=== PATIENT | female | born 1945 | race African-American/Black ===

== ENCOUNTER 2016-06-02 15:17 | Observation (INO) | payer MEDICARE, OTHER ==
[~2016-06-02] VITALS: Ht 167.6 cm; Wt 95.4 kg
[~2016-06-02 15:17] MED LIST: ROBA750T3 PO
[2016-06-02 15:19] VITALS: BP 171/112; PULSE 87; RESP 15; TEMP 98; O2SAT 96
[2016-06-02 16:39] LABS: ALT (GPT) 50 U/L (10-53); ANION GAP 6 MEQ/L (5-15); AST (GOT) 66 U/L (15-37); BLOOD UREA NITROGEN 8 MG/DL (7-18); CHLORIDE 102 MEQ/L (98-107); GLOMERULAR FILTRATION RATE 88 ML/MIN (>89); POTASSIUM 4.2 MEQ/L (3.5-5.1); SODIUM (NA) 138 MEQ/L (136-145)
[2016-06-02 16:41] LABS: ALKALINE PHOSPHATASE 62 U/L (45-117); TOTAL BILIRUBIN ADULT 0.9 MG/DL (0.2-1.0)
[2016-06-02 16:45] LABS: AUTOMATED NEUTROPHIL # 2.5 TH/MM3 (1.8-7.7); BASOPHIL % 0.5 % (0.0-2.0); EOSINOPHIL % 0.2 % (0.0-4.0); HEMATOCRIT 37.5 % (35.0-46.0); HEMO FLAGS DIFF FINAL; LYMPH % 23.5 % (9.0-44.0); LYMPHOCYTE # 0.9 TH/MM3 (1.0-4.8); MEAN CELL VOLUME 86.5 FL (80.0-100.0); MEAN CORPUSCULAR HEMOGLOBIN 29.2 PG (27.0-34.0); MEAN CORPUSCULAR HGB CONC 33.7 % (32.0-36.0); MONO % 12.6 % (0.0-8.0); NEUT % 63.2 % (16.0-70.0); PLATELET COUNT 141 TH/MM3 (150-450); RED BLOOD COUNT 4.34 MIL/MM3 (4.00-5.30); RED CELL DISTRIBUTION WIDTH 14.9 % (11.6-17.2); WHITE BLOOD COUNT 3.9 TH/MM3 (4.0-11.0)
[2016-06-02] MEDS ORDERED: ROBA750T PO (18:57)
--- NOTE | 2016-06-02 18:59 | PD ---
HPI Chief Complaint: Dizziness Time Seen by Provider: 18:08 Travel History International Travel<30 days: No Contact w/Intl Traveler<30days: No Traveled to known affect area: No History of Present Illness HPI 70-year-old female complains of left knee pain. Patient states that she probably had a seizure yesterday and injured the left knee. Patient states that family member found her on the floor with jerking motions. Patient states that she had the seizure episode last year. Patient states that she did not see her physician for that. Patient states that he has some dizziness yesterday. Patient denies any dizziness today. Patient denies any headache. Patient denies any neck pain. Patient denies any chest pain or shortness of breath. Patient denies abdominal pain. Patient denies any weakness or numbness of extremity. Patient has history of hypertension and was on metoprolol and Lasix. Patient states that she ran out of her medications about a year ago and has not taking any medication since then. Patient states that she has sharp pain localized to the medial aspect the left knee. Patient denies any pain radiation. Patient states the pain is worse with weightbearing. On a scale of 1-10 the pain is a 7. Patient has history of subarachnoid hemorrhage in 2009 status post coiling procedure. PFSH Past Medical History Anemia: Yes Arthritis: No Asthma: Yes Blood Disorders: No Heart Rhythm Problems: No Cancer: No Cardiovascular Problems: No High Cholesterol: No Chest Pain: No Congestive Heart Failure: No COPD: No Cerebrovascular Accident: No Diabetes: Yes Diminished Hearing: No Genitourinary: No Headaches: No Hypertension: No Musculoskeletal: No Neurologic: No Reproductive: No Respiratory: Yes Migraines: No Myocardial Infarction: No Seizures: No Sleep Apnea: No Menopausal: Yes Past Surgical History Abdominal Surgery: No Cardiac Surgery: No Ear Surgery: No Endocrine Surgery: No Eye Surgery: No Genitourinary Surgery: No Gynecologic Surgery: No Neurologic Surgery: Yes (SUBARACHNOID HEMORRHAGE, ) Oral Surgery: No Thoracic Surgery: No Other Surgery: Yes Social History Alcohol Use: No Tobacco Use: No Substance Use: No Allergies-Medications (Allergen,Severity, Reaction): Coded Allergies: Morphine (Verified Allergy, Severe, TROUBLE BREATHING, 12/10/14) Reported Meds & Prescriptions Reported Meds & Active Scripts Active Reported Robaxin (Methocarbamol) 750 Mg Tab 750 Mg PO Q4H Review of Systems General / Constitutional: No: Fever Eyes: No: Visual changes HENT: No: Headaches Cardiovascular: No: Chest Pain or Discomfort Respiratory: No: Shortness of Breath Gastrointestinal: No: Abdominal Pain Genitourinary: No: Dysuria Musculoskeletal: Positive: Pain Skin: No Rash Neurologic: No: Weakness Psychiatric: No: Depression Endocrine: No: Polydipsia Hematologic/Lymphatic: No: Easy Bruising Physical Exam Narrative GENERAL: Well-nourished, well-developed patient. SKIN: Warm and dry. HEAD: Normocephalic. EYES: No scleral icterus. No injection or drainage. NECK: Supple, trachea midline. No JVD or lymphadenopathy. CARDIOVASCULAR: Regular rate and rhythm without murmurs, gallops, or rubs. RESPIRATORY: Breath sounds equal bilaterally. No accessory muscle use. GASTROINTESTINAL: Abdomen soft, non-tender, nondistended. MUSCULOSKELETAL: No cyanosis, or edema. Patient has moderate tenderness on palpation medial aspect the left knee joint. Full range of motion of the left knee. Knee joints stable. No effusion noted. BACK: Nontender without obvious deformity. No CVA tenderness. Neurologic exam: Patient awake and alert oriented 3. No obvious focal neurological deficit. Data Data Last Documented VS Vital Signs Date Time Temp Pulse Resp B/P Pulse Ox O2 Delivery O2 Flow Rate FiO2 06/02/16 20:10 97.8 67 18 130/76 98 Room Air Orders Electrocardiogram (06/02/16 15:31) Complete Blood Count With Diff (06/02/16 15:31) Comprehensive Metabolic Panel (06/02/16 15:31) Ct Brain W/O Iv Contrast(Rout) (06/02/16 18:47) Knee, Ltd (1 Or 2vws) (06/02/16 18:47) Urinalysis - C+S If Indicated (06/02/16 18:48) Urine Culture (06/02/16 20:00) Lorazepam Inj (Ativan Inj) (06/02/16 21:30) ^ Seizure Precautions (06/02/16 21:19) Bedside Glucose JOYCE.AC&HS (06/02/16 21:19) ^ Blood Glucose Goal (Criteria (06/02/16 21:19) ^ Hypoglycemia 51 - 69 Mg/Dl (06/02/16 21:19) ^ Hypoglycemia 50 Mg/Dl Or < (06/02/16 21:19) ^ Notify Dr: Other (06/02/16 21:19) Dextrose 50% In Mo (Vial) Inj (D50w (Vi (06/02/16 21:30) Glucagon Inj (Glucagon Inj) (06/02/16 21:30) Insulin Aspart Supplemtl Scale (Novolog (06/03/16 07:00) Place In Observation (06/02/16 ) Vital Signs (Adult) Q4H (06/02/16 21:19) Activity Oob With Assistance (06/02/16 21:19) Diet 1800 Ada Cons Carb (06/03/16 Breakfast) Sodium Chlor 0.9% 1000 Ml Inj (Ns 1000 M (06/02/16 21:19) Sodium Chloride 0.9% Flush (Ns Flush) (06/02/16 21:30) Sodium Chloride 0.9% Flush (Ns Flush) (06/03/16 09:00) Ondansetron Inj (Zofran Inj) (06/02/16 21:30) Bisacodyl Supp (Dulcolax Supp) (06/02/16 21:30) Comprehensive Metabolic Panel (06/03/16 06:00) Complete Blood Count With Diff (06/03/16 06:00) Pt Request For Service (06/02/16 21:19) Scd Bilateral/Knee High JOYCE.BID (06/02/16 21:19) Graham Bilateral/Knee High JOYCE.QSHIFT (06/02/16 21:19) Acetaminophen (Tylenol) (06/02/16 21:30) Acetamin-Hydrocod 325-5 Mg ([place] 5-325 (06/02/16 21:30) Hydromorphone Pf Inj (Dilaudid Pf Inj) (06/02/16 21:30) Labs Laboratory Tests Test 06/02/16 06/02/16 16:05 20:00 White Blood Count 3.9 TH/MM3 Red Blood Count 4.34 MIL/MM3 Hemoglobin 12.7 GM/DL Hematocrit 37.5 % Mean Corpuscular Volume 86.5 FL Mean Corpuscular Hemoglobin 29.2 PG Mean Corpuscular Hemoglobin 33.7 % Concent Red Cell Distribution Width 14.9 % Platelet Count 141 TH/MM3 Mean Platelet Volume 8.8 FL Neutrophils (%) (Auto) 63.2 % Lymphocytes (%) (Auto) 23.5 % Monocytes (%) (Auto) 12.6 % Eosinophils (%) (Auto) 0.2 % Basophils (%) (Auto) 0.5 % Neutrophils # (Auto) 2.5 TH/MM3 Lymphocytes # (Auto) 0.9 TH/MM3 Monocytes # (Auto) 0.5 TH/MM3 Eosinophils # (Auto) 0.0 TH/MM3 Basophils # (Auto) 0.0 TH/MM3 CBC Comment DIFF FINAL Differential Comment Sodium Level 138 MEQ/L Potassium Level 4.2 MEQ/L Chloride Level 102 MEQ/L Carbon Dioxide Level 30.0 MEQ/L Anion Gap 6 MEQ/L Blood Urea Nitrogen 8 MG/DL Creatinine 0.79 MG/DL Estimat Glomerular Filtration 88 ML/MIN Rate Random Glucose 88 MG/DL Calcium Level 8.8 MG/DL Total Bilirubin 0.9 MG/DL Aspartate Amino Transf 66 U/L (AST/SGOT) Alanine Aminotransferase 50 U/L (ALT/SGPT) Alkaline Phosphatase 62 U/L Total Protein 8.6 GM/DL Albumin 3.5 GM/DL Urine Color YELLOW Urine Turbidity HAZY Urine pH 5.5 Urine Specific [place] 1.012 Urine Protein NEG mg/dL Urine Glucose (UA) NEG mg/dL Urine Ketones NEG mg/dL Urine Occult Blood TRACE Urine Nitrite NEG Urine Bilirubin NEG Urine Urobilinogen LESS THAN 2.0 MG/DL Urine Leukocyte Esterase LARGE Urine RBC 2 /hpf Urine WBC /hpf Urine Bacteria MOD /hpf Urine Hyaline Casts 1 /lpf Urine Mucus FEW /lpf Microscopic Urinalysis Comment CULTURE INDICATED MDM Medical Decision Making Medical Screen Exam Complete: Yes Emergency Medical Condition: Yes Interpretation(s) Last Impressions Head CT 06/02/161846 Signed Impressions: Service Date/Time: Thursday, June 02, 2016 19:09 - CONCLUSION: 1. No acute findings. 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 Stable frontal encephalomalacia. Elier Pretty MD 2044 PM. CBC within normal limit. CMP within normal limit. Differential Diagnosis Differential diagnosis including new-onset seizure, electrolyte imbalance, TIA, CVA, dehydration, arrhythmia, knee contusion, fracture, dislocation. Narrative Course 70-year-old female with left knee injury and seizure episode yesterday. Diagnosis Primary Impression: Seizure Additional Impression: Fracture of femur, distal, left, closed Qualified Code: S72.402A - Closed fracture of distal end of left femur, unspecified fracture morphology, initial encounter Admitting Information Admitting Physician Requests: Observation Stanley Epps MD Jun 02, 2016 18:59
--- NOTE | 2016-06-02 19:56 | RADRPT ---
EXAM DATE/TIME: 06/02/2016 19:09 [facility] COMPARISON: CT BRAIN W/O CONTRAST, December 11, 2014, 0:52. INDICATIONS : Dizziness since yesterday/. RADIATION DOSE: 32.48 CTDIvol (mGy) MEDICAL HISTORY : Diabetes mellitus type 2. subarachnoid hemorrhage SURGICAL HISTORY : None. ENCOUNTER: Initial ACUITY: 2 days PAIN SCALE: 2/10 LOCATION: cranial TECHNIQUE: Multiple contiguous axial images were obtained of the head. Using automated exposure control and adj ustment of the mA and/or kV according to patient size, radiation dose was kept as low as reasonably a chievable to obtain optimal diagnostic quality images. FINDINGS: Compare November 2014. 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 No mass , hemorrhage or shift. No hydrocephalus. There is some encephalomalacia in the frontal lobes bilatera lly, stable. No recent infarct identified. CONCLUSION: 1. No acute findings. 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 Stable frontal encephalomalaci a. Elier Pretty MD on June 02, 2016 at 19:52 Board Certified Radiologist. This report was verified electronically.
[2016-06-02 20:07] VITALS: BP 132/71; PULSE 96; RESP 18; TEMP 97.8; O2SAT 99
[2016-06-02 20:10] VITALS: BP 130/76; PULSE 67; RESP 18; TEMP 97.8; O2SAT 98
[2016-06-02 21:05] LABS: BACTERIA, URINE MOD /hpf; BLOOD, URINE TRACE (NEG); COMMENT (UR) CULTURE INDICATED; CULTURE IF INDICATED CULTURE INDICATED; GLUCOSE,URINE NEG (NEG); HYALINE CAST, URINE 1 /lpf (RARE); KETONE, URINE NEG (NEG); MUCUS URINE FEW /lpf (OCC); NITRITE,URINE NEG (NEG); PH, URINE 5.5 (5.0-8.5); URINE COLOR YELLOW (YELLW/STRAW)
--- NOTE | 2016-06-02 21:24 | HHI.HP ---
[facility] No Primary Care Physician Admission Diagnosis Diagnoses: (1) Seizure Diagnosis: Principal (2) Non-compliance Diagnosis: Principal (3) Fracture of femur, distal, left, closed Diagnosis: Principal (4) UTI (urinary tract infection) Diagnosis: Principal (5) HTN (hypertension) Diagnosis: Principal (6) DM (diabetes mellitus) Diagnosis: Principal Travel History International Travel<30 Days: No Contact w/Intl Traveler <30 Da: No Traveled to Known Affected Are: No History of Present Illness This is a 70-year-old female with a PMH of HTN, SAH 2008, Seizure Disorder and Non-Compliance who came to the ER with complaints of left knee pain following seizure yesterday. Per patient, she's been off seizure medications of her own accord x1 yr. Denies any previous seizure activity prior to yesterday. Main complaint is left knee pain. Denies any other symptoms. On arrival, BP 171/112 , HR 87, O2 sat 96% on RA, Afebrile. WBC 3.9, at baseline. Platelets 141, previously 143 on 08/28/09. Chemistry essentially unremarkable, at baseline. UA with UTI. CT Head with no acute findings, previous aneurysm clip on the left. Knee X-ray with avulsion fracture through medial aspect of the medial femoral condyle. Ortho consulted by ER physician, however injury likely non- operable. Review of Systems Other ROS: 14 point review of systems otherwise negative. Past Family Social History Past Medical History PMH: HTN, SAH 2009, Seizure Disorder and Non-Compliance Past Surgical History PAST SURGICAL HISTORY: SAH with evacuation Allergies: Coded Allergies: Morphine (Verified Allergy, Severe, TROUBLE BREATHING, 12/10/14) Family History PAST FAMILY HISTORY: Reviewed. No h/o DM or CAD Social History PAST SOCIAL HISTORY: Negative for all, tobacco or drugs. Physical Exam Vital Signs Vital Signs Date Time Temp Pulse Resp B/P Pulse Ox O2 Delivery O2 Flow Rate FiO2 06/02/16 20:10 97.8 67 18 130/76 98 Room Air 06/02/16 20:10 17 99 Room Air 06/02/16 20:07 97.8 96 18 132/71 99 Room Air 06/02/16 15:19 98.0 87 15 171/112 96 Physical Exam PE: GENERAL: Middle-aged female in no acute distress. HEENT: PERRLA, EOMI. No scleral icterus or conjunctival pallor. No lid lag or facial droop. CARDIOVASCULAR: Regular rate and rhythm. No obvious murmurs to auscultation. No chest tenderness to palpation. RESPIRATORY: No obvious rhonchi or wheezing. Clear to auscultation. Breath sounds equal bilaterally. GASTROINTESTINAL: Abdomen soft, non-tender, nondistended. BS normal. MUSCULOSKELETAL: Extremities without clubbing, cyanosis, or edema. No obvious deformities. Left knee tenderness palpation NEUROLOGICAL: Awake, alert and oriented x4. No focal neurologic deficits. Moving both upper and lower extremities spontaneously. Laboratory Laboratory Tests Test 06/02/16 06/02/16 16:05 20:00 White Blood Count 3.9 Red Blood Count 4.34 Hemoglobin 12.7 Hematocrit 37.5 Mean Corpuscular Volume 86.5 Mean Corpuscular Hemoglobin 29.2 Mean Corpuscular Hemoglobin 33.7 Concent Red Cell Distribution Width 14.9 Platelet Count 141 Mean Platelet Volume 8.8 Neutrophils (%) (Auto) 63.2 Lymphocytes (%) (Auto) 23.5 Monocytes (%) (Auto) 12.6 Eosinophils (%) (Auto) 0.2 Basophils (%) (Auto) 0.5 Neutrophils # (Auto) 2.5 Lymphocytes # (Auto) 0.9 Monocytes # (Auto) 0.5 Eosinophils # (Auto) 0.0 Basophils # (Auto) 0.0 CBC Comment DIFF FINAL Differential Comment Sodium Level 138 Potassium Level 4.2 Chloride Level 102 Carbon Dioxide Level 30.0 Anion Gap 6 Blood Urea Nitrogen 8 Creatinine 0.79 Estimat Glomerular Filtration 88 Rate Random Glucose 88 Calcium Level 8.8 Total Bilirubin 0.9 Aspartate Amino Transf 66 (AST/SGOT) Alanine Aminotransferase 50 (ALT/SGPT) Alkaline Phosphatase 62 Total Protein 8.6 Albumin 3.5 Urine Color YELLOW Urine Turbidity HAZY Urine pH 5.5 Urine Specific [place] 1.012 Urine Protein NEG Urine Glucose (UA) NEG Urine Ketones NEG Urine Occult Blood TRACE Urine Nitrite NEG Urine Bilirubin NEG Urine Urobilinogen LESS THAN 2.0 Urine Leukocyte Esterase LARGE Urine RBC 2 Urine WBC Urine Bacteria MOD Urine Hyaline Casts 1 Urine Mucus FEW Microscopic Urinalysis Comment CULTURE INDICATED Date/Time Procedure Status Source Growth 06/02/16 20:00 Urine Culture Received Urine Clean Catch Pending Result Diagram: 06/02/16 1605 06/02/16 1605 Assessment and Plan Problem List: (1) Seizure ICD Code: R56.9 Status: Acute (2) Non-compliance ICD Code: Z91.19 Status: Acute (3) Fracture of femur, distal, left, closed ICD Code: S72.402A Status: Acute (4) UTI (urinary tract infection) ICD Code: N39.0 Status: Acute (5) HTN (hypertension) ICD Code: I10 Status: Acute (6) DM (diabetes mellitus) ICD Code: E11.9 Status: Acute Assessment and Plan A/P: 1. Seizure: h/o Seizure Disorder, off meds for approx 1yr of her own accord. Seizure activity yesterday, did not seek medical attention. CT Head w/ no acute findings, previous aneurysm clip on left, images reviewed by me. Seizure Precautions, Ativan prn. Neurology consulted by ER physician for further recommendations. 2. Non-Compliance: w/ seizure medication and antihypertensives, pt counselled. 3. UTI: U/a w/ UTI. Start IV Rocephin, IVF, repeat labs in am. 4. Left Knee Fx: s/p seizure w/ fall yesterday, X-ray w/ left knee avulsion fracture, Ortho consulted by ER physician, likely non-operable. 5. HTN: BP 170's on arrival, currently 150/88, HR 80. Will monitor. 6. DM: Sliding scale w/ Accu-Cheks. 7. DVT Prophylaxis: SCD/Teds. 8. Social work for d/c planning as needed. 9. Case discussed w/ ER physician at length. Problem Qualifiers (1) Fracture of femur, distal, left, closed: Qualified Code: S72.402A - Closed fracture of distal end of left femur, unspecified fracture morphology, initial encounter Yani Clay MD Jun 02, 2016 21:23
[2016-06-02] MEDS ORDERED: ONDANSETRON HCL 4 MG/2 ML VIAL IVP PRN (21:30)
[2016-06-02] MEDS ORDERED: ACETAMINOPHEN 325 MG TAB PO PRN (21:30)
[2016-06-02] MEDS: SODIUM CHLOR 0.9% 1000 ML INJ 1,000 ML IV SCH (21:30)
[2016-06-02] MEDS ORDERED: HYDROmorphone HCL PF 1 MG/ML VIAL IV PRN (21:30)
[2016-06-02] MEDS ORDERED: BISACODYL 10 MG SUPP PR PRN (21:30)
[2016-06-02] MEDS ORDERED: DEXTROSE 50% IN WATER 50 ML VIAL(D50) IV PUSH PRN (21:30)
[2016-06-02] MEDS ORDERED: GLUCAGON 1 MG/ML VIAL OTHER PRN (21:30)
[2016-06-02] MEDS ORDERED: SODIUM CHLORIDE 0.9% FLUSH 5 ML FLUSH FLUSH PRN (21:30)
[2016-06-02] MEDS ORDERED: LORazepam 2 MG/ML VIAL IV PUSH PRN (21:30)
[2016-06-02] MEDS: cefTRIAXone INJ 1,000 MG in SODIUM CHLORIDE 0.9% INJ 100 ML IV SCH (21:38)
[2016-06-02] MEDS: ACETAMINOPHEN/HYDROcodone 325 MG/5 MG TAB PO PRN (21:39)
--- NOTE | 2016-06-02 21:43 | RADRPT ---
EXAM DATE/TIME: 06/02/2016 19:07 [facility] COMPARISON: No previous studies available for comparison. INDICATIONS : Left knee pain due to fall at 3 am today. MEDICAL HISTORY : None. SURGICAL HISTORY : None. ENCOUNTER: Initial ACUITY: 1 day PAIN SCORE: 5/10 LOCATION: Left Knee. FINDINGS: There is an avulsion fracture through the medial aspect of the medial femoral condyle. Moderate osteo arthritis at the knee joint. Trace joint fluid. CONCLUSION: 1. Avulsion fracture through medial aspect of medial femoral condyle. Moderate osteoarthritis. Elier Pretty MD on June 02, 2016 at 21:41 Board Certified Radiologist. This report was verified electronically.
[2016-06-02 21:53] VITALS: BP 150/88; PULSE 80; RESP 17; TEMP 97.8; O2SAT 98
[2016-06-03] VITALS (14 sets, daily range): BP systolic 126–158; BP diastolic 79–94; PULSE 56–91; RESP 14–18; TEMP 97.6–98.5; O2SAT 97–100
[2016-06-03] MEDS ORDERED: INSULIN ASPART SUPPLEMENTAL SCALE SQ SCH (07:00)
[2016-06-03 08:44] LABS: AUTOMATED NEUTROPHIL # 1.7 TH/MM3 (1.8-7.7); BASOPHIL % 0.4 % (0.0-2.0); EOSINOPHIL % 0.1 % (0.0-4.0); HEMO FLAGS DIFF FINAL; LYMPHOCYTE # 0.8 TH/MM3 (1.0-4.8); MEAN CELL VOLUME 87.4 FL (80.0-100.0); MEAN CORPUSCULAR HEMOGLOBIN 29.4 PG (27.0-34.0); MEAN CORPUSCULAR HGB CONC 33.7 % (32.0-36.0); MONO % 13.7 % (0.0-8.0); NEUT % 58.8 % (16.0-70.0); PLATELET COUNT 127 TH/MM3 (150-450); RED BLOOD COUNT 4.01 MIL/MM3 (4.00-5.30); RED CELL DISTRIBUTION WIDTH 14.6 % (11.6-17.2); WHITE BLOOD COUNT 2.8 TH/MM3 (4.0-11.0)
[2016-06-03 09:10] LABS: ALKALINE PHOSPHATASE 59 U/L (45-117); ALT (GPT) 37 U/L (10-53); ANION GAP 6 MEQ/L (5-15); AST (GOT) 45 U/L (15-37); BICARBONATE 29.2 MEQ/L (21.0-32.0); BLOOD UREA NITROGEN 10 MG/DL (7-18); CHLORIDE 103 MEQ/L (98-107); GLOMERULAR FILTRATION RATE 92 ML/MIN (>89); POTASSIUM 3.8 MEQ/L (3.5-5.1); SODIUM (NA) 138 MEQ/L (136-145); TOTAL BILIRUBIN ADULT 0.6 MG/DL (0.2-1.0)
[2016-06-03] MEDS: SODIUM CHLOR 0.9% 1000 ML INJ 1,000 ML IV SCH (09:46)
[2016-06-03] MEDS: SODIUM CHLORIDE 0.9% FLUSH 5 ML FLUSH FLUSH SCH ×2 (09:47→22:35)
--- NOTE | 2016-06-03 10:06 | PD.ORT.PN ---
Subjective Subjective Remarks Lisa is a 70-year-old female with a syncopal episode with fall from a seated position and chair. She complains of left knee pain. Orthopedics has been consulted due to avulsion fracture of left distal medial condyle of the femur. She has no other orthopedic complaints other than arthritis in bilateral knees with the right being worse than the left. Objective Vitals Vital Signs Date Time Temp Pulse Resp B/P Pulse Ox O2 Delivery O2 Flow Rate FiO2 06/03/16 07:00 97.7 61 18 146/92 100 06/03/16 06:00 65 06/03/16 05:00 97.6 56 18 158/94 98 06/03/16 05:00 56 06/03/16 02:31 97 Room Air 06/03/16 02:30 72 157/90 97 Room Air 06/02/16 22:40 17 06/02/16 21:53 97.8 80 17 150/88 98 Room Air 06/02/16 20:10 97.8 67 18 130/76 98 Room Air 06/02/16 20:10 17 99 Room Air 06/02/16 20:07 97.8 96 18 132/71 99 Room Air 06/02/16 15:19 98.0 87 15 171/112 96 I/O 06/02/16 06/02/16 06/02/16 06/03/16 06/03/16 06/03/16 07:00 15:00 23:00 07:00 15:00 23:00 Intake Total 200 ml 1040 ml Output Total 500 ml Balance 200 ml 540 ml Intake Oral 200 ml 240 ml IV Total 800 ml Output Urine Total 500 ml # Voids 1 # Bowel Movements 0 0 Result Diagram: 06/03/16 0811 06/03/16 0811 Imaging Last 24 hours Impressions Knee X-Ray 06/02/161846 Signed Impressions: Service Date/Time: Thursday, June 02, 2016 19:07 - CONCLUSION: 1. Avulsion fracture through medial aspect of medial femoral condyle. Moderate osteoarthritis. Elier Pretty MD Head CT 06/02/161846 Signed Impressions: Service Date/Time: Thursday, June 02, 2016 19:09 - CONCLUSION: 1. No acute findings. 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 Stable frontal encephalomalacia. Elier Pretty MD Objective Remarks Bilateral upper extremities: Full range of motion and neurovascularly intact Right lower extremity: No pain with hip range of motion. Moderate crepitus through range of motion of the knee. She has mild discomfort through range of motion of the knee. Distally she has intact sensation good capillary refills Left lower extremity: No pain with hip range of motion. She has tenderness to palpation over medial distal femur. She has no tenderness in the lateral side of the knee. She has minimal tenderness to palpation over the medial collateral ligament distal to the fracture. She is stable to varus stresses and also valgus stresses. She does have tenderness with valgus maneuver. He has negative anterior-posterior drawer sign. Knee range of motion is from 0 to 60 .Distally she has intact sensation with good capillary refills. She has strong dorsiflexion plantar flexion of foot Assessment & Plan Assessment and Plan Left avulsion fracture of distal medial condyle of femur It is explained to Lisa that this fracture does not require surgery at this time. It is minimally displaced. Due to the stability of the fracture she will be weightbearing as tolerated in either a knee immobilizer or hinged knee brace. I do want physical therapy to work on gentle range of motion of the knee. No strengthening at this time. She will use a walker for ambulation. Once cleared from physical therapy standpoint, she may be discharged to home with home health physical therapy. I would like to see her back in office in approximately 2 weeks for repeat x-rays. Patient's x-rays and plan are reviewed and agreed with Dr. Garcia. ROSA PRECIADO PA-C Jun 03, 2016 10:06
[2016-06-03] MEDS ORDERED: cloNIDine HCL 0.1 MG TAB PO PRN (10:15)
[2016-06-03] MEDS ORDERED: ENALAPRILAT 1.25 MG/ML VIAL IV PRN (10:15)
[2016-06-03] MEDS ORDERED: hydrALAZINE HCL 20 MG/ML VIAL IV PRN (10:15)
--- NOTE | 2016-06-03 10:20 | HHI.PR ---
Subjective Remarks F/u sz. No recurrence . Not on AED. Dw RN and ortho PA Objective Vitals Vital Signs Date Time Temp Pulse Resp B/P Pulse Ox O2 Delivery O2 Flow Rate FiO2 06/03/16 07:00 97.7 61 18 146/92 100 06/03/16 06:00 65 06/03/16 05:00 97.6 56 18 158/94 98 06/03/16 05:00 56 06/03/16 02:31 97 Room Air 06/03/16 02:30 72 157/90 97 Room Air 06/02/16 22:40 17 06/02/16 21:53 97.8 80 17 150/88 98 Room Air 06/02/16 20:10 97.8 67 18 130/76 98 Room Air 06/02/16 20:10 17 99 Room Air 06/02/16 20:07 97.8 96 18 132/71 99 Room Air 06/02/16 15:19 98.0 87 15 171/112 96 I/O 06/02/16 06/02/16 06/02/16 06/03/16 06/03/16 06/03/16 07:00 15:00 23:00 07:00 15:00 23:00 Intake Total 200 ml 1040 ml Output Total 500 ml Balance 200 ml 540 ml Intake Oral 200 ml 240 ml IV Total 800 ml Output Urine Total 500 ml # Voids 1 # Bowel Movements 0 0 Result Diagram: 06/03/16 0811 06/03/16 0811 Imaging Last Impressions Knee X-Ray 06/02/161846 Signed Impressions: Service Date/Time: Thursday, June 02, 2016 19:07 - CONCLUSION: 1. Avulsion fracture through medial aspect of medial femoral condyle. Moderate osteoarthritis. Elier Pretty MD Head CT 06/02/161846 Signed Impressions: Service Date/Time: Thursday, June 02, 2016 19:09 - CONCLUSION: 1. No acute findings. 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 Stable frontal encephalomalacia. Elier Pretty MD Objective Remarks GENERAL: Middle-aged female in no acute distress. HEENT: PERRLA, EOMI. No scleral icterus or conjunctival pallor. No lid lag or facial droop. CARDIOVASCULAR: Regular rate and rhythm. No obvious murmurs to auscultation. No chest tenderness to palpation. RESPIRATORY: No obvious rhonchi or wheezing. Clear to auscultation. Breath sounds equal bilaterally. GASTROINTESTINAL: Abdomen soft, non-tender, nondistended. BS normal. MUSCULOSKELETAL: Extremities without clubbing, cyanosis, or edema. No obvious deformities. Left knee tenderness palpation NEUROLOGICAL: Awake, alert and oriented x4. No focal neurologic deficits. Moving both upper and lower extremities spontaneously. Procedures none A/P Problem List: (1) Seizure ICD Code: R56.9 Status: Acute (2) Non-compliance ICD Code: Z91.19 Status: Acute (3) Fracture of femur, distal, left, closed ICD Code: S72.402A Status: Acute (4) UTI (urinary tract infection) ICD Code: N39.0 Status: Acute (5) HTN (hypertension) ICD Code: I10 Status: Chronic (6) DM (diabetes mellitus) ICD Code: E11.9 Status: Chronic Assessment and Plan 1. Seizure: h/o Seizure Disorder, off meds for approx 1yr of her own accord. Seizure activity [employer], did not seek medical attention. CT Head w/ no acute findings, previous aneurysm clip on left, images reviewed by me. Seizure Precautions, Ativan prn. Neurology consulted by ER physician for further recommendations. F/u EEG 2. Non-Compliance: w/ seizure medication and antihypertensives, pt counselled. 3. UTI: U/a w/ UTI. Ct IV Rocephin and dc IVF after present bag, repeat labs in am. 4. Left Knee Fx: s/p seizure w/ fall yesterday, X-ray w/ left knee avulsion fracture, Ortho recommends non-operative mgt with PT and brace 5. HTN: BP 170's on arrival, currently 150/88, HR 80. Will monitor. Dc IVF and start prn 6. DM: Sliding scale w/ Accu-Cheks. 7. DVT Prophylaxis: SCD/Teds. Discharge Planning dc in 1-2 days Problem Qualifiers (1) Fracture of femur, distal, left, closed: Qualified Code: S72.402A - Closed fracture of distal end of left femur, unspecified fracture morphology, initial encounter Ld Gilbert MD Jun 03, 2016 10:20
[2016-06-03] MEDS ORDERED: HYDR-3516 PO (10:21)
--- NOTE | 2016-06-03 10:21 | HHI.DCPOC ---
Discharge Care Plan Diagnosis: (1) UTI (urinary tract infection) (2) Seizure (3) Fracture of femur, distal, left, closed Your Health Problems Are: Difficulty with ADL Exercise Tolerance Chronic Pain Goals to Promote Your Health * To prevent worsening of your condition and complications * To maintain your health at the optimal level Directions to Meet Your Goals Take your medications as prescribed Follow your dietary instruction Follow activity as directed Keep your appointments as scheduled Take your immunizations and boosters as scheduled If your symptoms worsen call your PCP, if no PCP go to Urgent Care Center or Emergency Room Smoking is Dangerous to Your Health. Avoid second hand smoke Call the 24-hour hour crisis hotline for domestic abuse at Ld Gilbert MD Jun 03, 2016 10:21
--- NOTE | 2016-06-03 10:22 | HHI.FF ---
Face to Face Verification Diagnosis: (1) Fracture of femur, distal, left, closed Physical Therapy Order: Evaluate and Treat, Improve ambulation, Strength and gait training I have seen patient Lisa Juarez on 06/03/16. My clinical findings support the need for the requested home health care services because: Deconditioned w/ increased weakness I certify that my clinical findings support that this patient is homebound because: Unsteady gait/balance Ld Gilbert MD Jun 03, 2016 10:22
[2016-06-03] MEDS: INSULIN ASPART SUPPLEMENTAL SCALE SQ SCH ×3 (11:00→21:00)
--- NOTE | 2016-06-03 11:18 | PD.CONS ---
History of Present Illness Service Neurology Consult Requested By er Reason for Consult sz Primary Care Physician No Primary Care Physician History of Present Illness 70-year-old female with a PMH of HTN, SAH 2008, aneurysm clip, Seizures, and Non-Compliance who came to the ER with complaints of left knee pain following seizure yesterday. Per patient, she's been off seizure medications of her own accord x1 yr. very poor hx. unable to tell me which medication she was taking, the nature/character of her sz. states she hasn't seen her pcp in quite some time. feels well this am. CT Head with no acute findings, previous aneurysm clip on the left. glucose 93 Review of Systems Other as above and admit hp Past Family Social History Past Medical History PMH: HTN, SAH 2008, Seizure Disorder and Non-Compliance Past Surgical History PAST SURGICAL HISTORY: SAH with evacuation Allergies: Coded Allergies: Morphine (Verified Allergy, Severe, TROUBLE BREATHING, 12/10/14) Family History PAST FAMILY HISTORY: Reviewed. No h/o DM or CAD Social History PAST SOCIAL HISTORY: Negative for all, tobacco or drugs. Review of Systems All other ROS: ROS reviewed as documented in chart Past Family Social History Allergies: Coded Allergies: Morphine (Verified Allergy, Severe, TROUBLE BREATHING, 12/10/14) Active Ordered Medications Current Medications Medications (Trade) Dose Ordered Sig/Marcos Route Start Time Stop Time Status Last Admin (Ativan Inj) 1 mg Q5M PRN IV PUSH 06/02/16 21:30 (D50w (Vial) Inj) 25 ml UNSCH PRN IV PUSH 06/02/16 21:30 Glucagon 1 mg 1 mg UNSCH PRN OTHER 06/02/16 21:30 (NS 1000 ml Inj) 1,000 ml @ 40 mls/hr Q24H IV 06/02/16 21:19 06/03/16 09:46 (NS Flush) 2 ml UNSCH PRN FLUSH 06/02/16 21:30 (NS Flush) 2 ml BID FLUSH 06/03/16 09:00 (Zofran Inj) 4 mg Q6H PRN IVP 06/02/16 21:30 (Dulcolax Supp) 10 mg DAILY PRN ME 06/02/16 21:30 (Tylenol) 650 mg Q6H PRN PO 06/02/16 21:30 ([place] 5-325 Mg) 1 tab Q4H PRN PO 06/02/16 21:30 06/02/16 21:39 Hydromorphone HCl 0.5 mg 0.5 mg Q3H PRN IV 06/02/16 21:30 (Rocephin Inj/NS Inj) 100 ml @ 200 mls/hr Q24H IV 06/02/16 22:00 06/02/16 21:38 (Vasotec Inj) 1.25 mg Q6H PRN IV 06/03/16 10:15 (Apresoline Inj) 10 mg Q6H PRN IV 06/03/16 10:15 (Catapres) 0.1 mg Q6H PRN PO 06/03/16 10:15 Exam I&O / VS 06/02/16 06/02/16 06/03/16 15:00 23:00 07:00 Intake Total 200 ml 1040 ml Output Total 500 ml Balance 200 ml 540 ml Intake Oral 200 ml 240 ml IV Total 800 ml Output Urine Total 500 ml # Voids 1 # Bowel Movements 0 0 Vital Signs Date Time Temp Pulse Resp B/P Pulse Ox O2 Delivery O2 Flow Rate FiO2 06/03/16 08:00 66 06/03/16 07:00 97.7 61 18 146/92 100 06/03/16 06:00 65 06/03/16 05:00 97.6 56 18 158/94 98 06/03/16 05:00 56 06/03/16 02:31 97 Room Air 06/03/16 02:30 72 157/90 97 Room Air 06/02/16 22:40 17 06/02/16 21:53 97.8 80 17 150/88 98 Room Air 06/02/16 20:10 97.8 67 18 130/76 98 Room Air 06/02/16 20:10 17 99 Room Air 06/02/16 20:07 97.8 96 18 132/71 99 Room Air 06/02/16 15:19 98.0 87 15 171/112 96 General: Alert and Oriented, No acute distress Respiratory: Non-labored respirations Neurologic: Alert, Oriented, CN II-XII intact Psychiatric: Cooperative, Appropriate mood & affect, Normal judgement, Non- suicidal Exam Comments left le in cast, able to move toes, able to lift all 4 ext to gravity Review/Management Diagnosis/Plan: (1) Seizure Plan: poor hx she is certainly at higher risk for sz's 2/2 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 s/b d/w pt no driving/swimming/climbing heights outpatient f/u in 1-2 weeks (2) Cerebral aneurysm without rupture Plan: left ica/mca (3) HTN (hypertension) (4) Fracture of femur, distal, left, closed Problem Qualifiers (1) HTN (hypertension): Qualified Code: I10 - Essential hypertension (2) Fracture of femur, distal, left, closed: Qualified Code: S72.402A - Closed fracture of distal end of left femur, unspecified fracture morphology, initial encounter Sarthak Salcedo MD Jun 03, 2016 11:18
[2016-06-03] MEDS: levETIRAcetam 500 MG TAB PO SCH ×2 (13:15→22:33)
[2016-06-03] MEDS: cefTRIAXone INJ 1,000 MG in SODIUM CHLORIDE 0.9% INJ 100 ML IV SCH (22:32)
[2016-06-03] MEDS: ACETAMINOPHEN/HYDROcodone 325 MG/5 MG TAB PO PRN (22:34)
--- NOTE | 2016-06-03 23:34 | MG ---
cc: RALF DEE MD Lab No: [id number] Date: 06/03/16 Age: 70 Sex: F Race: DATE OF 1945 HISTORY A 70-year-old with history of dizziness, possible seizure. Mixed frequency alpha theta background with some apiculate looking waveforms, high-frequency myogenic artifact in the frontal channels. Good EEG variability reactivity. Generalized slowing with transition into drowsy state followed by bursts of 2 to 3 Hz delta activity with theta. Appeared to go back to awake followed by sleep state. Appearance of spindles and K complexes, occasional sharp transients left frontal region, example epoch 73. Some driving with photic stimulation noted. Single EKG showing sinus rhythm. No active seizures. INTERPRETATION Mild left frontal cortical irritability, mixed frequency EEG and sleep state part which may be related to psychotropic medications. Clinical correlation. Ralf Dee MD MG/EO /9:23 PM /11:19 PM MTDD
[2016-06-04] VITALS: PULSE 61
[2016-06-04 01:00] VITALS: PULSE 55
[2016-06-04 02:00] VITALS: PULSE 55
[2016-06-04] MEDS ORDERED: LEVE500 PO (05:38)
[2016-06-04] MEDS ORDERED: ROLLER WALKER1 MI1 (05:38)
--- NOTE | 2016-06-04 07:44 | PD.ORT.PN ---
Subjective Subjective Remarks s/p left femur avulsion fx doing well. pain controlled. has been out of bed with assistance Objective Vitals Vital Signs Date Time Temp Pulse Resp B/P Pulse Ox O2 Delivery O2 Flow Rate FiO2 06/04/16 02:00 55 06/04/16 01:00 55 06/04/16 00:00 61 06/03/16 23:19 98.5 83 18 133/83 98 06/03/16 23:00 91 06/03/16 22:00 62 06/03/16 21:00 86 06/03/16 20:38 98.5 65 18 126/89 99 06/03/16 20:00 71 06/03/16 19:00 66 06/03/16 17:15 14 06/03/16 15:00 98.5 57 14 128/79 98 06/03/16 11:00 98.1 59 18 135/90 98 06/03/16 08:00 66 I/O 06/03/16 06/03/16 06/03/16 06/04/16 06/04/16 06/04/16 07:00 15:00 23:00 07:00 15:00 23:00 Intake Total 1040 ml 720 ml Output Total 500 ml Balance 540 ml 720 ml Intake Oral 240 ml 720 ml IV Total 800 ml Output Urine Total 500 ml # Voids 2 # Bowel Movements 0 1 Result Diagram: 06/03/16 0811 06/03/16 0811 Imaging Last 24 hours Impressions Knee X-Ray 06/02/161846 Signed Impressions: Service Date/Time: Thursday, June 02, 2016 19:07 - CONCLUSION: 1. Avulsion fracture through medial aspect of medial femoral condyle. Moderate osteoarthritis. Elier Pretty MD Head CT 06/02/161846 Signed Impressions: Service Date/Time: Thursday, June 02, 2016 19:09 - CONCLUSION: 1. No acute findings. 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 Stable frontal encephalomalacia. Elier Pretty MD Objective Remarks LLE: +ROM knee brace. moderate swelling. NVI distally Assessment & Plan Assessment and Plan 1) Left avulsion fracture of distal medial condyle of femur WBAT with brace on -work on ROM of knee -ortho clear for discharge home -f/u with Sydnie or AIDEE in 2 weeks Freddy Hartman Jun 04, 2016 07:43
--- NOTE | 2016-06-04 07:45 | HHI.FF ---
Face to Face Verification Diagnosis: (1) Fracture of femur, distal, left, closed Physical Therapy Gait training Knee: Knee fracture, Protocol: Left, Full weight bearing (with brace on) Left LE Weight Bearing: WB as tolerated (with brace on) Left LE Range of Motion: Passive ROM (no strengthening) I have seen patient Lisa Juarez on 06/04/16. My clinical findings support the need for the requested home health care services because: Ltd mobility - disease progression I certify that my clinical findings support that this patient is homebound because: Post-op weakness Freddy Hartman Jun 04, 2016 07:45
[2016-06-04 08:00] VITALS: BP 151/94; PULSE 64; RESP 18; TEMP 97.8; O2SAT 99
--- NOTE | 2016-06-04 09:25 | HHI.FF ---
Face to Face Verification Diagnosis: (1) HTN (hypertension) (2) UTI (urinary tract infection) (3) DM (diabetes mellitus) (4) Fracture of femur, distal, left, closed Physical Therapy Order: Evaluate and Treat, Improve ambulation, Strength and gait training Home Health Nursing Order: Medical education Signs/symptoms of disease process Diabetic education Medication education-adverse effect Nursing assessment with vital signs I have seen patient Lisa Juarez on 06/04/16. My clinical findings support the need for the requested home health care services because: Ltd mobility - disease progression I certify that my clinical findings support that this patient is homebound because: Unsteady gait/balance Unsafe to leave home unassisted Ld Gilbert MD Jun 04, 2016 09:25
--- NOTE | 2016-06-04 09:48 | HHI.PR ---
Subjective Remarks Seen for Seizure and UTI. She is doing okay asymptomatic without UTI symptoms. No recurrence of seizure. Tolerating Keppra. Discussed with RN and case management Objective Vitals Vital Signs Date Time Temp Pulse Resp B/P Pulse Ox O2 Delivery O2 Flow Rate FiO2 06/04/16 02:00 55 06/04/16 01:00 55 06/04/16 00:00 61 06/03/16 23:19 98.5 83 18 133/83 98 06/03/16 23:00 91 06/03/16 22:00 62 06/03/16 21:00 86 06/03/16 20:38 98.5 65 18 126/89 99 06/03/16 20:00 71 06/03/16 19:00 66 06/03/16 17:15 14 06/03/16 15:00 98.5 57 14 128/79 98 06/03/16 11:00 98.1 59 18 135/90 98 I/O 06/03/16 06/03/16 06/03/16 06/04/16 06/04/16 06/04/16 07:00 15:00 23:00 07:00 15:00 23:00 Intake Total 1040 ml 720 ml Output Total 500 ml Balance 540 ml 720 ml Intake Oral 240 ml 720 ml IV Total 800 ml Output Urine Total 500 ml # Voids 2 # Bowel Movements 0 1 Result Diagram: 06/03/16 0811 06/03/16 0811 Imaging Last Impressions Knee X-Ray 06/02/161846 Signed Impressions: Service Date/Time: Thursday, June 02, 2016 19:07 - CONCLUSION: 1. Avulsion fracture through medial aspect of medial femoral condyle. Moderate osteoarthritis. Elier Pretty MD Head CT 06/02/161846 Signed Impressions: Service Date/Time: Thursday, June 02, 2016 19:09 - CONCLUSION: 1. No acute findings. 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 Stable frontal encephalomalacia. Elier Pretty MD Objective Remarks GENERAL: Middle-aged female in no acute distress. HEENT: PERRLA, EOMI. No scleral icterus or conjunctival pallor. No lid lag or facial droop. CARDIOVASCULAR: Regular rate and rhythm. No obvious murmurs to auscultation. No chest tenderness to palpation. RESPIRATORY: No obvious rhonchi or wheezing. Clear to auscultation. Breath sounds equal bilaterally. GASTROINTESTINAL: Abdomen soft, non-tender, nondistended. BS normal. MUSCULOSKELETAL: Extremities without clubbing, cyanosis, or edema. No obvious deformities. Left knee tenderness palpation NEUROLOGICAL: Awake, alert and oriented x4. No focal neurologic deficits. Moving both upper and lower extremities spontaneously. Procedures none A/P Problem List: (1) Seizure ICD Code: R56.9 Status: Acute (2) Non-compliance ICD Code: Z91.19 Status: Acute (3) Fracture of femur, distal, left, closed ICD Code: S72.402A Status: Acute (4) UTI (urinary tract infection) ICD Code: N39.0 Status: Acute (5) HTN (hypertension) ICD Code: I10 Status: Chronic (6) DM (diabetes mellitus) ICD Code: E11.9 Status: Chronic Assessment and Plan 1. Seizure: h/o Seizure Disorder, off meds for approx 1yr of her own accord. Seizure activity DRUM TESTER, did not seek medical attention. CT Head w/ no acute findings, previous aneurysm clip on left, images reviewed by me. Seizure Precautions, Ativan prn. Neurology consulted by ER physician for further recommendations. F/u EEG negative for seizure. Started on Keppra which she is tolerating. Patient aware not to drive for 6 months, carry young kids, climb heights and swim alone 2. Non-Compliance: w/ seizure medication and antihypertensives, pt counselled. 3. UTI: U/a w/ UTI. Ct IV Rocephin and dc IVF after present bag. Switch to Ceftin. Follow urine culture 4. Left Knee Fx: s/p seizure w/ fall, X-ray w/ left knee avulsion fracture, Ortho recommends non-operative mgt with PT and brace 5. HTN: BP 170's on arrival, currently 150/88, HR 80. Will monitor. Dc IVF and start prn 6. DM: Sliding scale w/ Accu-Cheks. 7. DVT Prophylaxis: SCD/Teds. Discharge Planning Stable for discharge Problem Qualifiers (1) Fracture of femur, distal, left, closed: Qualified Code: S72.402A - Closed fracture of distal end of left femur, unspecified fracture morphology, initial encounter (2) HTN (hypertension): Qualified Code: I10 - Essential hypertension Ld Gilbert MD 22, 2017 09:48
[2016-06-04] MEDS ORDERED: CEFT250T8 PO (09:50)
[2016-06-04] MEDS: levETIRAcetam 500 MG TAB PO SCH (09:51)
[2016-06-04 10:00] VITALS: PULSE 62
[2016-06-04 11:00] VITALS: PULSE 69
--- NOTE | 2016-06-05 09:54 | MB ---
cc: JAMA SPEAR DATE OF CONSULTATION: 06/03/2016. REASON FOR CONSULTATION: Avulsion fracture of the left distal femur. CONSULTING PHYSICIAN: Dr. Stanley Epps. ADMITTING DIAGNOSIS: 1. Seizure. 2. Urinary tract infection. 3. Hypertension. 4. Diabetes. 5. Fracture of the left distal femur. HISTORY OF PRESENT ILLNESS Ms. Juarez is a 70-year-old female with past medical history of hypertension, diabetes, seizure disorder who yesterday was sitting on a chair next to a friend while playing cards. She began to lose consciousness and woke up on the floor with pain to her left knee. She was brought to the emergency room after seizure to be evaluated. She states that she was able to stand on the left lower extremity but did have discomfort. She was examined bedside on the cardiac floor with x-rays that confirm an avulsion fracture to the medial aspect of the distal femoral condyle. REVIEW OF SYSTEMS: She denies any fevers or chills, blurred vision, double vision, chest pains or palpitations, shortness of breath and cough, nausea, vomiting, diarrhea, constipation. She does complain of dysuria. No chronic rashes. Denies any heat or cold intolerances. No history of easy bruising or blood clots but does complain of varicose veins and no depression or anxiety. PAST MEDICAL HISTORY: 1. Hypertension. 2. Seizure disorder. 3. Diabetes. PAST SURGICAL HISTORY: 1. with evacuation. ALLERGIES: MORPHINE. FAMILY HISTORY: Noncontributory. SOCIAL HISTORY: Negative for all tobacco or drugs. PHYSICAL EXAMINATION: VITAL SIGNS: Temperature is 97.7 with a pulse of 61 with respiratory rate of 18, blood pressure is 146/92 with pulse oximetry of 100 on room air. GENERAL: Ms. Juarez is a 70-year-old female who is well-nourished and well-developed examined in bed in no acute distress. HEAD, EYES, EARS, NOSE, THROAT: Pupils are equal and reactive to light and accommodation. Extraocular movements are intact. NECK: Trachea is midline with no lymphadenopathy. CARDIOVASCULAR: Regular rate and rhythm. No obvious murmurs. RESPIRATORY: No obvious wheezing with no accessory muscle use. GASTROINTESTINAL: Abdomen soft and nondistended. MUSCULOSKELETAL: Examination of the bilateral upper extremities reveals no decreased range of motion in the shoulders, elbows or wrists. She has intact sensation over the radial, ulnar and median nerve distributions with good capillary refills. She is able to extend her fingers and make fists bilaterally. 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 Examination of the right lower extremity reveals no pain with hip range of motion. She has moderate crepitus through range of motion of the knee but the range of motion of the knee is from 0 degrees to 120 degrees. She has varicose veins over her tibia. The skin is intact. Distally she has intact sensation. Good capillary refill. Strong dorsiflexion and plantar flexion of the foot. Examination of the left lower extremity reveals no pain with hip range of motion. She has no tenderness over the lateral portion of the knee. She has tenderness over the medial distal femur. She has tenderness with valgus maneuver of the knee but is stable. She has no pain with varus maneuver. She has negative anterior and posterior draw signs of her knee. Distally she has intact sensation with good capillary refill. Range of motion of the knee is from 0 to 60 degrees. LABORATORY TESTS: She had a white blood cell count of 2.8, hemoglobin of 11.8 and hematocrit of 35.0. Platelet count is 127,000. Chemistry is all within normal limits except for AST, which is elevated at 45 and albumin is low at 2.9. X-RAY IMAGING: X-ray examination of the left knee reveals an avulsion fracture to the medial aspect of the medial femoral condyle. There is moderate osteoarthritis noted with joint space narrowing. ASSESSMENT: 1. Nondisplaced fracture of medial distal femoral condyle. 2. Seizure. 3. Urinary tract infection. 4. Hypertension. 5. Diabetes. PLAN AT THIS TIME: 1. She will be fitted for a hinged knee brace. 2. She may be weightbearing as tolerated on the left lower extremity using a walker in either her knee immobilizer or a hinged knee brace. 3. Physical therapy will work with her on a walker. 4. At this point, it is nonoperative treatment. 5. Would like to repeat x-rays of her left knee in two weeks in the office to evaluate alignment of the distal femoral condyle. 6. Once cleared with physical therapy, she may be discharged to home to follow up in the outpatient setting. The patient's x-rays and plan were reviewed with Dr. Spear and agreed with. Thank you for the consultation. Rajendra Overton PA-C dictating for Dr. Jama Spear. The history, physical exam, radiographs, assessment and plan were discussed and reviewed. I agree with the current plan of treatment.A mid-level provider in my office (nurse practitioner or physician admin assistant) may see this patient on follow-up visits and continue to implement the objectives of this plan including: Starting or adjusting medications, injections, cast application, orthotics, brace application, physical therapy, radiological studies (including x-ray, MRI, CT, ultrasound, bone scan), vascular studies, neurologic studies, specialist consultation, and proceeding with surgical management, as appropriate. MD DANE Burt/DEMAR /10:11 AM /9:53 AM MTDD
--- NOTE | 2016-06-05 23:01 | EKG ---
Date Performed: 06/02/2016 Time Performed: 16:10:27 PTAGE: 70 years EKG: Sinus rhythm LEFT ANTERIOR FASCICULAR BLOCK ABNORMAL ECG INTERPRETATION BASED ON A DEFAULT AGE OF 40 YEARS Compar ed to the PREVIOUS TRACING , no significant change DOCTOR: Joshua Gamez Interpretating Date/Time 06/05/2016 23:01:02
== END 2016-06-04 13:07 | disposition home or self-care (01) ==
LOC: NEPA 15:17 → NEDA 21:33 → NEDH 06-03 01:16 → HCIN 06-03 04:53
PROVIDERS: ADMIT Internal Medicine; ATTEND Internal Medicine
DX: S72.402A Unspecified fracture of lower end of left femur, initial encounter for closed fracture (principal); G40.909 Epilepsy, unspecified, not intractable, without status epilepticus; I10 Essential (primary) hypertension; N39.0 Urinary tract infection, site not specified; B96.1 Klebsiella pneumoniae [K. pneumoniae] as the cause of diseases classified elsewhere; E11.9 Type 2 diabetes mellitus without complications; J45.909 Unspecified asthma, uncomplicated; M17.0 Bilateral primary osteoarthritis of knee; G93.89 Other specified disorders of brain; Z79.84 Long term (current) use of oral hypoglycemic drugs; Z91.19 Patient's noncompliance with other medical treatment and regimen; W07.XXXA Fall from chair, initial encounter
CPT/HCPCS: 70450; 73560; 80053; 81001; 82550; 82948; 85025; 87077; 87086; 87186; 93005; 95819; 97110; 97116; 97163; 99285; G0378; G8987; G8988; J0696; J7030; L1810; L1830

== ENCOUNTER 2017-08-12 20:37 | Emergency (ER) | payer MEDICARE, OTHER ==
[~2017-08-12] VITALS: Ht 152.4 cm; Wt 88.0 kg
[~2017-08-12 20:37] MED LIST changes: +CEFT250T8 PO; +HYDR-3516 PO; +LEVE500 PO; +ROBA750T PO; -ROBA750T3 PO; +ROLLER WALKER1 MI1
[2017-08-12 21:13] VITALS: BP 152/72; PULSE 71; RESP 20; TEMP 98.4; O2SAT 96
--- NOTE | 2017-08-12 22:23 | PD ---
HPI Chief Complaint: Injury Time Seen by Provider: 22:14 Travel History International Travel<30 days: No Contact w/Intl Traveler<30days: No Traveled to known affect area: No History of Present Illness HPI Patient is a 71-year-old female presenting to the emergency department crimping her rings on her left third finger. Injury occurred approximately 4 hours ago. Patient states her pain is a 7 out of 10 and states is aching and throbbing. Symptom onset was sudden, there are no alleviating factors. She has no other complaints or injuries reported at this time. [facility] Past Medical History Anemia: Yes Asthma: Yes Cardiovascular Problems: Yes Diabetes: Yes Endocrine: Yes Hypertension: Yes Implanted Vascular Access Dvce: Yes Musculoskeletal: Yes (femur fracture from fall ) Neurologic: Yes Respiratory: Yes Seizures: Yes Tetanus Vaccination: < 5 Years Influenza Vaccination: No ?: Not LMP: menapause Menopausal: Yes Past Surgical History Body Medical Devices: clips in brain Neurologic Surgery: Yes (SUBARACHNOID HEMORRHAGE, ) Other Surgery: Yes Social History Alcohol Use: No Tobacco Use: Yes Substance Use: No Allergies-Medications (Allergen,Severity, Reaction): Coded Allergies: morphine (Unverified Allergy, Severe, TROUBLE BREATHING, 08/12/17) Reported Meds & Prescriptions Reported Meds & Active Scripts Active Keppra (Levetiracetam) 500 Mg Tab 500 Mg PO Q12HR Roller Walker (Misc. Devices) 1 Mis Mis 1 Ea .ROUTE NOW Hydrocodone-Acetaminophen 5-325 mg Tab 1 Tab PO Q6HR PRN Reported Robaxin (Methocarbamol) 750 Mg Tab 750 Mg PO Q4H Review of Systems Except as stated in HPI: all other systems reviewed are Neg Musculoskeletal: Positive: Edema, Pain Physical Exam Narrative GENERAL: Well-developed, well-nourished, well-appearing -[place] female. Presenting in no acute distress. SKIN: Warm and dry. HEAD: Normocephalic. EYES: No scleral icterus. No injection or drainage. NECK: Supple, trachea midline. No JVD or lymphadenopathy. CARDIOVASCULAR: Regular rate and rhythm without murmurs, gallops, or rubs. RESPIRATORY: Breath sounds equal bilaterally. No accessory muscle use. GASTROINTESTINAL: Abdomen soft, non-tender, nondistended. MUSCULOSKELETAL: No cyanosis, mild edema to the left third finger, there are 2 rings crimped onto the finger. Brisk less than 3 second capillary refill. BACK: Nontender without obvious deformity. No CVA tenderness. Data Data Last Documented VS Vital Signs Date Time Temp Pulse Resp B/P (MAP) Pulse Ox O2 Delivery O2 Flow Rate FiO2 08/12/17 21:13 98.4 71 20 152/72 (98) 96 Orders Orders Hand, Limited (2vws) (08/12/17 ) MDM Medical Decision Making Medical Screen Exam Complete: Yes Emergency Medical Condition: Yes Interpretation(s) Vital Signs Date Time Temp Pulse Resp B/P (MAP) Pulse Ox O2 Delivery O2 Flow Rate FiO2 08/12/17 21:13 98.4 71 20 152/72 (98) 96 Differential Diagnosis Fracture versus contusion versus Narrative Course Patient presented with ring stuck on her left third finger after getting her hand caught in the door. Rings were removed with claudia the ER geospatial technician. X -ray ordered and pending. X-rays negative for acute fracture. Patient is encouraged to take ibuprofen or acetaminophen as needed and as directed for pain. She is encouraged to return to emergency department for any new worsening symptoms. Patient stable for discharge. Diagnosis Primary Impression: Contusion, finger Qualified Codes: S60.032A - Contusion of left middle finger without damage to nail, initial encounter Referrals: Primary Care Physician Patient Instructions: Contusion in Adults (ED), General Instructions Additional Instructions: Follow-up with your primary doctor Take Tylenol or ibuprofen as needed and as directed for pain Apply cool compress to affected area Return to emergency department for any new or worsening symptoms Med/Other Pt SpecificInfo: No Change to Meds Disposition: 01 DISCHARGE HOME Condition: Stable Annelise Gomes Aug 12, 2017 22:23
--- NOTE | 2017-08-12 22:33 | RADRPT ---
EXAM DATE/TIME: 08/12/2017 22:27 [place] COMPARISON: No previous studies available for comparison. INDICATIONS : Left hand proximal 3rd finger pain, ring stuck on finger MEDICAL HISTORY : Diabetes mellitus type 2. subarachnoid hemorrhage SURGICAL HISTORY : None. ENCOUNTER: Initial ACUITY: 1 day PAIN SCORE: 1/10 LOCATION: Left Hand FINDINGS: Two view examination of the left hand demonstrates no soft tissue swelling, dislocation, or fracture. The joint spaces are maintained. Bony mineralization is normal. CONCLUSION: No acute disease. Jeffery Lopez MD on August 12, 2017 at 22:31 Board Certified Radiologist. This report was verified electronically.
== END 2017-08-12 23:01 | disposition home or self-care (01) ==
LOC: NEPD 20:37
DX: S60.032A Contusion of left middle finger without damage to nail, initial encounter (principal); W23.0XXA Caught, crushed, jammed, or pinched between moving objects, initial encounter; W49.04XA Ring or other jewelry causing external constriction, initial encounter; J45.909 Unspecified asthma, uncomplicated; E11.9 Type 2 diabetes mellitus without complications; I10 Essential (primary) hypertension; Z72.0 Tobacco use
CPT/HCPCS: 73120; 99283

== ENCOUNTER 2017-09-24 21:10 | Observation (INO) | payer MEDICARE ==
[~2017-09-24] VITALS: Ht 165.1 cm; Wt 65.0 kg
[~2017-09-24 21:10] MED LIST changes: -CEFT250T8 PO
[2017-09-24 21:18] VITALS: BP 138/82; PULSE 89; RESP 18; TEMP 98.8; O2SAT 97
[2017-09-24 21:57] VITALS: O2SAT 98
[2017-09-24] MEDS ORDERED: SODIUM CHLORIDE 0.9% FLUSH 10 ML FLUSH IV FLUSH PRN (22:00)
[2017-09-24] MEDS ORDERED: SODIUM CHLOR 0.9% 1000 ML INJ 1,000 ML IV ONE (22:00)
--- NOTE | 2017-09-24 22:12 | PD ---
HPI Chief Complaint: Altered Mental Status Time Seen by Provider: 21:39 Travel History International Travel<30 days: No Contact w/Intl Traveler<30days: No Traveled to known affect area: No History of Present Illness HPI 71-year-old female presents to the emergency department via EMS for evaluation of altered mental status. According to EMS, she has been altered for 1 month. However, I spoke to the Casandra ([phone]) and she states that for the past 2 weeks she has been going in and out of the bathroom and stating that she is seeing people and that people are recording her. She will not bathe and has not eaten in 2 days. They state that she has a significant history of a subarachnoid hemorrhage 3-4 years ago. She is refusing to go to her doctor. The patient is a poor historian. She is alert and oriented to person and place only. She denies any headaches. No chest pain shortness breath. No abdominal pain. No nausea, vomiting, diarrhea. Patient has no complaints on my exam. She does admit to having hallucinations and states "that is why they sent me here". No exacerbating or alleviating factors. Moderate severity. PFSH Past Medical History Anemia: Yes Arthritis: No Asthma: Yes Blood Disorders: No Heart Rhythm Problems: No Cancer: No Cardiovascular Problems: Yes High Cholesterol: No Chest Pain: No Congestive Heart Failure: No COPD: No Cerebrovascular Accident: No Diabetes: Yes Patient Takes Glucophage: No Diminished Hearing: No Endocrine: Yes Gastrointestinal Disorders: No Genitourinary: No Headaches: No Hypertension: Yes Implanted Vascular Access Dvce: Yes Musculoskeletal: Yes (femur fracture from fall ) Neurologic: Yes Psychiatric: No Reproductive: No Respiratory: Yes Migraines: No Myocardial Infarction: No Seizures: Yes Sleep Apnea: No Menopausal: Yes Past Surgical History Abdominal Surgery: No Body Medical Devices: clips in brain Cardiac Surgery: No Ear Surgery: No Endocrine Surgery: No Eye Surgery: No Genitourinary Surgery: No Gynecologic Surgery: No Neurologic Surgery: Yes (SUBARACHNOID HEMORRHAGE, ) Oral Surgery: No Thoracic Surgery: No Other Surgery: Yes Social History Alcohol Use: No Tobacco Use: Yes Substance Use: No Allergies-Medications (Allergen,Severity, Reaction): Coded Allergies: morphine (Unverified Allergy, Severe, TROUBLE BREATHING, 09/24/17) Reported Meds & Prescriptions Reported Meds & Active Scripts Active Keppra (Levetiracetam) 500 Mg Tab 500 Mg PO Q12HR Roller Walker (Misc. Devices) 1 Mis Mis 1 Ea .ROUTE NOW Hydrocodone-Acetaminophen 5-325 mg Tab 1 Tab PO Q6HR PRN Reported Robaxin (Methocarbamol) 750 Mg Tab 750 Mg PO Q4H Review of Systems Except as stated in HPI: all other systems reviewed are Neg Physical Exam Exam Limitations: Altered Mental Status Narrative GENERAL: Well-nourished, well-developed female patient, afebrile. Patient is alert and oriented to person and place only. SKIN: Focused skin assessment warm/dry. HEAD: Normocephalic. Atraumatic. ENT: Mucosa pink and moist. No erythema or exudates. No uvular edema. No uvular , palatal, or tonsillar deviation. Airway patent. Nasal turbinates appear normal without nasal blood, purulent drainage or septal hematoma. Bilateral tympanic membranes clear without erythema or perforation. EYES: No scleral icterus. No injection or drainage. NECK: Supple, trachea midline. No JVD or lymphadenopathy. CARDIOVASCULAR: Regular rate and rhythm without murmurs, gallops, or rubs. Bilateral radial and pedal pulses 2+ RESPIRATORY: Breath sounds equal bilaterally. No accessory muscle use. Lung sounds are clear to auscultation. GASTROINTESTINAL: Abdomen soft, non-tender, nondistended. MUSCULOSKELETAL: No cyanosis, or edema. Bilateral upper and lower extremity strength 5/5. All extremities are neurovascularly intact. BACK: Nontender without obvious deformity. No CVA tenderness. Data Data Last Documented VS Vital Signs Date Time Temp Pulse Resp B/P (MAP) Pulse Ox O2 Delivery O2 Flow Rate FiO2 09/24/17 21:57 98 Room Air 09/24/17 21:18 98.8 89 18 138/82 (100) Orders Orders Electrocardiogram (09/24/17 21:53) Ammonia (09/24/17 21:53) Complete Blood Count With Diff (09/24/17 21:53) Comprehensive Metabolic Panel (09/24/17 21:53) Creatine Kinase (Cpk) (09/24/17 21:53) Prothrombin Time / Inr (Pt) (09/24/17 21:53) Act Partial Throm Time (Ptt) (09/24/17 21:53) Troponin I (09/24/17 21:53) Urinalysis - C+S If Indicated (09/24/17 21:53) Chest, Single Ap (09/24/17 21:53) Ct Brain W/O Iv Contrast(Rout) (09/24/17 21:53) Blood Glucose (09/24/17 21:53) Ecg Monitoring (09/24/17 21:53) Iv Access Insert/Monitor (09/24/17 21:53) Oximetry (09/24/17 21:53) Sodium Chloride 0.9% Flush (Ns Flush) (09/24/17 22:00) Sodium Chlor 0.9% 1000 Ml Inj (Ns 1000 M (09/24/17 22:00) Magnesium (Mg) (09/24/17 21:53) Labs Laboratory Tests Test 09/24/17 22:06 White Blood Count 3.1 TH/MM3 Red Blood Count 4.72 MIL/MM3 Hemoglobin 13.3 GM/DL Hematocrit 40.6 % Mean Corpuscular Volume 86.1 FL Mean Corpuscular Hemoglobin 28.2 PG Mean Corpuscular Hemoglobin Concent 32.7 % Red Cell Distribution Width 14.4 % Platelet Count 107 TH/MM3 Mean Platelet Volume 9.0 FL Neutrophils (%) (Auto) 71.3 % Lymphocytes (%) (Auto) 18.0 % Monocytes (%) (Auto) 9.9 % Eosinophils (%) (Auto) 0.4 % Basophils (%) (Auto) 0.4 % Neutrophils # (Auto) 2.2 TH/MM3 Lymphocytes # (Auto) 0.6 TH/MM3 Monocytes # (Auto) 0.3 TH/MM3 Eosinophils # (Auto) 0.0 TH/MM3 Basophils # (Auto) 0.0 TH/MM3 CBC Comment DIFF FINAL Differential Comment Prothrombin Time 12.6 SEC Prothromb Time International Ratio 1.2 RATIO Activated Partial Thromboplast Time 22.3 SEC [facility] Medical Decision Making Medical Screen Exam Complete: Yes Emergency Medical Condition: Yes Medical Record Reviewed: Yes Interpretation(s) chest x-ray - CONCLUSION: No acute disease. ct brain - CONCLUSION: No acute intracranial findings Differential Diagnosis Intracranial abnormality versus electrolyte abnormality versus UTI versus pneumonia versus sepsis Narrative Course 71-year-old female presents to the emergency department for altered mental status. EKG, CBC, CMP, ammonia, CK, troponin, magnesium, PTT, PT/INR, UA, chest x-ray, CT the brain are ordered and pending. Patient is given normal saline 1 L IV bolus. EKG shows SR, HR 73, no acute ST changes. CBC shows leukopenia of 3.1. CMP is pending. Ammonia is pending. CK, Troponin, Magnesium are pending. Coags show no acute abnormality. UA is pending. Chest x-ray shows no acute disease. CT of the brain shows no acute intracranial findings. My attending physician, Dr. Pineda, will follow up on labs and disposition patient. Caron Noriega September 24, 2017 22:12
--- NOTE | 2017-09-24 22:20 | RADRPT ---
EXAM DATE/TIME: 09/24/2017 22:01 [facility] COMPARISON: No previous studies available for comparison. INDICATIONS : Altered mental status. Shortness of breath. MEDICAL HISTORY : Diabetes mellitus type 2. subarachnoid hemorrhage SURGICAL HISTORY : None. ENCOUNTER: Initial ACUITY: 1 day PAIN SCORE: 0/10 LOCATION: Bilateral chest FINDINGS: A single view of the chest demonstrates the lungs to be symmetrically aerated without evidence of mas s, infiltrate or effusion. The cardiomediastinal contours are unremarkable. Osseous structures are intact. CONCLUSION: No acute disease. Jono Joiner MD on September 24, 2017 at 22:17 Board Certified Radiologist. This report was verified electronically.
[2017-09-24 22:29] LABS: AUTOMATED NEUTROPHIL # 2.2 TH/MM3 (1.8-7.7); BASOPHIL % 0.4 % (0.0-2.0); EOSINOPHIL % 0.4 % (0.0-4.0); HEMATOCRIT 40.6 % (35.0-46.0); HEMOGLOBIN 13.3 GM/DL (11.6-15.3); LYMPHOCYTE # 0.6 TH/MM3 (1.0-4.8); MEAN CELL VOLUME 86.1 FL (80.0-100.0); MEAN CORPUSCULAR HEMOGLOBIN 28.2 PG (27.0-34.0); MEAN CORPUSCULAR HGB CONC 32.7 % (32.0-36.0); MONO % 9.9 % (0.0-8.0); MONOCYTE # 0.3 TH/MM3 (0-0.9); NEUT % 71.3 % (16.0-70.0); PLATELET COUNT 107 TH/MM3 (150-450); RED BLOOD COUNT 4.72 MIL/MM3 (4.00-5.30); RED CELL DISTRIBUTION WIDTH 14.4 % (11.6-17.2); WHITE BLOOD COUNT 3.1 TH/MM3 (4.0-11.0)
--- NOTE | 2017-09-24 22:35 | RADRPT ---
EXAM DATE/TIME: 09/24/2017 22:18 [facility] COMPARISON: CT BRAIN W/O CONTRAST, June 02, 2016, 19:09. INDICATIONS : Altered mental status. RADIATION DOSE: 56.35 CTDIvol (mGy) MEDICAL HISTORY : Cardiovascular disease. Seizures. Aneurysm, intracranial. SURGICAL HISTORY : None. ENCOUNTER: Initial ACUITY: 1 day PAIN SCALE: 0/10 LOCATION: cranial TECHNIQUE: Multiple contiguous axial images were obtained of the head. Using automated exposure control and adj ustment of the mA and/or kV according to patient size, radiation dose was kept as low as reasonably a chievable to obtain optimal diagnostic quality images. DICOM format image data is available electro nically for review and comparison. FINDINGS: Previous coil embolization of small aneurysm at the anterior left skull base. 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 Patchy diminished attenuation in periventricular white matter which also appears stable. No evidence of hemorrhage or mass. Nothing to suggest acute infarct ion. Extracranial structures are stable and benign. CONCLUSION: No acute intracranial findings Jono Joiner MD on September 24, 2017 at 22:29 Board Certified Radiologist. This report was verified electronically.
[2017-09-24 22:39] LABS: INTERNATIONAL NORMALIZED RATIO 1.2 RATIO; PROTHROMBIN TIME - PATIENT 12.6 SEC (9.8-11.6)
--- NOTE | 2017-09-24 23:09 | PD ---
Physical Exam Date Seen by Provider: September 24, 2017 Time Seen by Provider: 23:07 Narrative accepted in transfer of care GENERAL: Well-developed female in no acute respiratory distress; gcs 14, confused SKIN: Warm and dry. HEAD: Normocephalic. EYES: No scleral icterus. No injection or drainage. NECK: Supple, trachea midline. No JVD or lymphadenopathy. CARDIOVASCULAR: Regular rate and rhythm without murmurs, gallops, or rubs. RESPIRATORY: Breath sounds equal bilaterally. No accessory muscle use. GASTROINTESTINAL: Abdomen soft, non-tender, nondistended. MUSCULOSKELETAL: No cyanosis, or edema. BACK: Nontender without obvious deformity. No CVA tenderness. Data Data Last Documented VS Vital Signs Date Time Temp Pulse Resp B/P (MAP) Pulse Ox O2 Delivery O2 Flow Rate FiO2 09/24/17 21:57 98 Room Air 09/24/17 21:18 98.8 89 18 138/82 (100) Orders Orders Electrocardiogram (09/24/17 21:53) Ammonia (09/24/17 21:53) Complete Blood Count With Diff (09/24/17 21:53) Comprehensive Metabolic Panel (09/24/17 21:53) Creatine Kinase (Cpk) (09/24/17 21:53) Prothrombin Time / Inr (Pt) (09/24/17 21:53) Act Partial Throm Time (Ptt) (09/24/17 21:53) Troponin I (09/24/17 21:53) Urinalysis - C+S If Indicated (09/24/17 21:53) Chest, Single Ap (09/24/17 21:53) Ct Brain W/O Iv Contrast(Rout) (09/24/17 21:53) Blood Glucose (09/24/17 21:53) Ecg Monitoring (09/24/17 21:53) Iv Access Insert/Monitor (09/24/17 21:53) Oximetry (09/24/17 21:53) Sodium Chloride 0.9% Flush (Ns Flush) (09/24/17 22:00) Sodium Chlor 0.9% 1000 Ml Inj (Ns 1000 M (09/24/17 22:00) Magnesium (Mg) (09/24/17 21:53) Urine Culture (09/25/17 00:05) Ceftriaxone Inj (Rocephin Inj) (09/25/17 00:45) Admit Order (Ed Use Only) (09/25/17 ) Food Sanitarian / Telemetry [id number] (09/25/17 00:59) Diet Heart Healthy (09/25/17 Breakfast) Activity Bed Rest (09/25/17 00:59) Notify Dr: Other (09/25/17 00:59) Labs Laboratory Tests Test 09/24/17 22:06 09/25/17 00:05 White Blood Count 3.1 TH/MM3 Red Blood Count 4.72 MIL/MM3 Hemoglobin 13.3 GM/DL Hematocrit 40.6 % Mean Corpuscular Volume 86.1 FL Mean Corpuscular Hemoglobin 28.2 PG Mean Corpuscular Hemoglobin Concent 32.7 % Red Cell Distribution Width 14.4 % Platelet Count 107 TH/MM3 Mean Platelet Volume 9.0 FL Neutrophils (%) (Auto) 71.3 % Lymphocytes (%) (Auto) 18.0 % Monocytes (%) (Auto) 9.9 % Eosinophils (%) (Auto) 0.4 % Basophils (%) (Auto) 0.4 % Neutrophils # (Auto) 2.2 TH/MM3 Lymphocytes # (Auto) 0.6 TH/MM3 Monocytes # (Auto) 0.3 TH/MM3 Eosinophils # (Auto) 0.0 TH/MM3 Basophils # (Auto) 0.0 TH/MM3 CBC Comment DIFF FINAL Differential Comment Prothrombin Time 12.6 SEC Prothromb Time International Ratio 1.2 RATIO Activated Partial Thromboplast Time 22.3 SEC Blood Urea Nitrogen 12 MG/DL Creatinine 0.93 MG/DL Random Glucose 88 MG/DL Total Protein 8.2 GM/DL Albumin 3.3 GM/DL Calcium Level 9.0 MG/DL Magnesium Level 1.8 MG/DL Alkaline Phosphatase 56 U/L Aspartate Amino Transf (AST/SGOT) 51 U/L Alanine Aminotransferase (ALT/SGPT) 25 U/L Total Bilirubin 1.0 MG/DL Sodium Level 142 MEQ/L Potassium Level 4.4 MEQ/L Chloride Level 101 MEQ/L Carbon Dioxide Level 29.7 MEQ/L Anion Gap 11 MEQ/L Estimat Glomerular Filtration Rate 72 ML/MIN Ammonia 18 MCMOL/L Total Creatine Kinase 74 U/L Troponin I LESS THAN 0.02 NG/ML Urine Color YELLOW Urine Turbidity CLEAR Urine pH 6.5 Urine Specific Odell 1.013 Urine Protein NEG mg/dL Urine Glucose (UA) NEG mg/dL Urine Ketones TRACE mg/dL Urine Occult Blood SMALL Urine Nitrite NEG Urine Bilirubin NEG Urine Urobilinogen 2.0 MG/DL Urine Leukocyte Esterase MOD Urine RBC 1 /hpf Urine WBC 11 /hpf Urine Squamous Epithelial Cells 2 /hpf Urine Bacteria MANY /hpf Urine Hyaline Casts 2 /lpf Urine Granular Casts 2 /lpf Urine Mucus FEW /lpf Microscopic Urinalysis Comment CATH-CULTURE IND MDM Medical Record Reviewed: Yes Supervised Visit with SHAKIR: Yes Interpretation(s) EKG normal sinus rhythm rate 73 left anterior fascicular block no acute ST elevation no acute injury pattern noted Last Impressions Head CT 09/24/172152 Signed Impressions: Service Date/Time: Sunday, September 24, 2017 22:18 - CONCLUSION: No acute intracranial findings Jono Joiner MD Chest X-Ray 09/24/172152 Signed Impressions: Service Date/Time: Sunday, September 24, 2017 22:01 - CONCLUSION: No acute disease. Jono Joiner MD CBC & BMP Diagram 09/24/17 22:06 Total Protein 8.2, Albumin 3.3 L, Calcium Level 9.0, Magnesium Level 1.8, Alkaline Phosphatase 56, Aspartate Amino Transf (AST/SGOT) 51 H, Alanine Aminotransferase (ALT/SGPT) 25, Total Bilirubin 1.0 Vital Signs Date Time Temp Pulse Resp B/P (MAP) Pulse Ox O2 Delivery O2 Flow Rate FiO2 09/24/17 21:57 98 Room Air 09/24/17 21:18 98.8 89 18 138/82 (100) 97 Differential Diagnosis ams, schizophrenia, ICH, cva, hygroma, sepsis, seizure Narrative Course Accepted in transfer from care accepted in transfer of care from Caron Noriega PA-C for follow-up of pending labs and patient disposition with plan for observation/inpatient admission CT brain noncontrast reveals no acute abnormality chest x-ray reveals no lobar infiltrate EKG shows no acute ST elevation injury pattern Urinalysis markedly abnormal with many bacteria and white blood cells culture indicated Patient given first dose of IV antibiotic Rocephin 1 g Patient's case discussed with on-call medicine for observation admission Physician Communication Physician Communication discussed with Dr Lincoln Diagnosis Primary Impression: Altered mental status, unspecified Additional Impression: UTI (urinary tract infection) Admitting Information Admitting Physician Requests: Observation Stephanie Pineda MD September 24, 2017 23:09
[2017-09-24 23:26] LABS: ALBUMIN 3.3 GM/DL (3.4-5.0); ALKALINE PHOSPHATASE 56 U/L (45-117); ALT (GPT) 25 U/L (10-53); AST (GOT) 51 U/L (15-37); BICARBONATE 29.7 MEQ/L (21.0-32.0); BLOOD UREA NITROGEN 12 MG/DL (7-18); CHLORIDE 101 MEQ/L (98-107); CREATININE 0.93 MG/DL (0.50-1.00); GLOMERULAR FILTRATION RATE 72 ML/MIN (>89); GLUCOSE,RANDOM 88 MG/DL (74-106); MAGNESIUM 1.8 MG/DL (1.5-2.5); SODIUM (NA) 142 MEQ/L (136-145); TOTAL PROTEIN 8.2 GM/DL (6.4-8.2); TROPONIN I LESS THAN 0.02 NG/ML (0.02-0.05)
[2017-09-25 00:20] LABS: BACTERIA, URINE MANY /hpf; BILIRUBIN, URINE NEG (NEG); BLOOD, URINE SMALL (NEG); GLUCOSE,URINE NEG (NEG); HYALINE CAST, URINE 2 /lpf (RARE); KETONE, URINE TRACE mg/dL (NEG); MUCUS URINE FEW /lpf (OCC); NITRITE,URINE NEG (NEG); PH, URINE 6.5 (5.0-8.5); SQUAMOUS EPITHELIAL CELL URINE 2 /hpf (0-5); URINE COLOR YELLOW (YELLW/STRAW); URINE LEUKOCYTE ESTERASE MOD (NEG)
[2017-09-25] MEDS ORDERED: cefTRIAXone INJ 1,000 MG in SODIUM CHLORIDE 0.9% INJ 100 ML IV ONE (00:45)
[2017-09-25 01:03] VITALS: BP 146/79; PULSE 69; RESP 18; O2SAT 99
[2017-09-25] MEDS ORDERED: BISACODYL 10 MG SUPP RECTAL PRN (01:45)
[2017-09-25] MEDS ORDERED: ONDANSETRON ODT 4 MG TAB PO PRN (01:45)
[2017-09-25] MEDS ORDERED: SODIUM CHLORIDE 0.9% FLUSH 10 ML FLUSH IV FLUSH PRN (01:45)
[2017-09-25] MEDS ORDERED: ACETAMINOPHEN 325 MG TAB PO PRN (01:45)
[2017-09-25] MEDS ORDERED: MAGNESIUM HYDROXIDE SUSP 30 ML CUP PO PRN (01:45)
[2017-09-25] MEDS ORDERED: NALOXONE HCL 0.4 MG/ML AMP IV PUSH PRN (01:45)
[2017-09-25] MEDS ORDERED: LACTULOSE SYRUP 20 GM/30 ML CUP PO PRN (01:45)
[2017-09-25] MEDS ORDERED: SENNOSIDES 8.6 MG TAB PO PRN (01:45)
[2017-09-25 01:53] VITALS: BP 159/85; PULSE 69; RESP 16; TEMP 98.4; O2SAT 98
[2017-09-25] MEDS ORDERED: HEPARIN SODIUM - SQ 10,000 UNITS/ML VIAL SQ SCH (06:00)
[2017-09-25 07:24] VITALS: BP 158/81; PULSE 64; RESP 19; TEMP 98.2; O2SAT 98
[2017-09-25] MEDS ORDERED: GLUCAGON 1 MG/ML VIAL OTHER PRN (08:00)
[2017-09-25] MEDS ORDERED: DEXTROSE 50% IN WATER 50 ML VIAL(D50) IV PUSH PRN (08:00)
[2017-09-25] MEDS: INSULIN ASPART SUPPLEMENTAL SCALE SQ SCH ×2 (08:00→12:00)
--- NOTE | 2017-09-25 08:04 | HHI.HP ---
[facility] Primary [facility] Physician Unknown Admission Diagnosis AMS; UTI Diagnoses: (1) Acute metabolic encephalopathy (2) UTI (urinary tract infection) (3) DM (diabetes mellitus) (4) HTN (hypertension) (5) Seizure Chief Complaint: Altered mental status change Travel History International Travel<30 Days: No Contact w/Intl Traveler <30 Da: No Traveled to Known Affected Are: No History of Present Illness 71-year-old female with history of seizure disorder, hypertension was brought by EMS for evaluation of altered mental status change. Although patient during my exam was alert and only oriented to self however she was unable to provide any history. Therefore history is obtained from chart review below: "71-year-old female presents to the emergency department via EMS for evaluation of altered mental status. According to EMS, she has been altered for 1 month. However, I spoke to the Acsandra ([phone]) and she states that for the past 2 weeks she has been going in and out of the bathroom and stating that she is seeing people and that people are recording her. She will not bathe and has not eaten in 2 days. They state that she has a significant history of a subarachnoid hemorrhage 3-4 years ago. She is refusing to go to her doctor. The patient is a poor historian. She is alert and oriented to person and place only. She denies any headaches. No chest pain shortness breath. No abdominal pain. No nausea, vomiting, diarrhea. Patient has no complaints on my exam. She does admit to having hallucinations and states "that is why they sent me here". No exacerbating or alleviating factors. Moderate severity." On admissions vitals temperature 98.8, pulse 89, respiratory rate 18 blood pressure 138/82 patient satting 97% on room air. Chest x-ray was obtained without any cardiopulmonary disease and head CT unremarkable. Abnormal lab included WBC 2.1 and a platelet of 107 which appears to be chronic for patient. She has had abnormal UA. Patient has a known history of coagulopathy. Review of Systems Except as stated in HPI: all other systems reviewed are Neg Past Family Social History Past Medical History HTN, SAH 2009, diabetes type 2, seizure Disorder Past Surgical History SAH with evacuation Reported Medications Keppra (Levetiracetam) 500 Mg Tab 500 Mg PO Q12HR Roller Walker (Misc. Devices) 1 Mis Mis 1 Ea .ROUTE NOW Hydrocodone-Acetaminophen 5-325 mg Tab 1 Tab PO Q6HR PRN Robaxin (Methocarbamol) 750 Mg Tab 750 Mg PO Q4H Allergies: Coded Allergies: morphine (Unverified Allergy, Severe, TROUBLE BREATHING, 09/24/17) Family History No h/o DM or CAD Social History Negative for all, tobacco or drugs. Physical Exam Vital Signs Vital Signs Date Time Temp Pulse Resp B/P (MAP) Pulse Ox O2 Delivery O2 Flow Rate FiO2 09/25/17 07:24 98.2 64 19 158/81 (106) 98 09/25/17 01:53 98.4 69 16 159/85 (109) 98 09/25/17 01:40 09/25/17 01:03 69 18 146/79 (101) 99 09/24/17 21:57 98 Room Air 09/24/17 21:18 98.8 89 18 138/82 (100) 97 Physical Exam GENERAL: This is a well-nourished, well-developed patient, in no apparent distress. SKIN: No rashes, ecchymoses or lesions. Cool and dry. HEAD: Atraumatic. Normocephalic. No temporal or scalp tenderness. EYES: Pupils equal round and reactive. Extraocular motions intact. No scleral icterus. No injection or drainage. ENT: Nose without bleeding, purulent drainage or septal hematoma. Throat without erythema, tonsillar hypertrophy or exudate. Uvula midline. Airway patent. NECK: Trachea midline. No JVD or lymphadenopathy. Supple, nontender, no meningeal signs. CARDIOVASCULAR: Regular rate and rhythm without murmurs, gallops, or rubs. RESPIRATORY: Clear to auscultation. Breath sounds equal bilaterally. No wheezes , rales, or rhonchi. GASTROINTESTINAL: Abdomen soft, non-tender, nondistended. No hepato-splenomegaly , or palpable masses. No guarding. MUSCULOSKELETAL: Extremities without clubbing, cyanosis, or edema. No joint tenderness, effusion, or edema noted. No calf tenderness. Negative Homans sign bilaterally. NEUROLOGICAL: Awake and alert. Cranial nerves II through XII intact. Motor and sensory grossly within normal limits. Five out of 5 muscle strength in all muscle groups. Normal speech. Laboratory Laboratory Tests Test 09/24/17 22:06 09/25/17 00:05 White Blood Count 3.1 Red Blood Count 4.72 Hemoglobin 13.3 Hematocrit 40.6 Mean Corpuscular Volume 86.1 Mean Corpuscular Hemoglobin 28.2 Mean Corpuscular Hemoglobin Concent 32.7 Red Cell Distribution Width 14.4 Platelet Count 107 Mean Platelet Volume 9.0 Neutrophils (%) (Auto) 71.3 Lymphocytes (%) (Auto) 18.0 Monocytes (%) (Auto) 9.9 Eosinophils (%) (Auto) 0.4 Basophils (%) (Auto) 0.4 Neutrophils # (Auto) 2.2 Lymphocytes # (Auto) 0.6 Monocytes # (Auto) 0.3 Eosinophils # (Auto) 0.0 Basophils # (Auto) 0.0 CBC Comment DIFF FINAL Differential Comment Prothrombin Time 12.6 Prothromb Time International Ratio 1.2 Activated Partial Thromboplast Time 22.3 Blood Urea Nitrogen 12 Creatinine 0.93 Random Glucose 88 Total Protein 8.2 Albumin 3.3 Calcium Level 9.0 Magnesium Level 1.8 Alkaline Phosphatase 56 Aspartate Amino Transf (AST/SGOT) 51 Alanine Aminotransferase (ALT/SGPT) 25 Total Bilirubin 1.0 Sodium Level 142 Potassium Level 4.4 Chloride Level 101 Carbon Dioxide Level 29.7 Anion Gap 11 Estimat Glomerular Filtration Rate 72 Ammonia 18 Total Creatine Kinase 74 Troponin I LESS THAN 0.02 Urine Color YELLOW Urine Turbidity CLEAR Urine pH 6.5 Urine Specific [place] 1.013 Urine Protein NEG Urine Glucose (UA) NEG Urine Ketones TRACE Urine Occult Blood SMALL Urine Nitrite NEG Urine Bilirubin NEG Urine Urobilinogen 2.0 Urine Leukocyte Esterase MOD Urine RBC 1 Urine WBC 11 Urine Squamous Epithelial Cells 2 Urine Bacteria MANY Urine Hyaline Casts 2 Urine Granular Casts 2 Urine Mucus FEW Microscopic Urinalysis Comment CATH-CULTURE IND Date/Time Source Procedure Growth Status 09/25/17 00:05 Urine Catheterized Urine Urine Culture Pending Received Result Diagram: [id number]/24/[id number]/[id number] Imaging Last Impressions Head CT 09/24/172152 Signed Impressions: Service Date/Time: Sunday, September 24, 2017 22:18 - CONCLUSION: No acute intracranial findings Jono Joiner MD Chest X-Ray 09/24/17 4080 Signed Impressions: Service Date/Time: Sunday, September 24, 2017 22:01 - CONCLUSION: No acute disease. Jono Joiner MD Septic Shock Reassessment Septic shock perfusion: reassessment completed Caprini VTE Risk Assessment Caprini VTE Risk Assessment: Mod/High Risk (score >= 2) Caprini Risk Assessment Model Point Value = 1 Point Value = 2 Point Value = 3 Point Value = 5 Age 41-60 Minor surgery BMI > 25 kg/m2 Swollen legs Varicose veins or History of unexplained or recurrent spontaneous Oral contraceptives or hormone replacement Sepsis (< 1 month) Serious lung disease, including pneumonia (< 1 month) Abnormal pulmonary function Acute myocardial infarction Congestive heart failure (< 1 month) History of inflammatory bowel disease Medical patient at bed rest Age 61-74 Arthroscopic surgery Major open surgery (> 45 min) Laparoscopic surgery (> 45 min) Malignancy Confined to bed (> 72 hours) Immobilizing plaster cast Central venous access Age >= 75 History of VTE Family history of VTE Factor V Leiden Prothrombin [id number] Lupus anticoagulant Anticardiolipin antibodies Elevated serum homocysteine Heparin-induced thrombocytopenia Other congenital or acquired thrombophilia Stroke (< 1 month) Elective arthroplasty Hip, pelvis, or leg fracture Acute spinal cord injury (< 1 month) Prophylaxis Regimen Total Risk Factor Score Risk Level Prophylaxis Regimen 0-1 Low Early ambulation 2 Moderate Order ONE of the following: *Sequential Compression Device (SCD) *Heparin 5000 units SQ BID 3-4 Higher Order ONE of the following medications: *Heparin 5000 units SQ TID *Enoxaparin/Lovenox 40 mg SQ daily (WT < 150 kg, CrCl > 30 mL/min) *Enoxaparin/Lovenox 30 mg SQ daily (WT < 150 kg, CrCl > 10-29 mL/min) *Enoxaparin/Lovenox 30 mg SQ BID (WT < 150 kg, CrCl > 30 mL/min) AND/OR *Sequential Compression Device (SCD) 5 or more Highest Order ONE of the following medications: *Heparin 5000 units SQ TID (Preferred with Epidurals) *Enoxaparin/Lovenox 40 mg SQ daily (WT < 150 kg, CrCl > 30 mL/min) *Enoxaparin/Lovenox 30 mg SQ daily (WT < 150 kg, CrCl > 10-29 mL/min) *Enoxaparin/Lovenox 30 mg SQ BID (WT < 150 kg, CrCl > 30 mL/min) AND *Sequential Compression Device (SCD) Assessment and Plan Problem List: (1) Acute metabolic encephalopathy ICD Code: G93.41 - Metabolic encephalopathy (2) UTI (urinary tract infection) ICD Code: N39.0 - Urinary tract infection, site not specified Status: Acute (3) HTN (hypertension) ICD Code: I10 - Essential (primary) hypertension Status: Chronic (4) Seizure ICD Code: R56.9 - Unspecified convulsions Status: Acute (5) DM (diabetes mellitus) ICD Code: E11.9 - Type 2 diabetes mellitus without complications Status: Chronic Assessment and Plan 71-year-old female with Metabolic encephalopathy Head CT noted and reviewed by me without any acute finding Chest x-ray noted and reviewed by me without any cardiac or pulmonary disease Patient with known history of seizure disorder, therefore will check EEG and monitor Dilantin level Ammonia level within normal limit She presented with abnormal UA for which patient is currently on IV antibiotic pending culture UTI Currently on Rocephin pending culture report Mood disorder, hallucination Case discussed with Dr. Patino psychiatry, and he Rodriguez acted the patient. We will arrange for discharge to Med/Psych History of seizure disorder Currently on Keppra 500 mg every 12 hours Check Keppra level We will order EEG Neurology consultation as needed Hypertension Labile BP Patient currently not on any oral antihypertensive medication, will start low -dose Norvasc 5mg daily Diabetes type 2 diet controlled Start insulin sliding scale Leukopenia and thrombocytopenia Appear chronic Outpatient follow-up with hematology Generalized weakness PT consult to treat any wound DVT prophylaxis: Bilateral SCDs Code Status Full code Reji Vincent MD September 25, 2017 08:04
--- NOTE | 2017-09-25 08:37 | HHI.DCPOC ---
Discharge Care Plan Diagnosis: (1) UTI (urinary tract infection) (2) Altered mental status, unspecified Goals to Promote Your Health * To prevent worsening of your condition and complications * To maintain your health at the optimal level Directions to Meet Your Goals Take your medications as prescribed Follow your dietary instruction Follow activity as directed Keep your appointments as scheduled Take your immunizations and boosters as scheduled If your symptoms worsen call your PCP, if no PCP go to Urgent Care Center or Emergency Room Smoking is Dangerous to Your Health. Avoid second hand smoke Call the 24-hour hour crisis hotline for domestic abuse at [employer] PA-C September 25, 2017 08:37
[2017-09-25] MEDS ORDERED: levETIRAcetam 500 MG TAB PO SCH (09:00)
[2017-09-25] MEDS ORDERED: SODIUM CHLORIDE 0.9% FLUSH 10 ML FLUSH IV FLUSH SCH (09:00)
[2017-09-25] MEDS ORDERED: DOCUSATE SODIUM 50 MG/SENNA 8.6 MG TAB PO SCH (09:00)
[2017-09-25] MEDS ORDERED: RESP: ALBUTEROL 2.5 MG/IPRATROPIUM 0.5 MG NEB (PRN) NEB (10:00)
[2017-09-25 11:40] VITALS: BP 134/72; PULSE 69; RESP 18; TEMP 98.2; O2SAT 98
--- NOTE | 2017-09-25 12:52 | HHI.HP ---
Provisional Diagnosis Admission Date September 25, 2017 at 01:01 [place] I. Unspecified psychosis, r/o delirium due to underlying medical conditions, r/o dementia with behavioral disturbances [place] II. Deferred [place] III. Hypertension, seizures, diabetes, UTI [place] IV. Patient is a poor historian [place] V. 40 Certification of Person's Competence To Provide Express and Informed Consent I have personally examined Lisa Juarez , a person being served at [facility] on, September 25, 2017 12:35. Express and informed consent means consent voluntarily given in writing, by a competent person, after sufficient explanation and disclosure of the subject matter involved to enable the person to make a knowing and willful decision without any element of force, fraud, deceit, duress, or other form of constraint or coercion. This person is 18 years of age or older, is not now known to be incompetent to consent to treatment with a guardian advocate, and does not have a health care surrogate or proxy currently making medical treatment decisions. I have found this person to be one of the following: [] Competent to provide express and informed consent, as defined above, for voluntary admission to this facility and is competent to provide express and informed consent for treatment. He/she has the consistent capacity to make well reasoned, willful, and knowing decisions concerning his or her medical or mental health treatment. The person fully and consistently understands the purpose of the admission for examination/placement and is fully capable of personally exercising all rights assured [place] [x] Incompetent to provide express and informed consent to voluntary admission, and this is incompetent to provide express and informed consent to treatment. The person must be transferred to involuntary status and a petition for a guardian advocate filed with the Circuit Court. [] Refusing to provide express and informed consent to voluntary admission but is competent to provide express and informed consent for treatment. The person must be discharged or transferred to involuntary status. Form shall be completed within 24 hours of a person's arrival at the receiving facility and filed in the clinical record of each person: 1. Admitted on a voluntary basis 2. Permitted to provide express and informed consent to his/her own treatment 3. Allowed to transfer from involuntary to voluntary status 4. Prior to permitting a person to consent to his or her own treatment after having been previously found incompetent to consent to treatment. History of Present Illness Capacity: Lacks Capacity HPI The patient is 71-year-old -[place] woman, domiciled with her causing in [facility], she is , no kids, supported by disability, she has no previous psychiatric history, no previous suicide attempts, no previous psychiatric hospitalization, the patient is noted psychotropics, she has a medical history of hypertension, seizures, diabetes, who presents to the emergency department via EMS for evaluation of altered mental status. According to EMS, she has been altered for 1 month. Collateral information from her causing Casandra ([phone]), who is her fiscal clerk, states that for the past 2 weeks she has been going in and out of the bathroom and stating that she is seeing people and that people are recording her. She also has been paranoid, stating that she is going to be poisoned and people are looking at her from the window. She will not bathe and has not eaten in 2 days. She is not sleeping at night. She has been agitated and at times aggressive. She states that she has a significant history of a subarachnoid hemorrhage 3-4 years ago. On admissions vitals temperature 98.8, pulse 89, respiratory rate 18 blood pressure 138/82 patient satting 97% on room air. Chest x-ray was obtained without any cardiopulmonary disease and head CT unremarkable. Abnormal lab included WBC 2.1 and a platelet of 107 which appears to be chronic for patient. She has had abnormal UA. Patient has a known history of coagulopathy. Now, on psychiatric evaluation the presents as a very poor historian. She knows that she is at [facility], but she thinks that we are in April 2000. Patient states that she came to the hospital because she was having pain in her back. Patient reports to be in a good mood, she denies depressive symptoms, she denies suicidal and homicidal ideation. Patient does report that there are people coming inside her room and inside her house and running and also misplacing her things. Patient does not seem to have an insight of her perceptual disturbances. She seems to be quite distressed and anxious about visual hallucinations. On the evaluation the patient also presents disorganized speech and word salad. She denies the use of illegal drugs and alcohol. Review of Systems Constitutional: DENIES: Diaphoretic episodes, Fatigue, Fever, Weight gain, Weight loss, Chills, Dizziness, Change in appetite, Night Sweats Endocrine: DENIES: Abnorml menstrual pattern, Heat/cold intolerance, Polydipsia , Polyuria, Polyphagia Eyes: DENIES: Blurred vision, Diplopia, Eye inflammation, Eye pain, Vision loss , Photosensitivity, Double Vision Ears, nose, mouth, throat: DENIES: Tinnitus, Hearing loss, Vertigo, Nasal discharge, Oral lesions, Throat pain, Hoarseness, Ear Pain, Running Nose, Epistaxis, Sinus Pain, Toothache, Odynophagia Respiratory: DENIES: Apneas, Cough, Snoring, Wheezing, Hemoptysis, Sputum production, Shortness of breath Cardiovascular: DENIES: Chest pain, Palpitations, Syncope, Dyspnea on Exertion , PND, Lower Extremity Edema, Orthopnea, Claudication Gastrointestinal: DENIES: Abdominal pain, Black stools, Bloody stools, Constipation, Diarrhea, Nausea, Vomiting, Difficulty Swallowing, Anorexia Genitourinary: DENIES: Abnormal vaginal bleeding, Dysmenorrhea, Dyspareunia, Sexual dysfunction, Urinary frequency, Urinary incontinence, Urgency, Hematuria , Dysuria, Nocturia, Vaginal discharge Musculoskeletal: DENIES: Joint pain, Muscle aches, Stiffness, Joint Swelling, Back pain, Neck pain Integumentary: DENIES: Abnormal pigmentation, Pruritus, Rash, Nail changes, Breast masses, Breast skin changes, Nipple discharge Hematologic/lymphatic: DENIES: Bruising, Lymphadenopathy Immunologic/allergic: DENIES: Eczema, Urticaria Neurologic: DENIES: Abnormal gait, Headache, Localized weakness, Paresthesias, Seizures, Speech Problems, Tremor, Poor Balance Psychiatric: COMPLAINS OF: Hallucinations, Agitation, DENIES: Anxiety, Confusion, Mood changes, Depression, Suicidal Ideation, Homicidal Ideation, Delusions Past Psych History Violence risk - self (6 mos) Elevated Substance Abuse History Drugs/Alcohol past 12 months Patient denies the use of alcohol and illegal drugs. Past Family Social History Coded Allergies: morphine (Unverified Allergy, Severe, TROUBLE BREATHING, 09/24/17) Active Scripts Levetiracetam (Keppra) 500 Mg Tab, 500 MG PO Q12HR for Control Seizures, #60 TAB Prov:Ld Gilbert MD 06/04/16 Misc. Devices (Roller Walker) 1 Mis Mis, 1 EA .ROUTE NOW, #1 EA Prov:Ld Gilbert MD 06/04/16 Discontinued Reported Medications Methocarbamol (Robaxin) 750 Mg Tab, 750 MG PO Q4H for Muscle Spasm, TAB 0 Refills 06/02/16 Discontinued Scripts Hydrocodone-Acetaminophen (Hydrocodone-Acetaminophen) 5-325 mg Tab, 1 TAB PO Q6HR Y for pain, #28 TAB Prov:Ld Gilbert Lisa HIGGINS 06/03/16 Current Medications Medications (Trade) Dose Ordered Sig/Marcos Route Start Time Stop Time Status Last Admin (NS Flush) 2 ml UNSCH PRN IV FLUSH 09/24/17 22:00 Ceftriaxone Sodium 1000 mg/ Sodium Chloride 100 ml @ 200 mls/hr Q24H IV 09/26/17 01:00 (NS Flush) 2 ml UNSCH PRN IV FLUSH 09/25/17 01:45 (NS Flush) 2 ml BID IV FLUSH 09/25/17 09:00 09/25/17 08:54 (Tylenol) 650 mg Q4H PRN PO 09/25/17 01:45 (Zofran Odt) 4 mg Q6H PRN PO 09/25/17 01:45 (Heparin Inj) 5,000 units Q12H SQ 09/25/17 06:00 09/25/17 05:14 (Narcan Inj) 0.4 mg UNSCH PRN IV PUSH 09/25/17 01:45 (Milk Of Magnesia Liq) 30 ml Q12H PRN PO 09/25/17 01:45 (Keppra) 500 mg Q12HR PO 09/25/17 09:00 09/25/17 08:53 (D50w (Vial) Inj) 50 ml UNSCH PRN IV PUSH 09/25/17 08:00 (Glucagon Inj) 1 mg UNSCH PRN OTHER 09/25/17 08:00 (NovoLOG SUPPLEMENTAL SCALE) 1 ACHS SLIDING SCALE SQ 09/25/17 08:00 (Duoneb Neb) 1 ampule Q2HR NEB PRN NEB 09/25/17 10:00 Family Psych History No family psychiatric Social History Patient was born and raised in [place], he lives with her causing in [facility], she has no kids, she is , supported by SSI, her highest level of education is ninth grade Patient's Strengths (min. 2) Family support Physical Exam Patient has no agitation, no tremors, no EPS, no seizures at this time Vital Signs Vital Signs Date Time Temp Pulse Resp B/P (MAP) Pulse Ox O2 Delivery O2 Flow Rate FiO2 09/25/17 11:40 98.2 69 18 134/72 (92) 98 09/24/17 21:57 Room Air I/O 09/25/17 09/25/17 09/26/17 08:00 16:00 00:00 Intake Total 100 ml Balance 100 ml Lab Results Test 09/24/17 22:06 09/25/17 00:05 09/25/17 10:39 White Blood Count 3.1 TH/MM3 Red Blood Count 4.72 MIL/MM3 Hemoglobin 13.3 GM/DL Hematocrit 40.6 % Mean Corpuscular Volume 86.1 FL Mean Corpuscular Hemoglobin 28.2 PG Mean Corpuscular Hemoglobin Concent 32.7 % Red Cell Distribution Width 14.4 % Platelet Count 107 TH/MM3 Mean Platelet Volume 9.0 FL Neutrophils (%) (Auto) 71.3 % Lymphocytes (%) (Auto) 18.0 % Monocytes (%) (Auto) 9.9 % Eosinophils (%) (Auto) 0.4 % Basophils (%) (Auto) 0.4 % Neutrophils # (Auto) 2.2 TH/MM3 Lymphocytes # (Auto) 0.6 TH/MM3 Monocytes # (Auto) 0.3 TH/MM3 Eosinophils # (Auto) 0.0 TH/MM3 Basophils # (Auto) 0.0 TH/MM3 CBC Comment DIFF FINAL Differential Comment Prothrombin Time 12.6 SEC Prothromb Time International Ratio 1.2 RATIO Activated Partial Thromboplast Time 22.3 SEC Blood Urea Nitrogen 12 MG/DL Creatinine 0.93 MG/DL Random Glucose 88 MG/DL Total Protein 8.2 GM/DL Albumin 3.3 GM/DL Calcium Level 9.0 MG/DL Magnesium Level 1.8 MG/DL Alkaline Phosphatase 56 U/L Aspartate Amino Transf (AST/SGOT) 51 U/L Alanine Aminotransferase (ALT/SGPT) 25 U/L Total Bilirubin 1.0 MG/DL Sodium Level 142 MEQ/L Potassium Level 4.4 MEQ/L Chloride Level 101 MEQ/L Carbon Dioxide Level 29.7 MEQ/L Anion Gap 11 MEQ/L Estimat Glomerular Filtration Rate 72 ML/MIN Ammonia 18 MCMOL/L Total Creatine Kinase 74 U/L Troponin I LESS THAN 0.02 NG/ML Urine Color YELLOW Urine Turbidity CLEAR Urine pH 6.5 Urine Specific [place] 1.013 Urine Protein NEG mg/dL Urine Glucose (UA) NEG mg/dL Urine Ketones TRACE mg/dL Urine Occult Blood SMALL Urine Nitrite NEG Urine Bilirubin NEG Urine Urobilinogen 2.0 MG/DL Urine Leukocyte Esterase MOD Urine RBC 1 /hpf Urine WBC 11 /hpf Urine Squamous Epithelial Cells 2 /hpf Urine Bacteria MANY /hpf Urine Hyaline Casts 2 /lpf Urine Granular Casts 2 /lpf Urine Mucus FEW /lpf Microscopic Urinalysis Comment CATH-CULTURE IND Date/Time Source Procedure Growth Status 09/25/17 00:05 Urine Catheterized Urine Urine Culture Pending Received Mental Status Examination Appearance: Appropriate Consciousness: Alert Orientation: Person Motor Activity: Normal gait Speech: Unremarkable Language: Adequate Fund of Knowledge: Adequate Attention and Concentration: Adequate Memory: Impaired Mood: Appropriate Affect: Irritable Thought Process & Associations: Loose associations Thought Content: Bizarre thinking Hallucination Type: Visual Delusion Type: None, Paranoid Suicidal Ideation: No Suicidal Plan: No Suicidal Intention: No Homicidal Ideation: No Homicidal Plan: No Homicidal Intention: No Insight: Poor Judgment: Poor Assessment & Plan Problem List: (1) Unspecified psychosis ICD Codes: F29 - Unspecified psychosis not due to a substance or known physiological condition Assessment & Plan: On psychiatric evaluation today the patient presents poorly cooperative, she is a very poor historian, she is confused, partially disoriented. Patient is irritable, reporting that she has been seeing people coming inside her room, misplacing her things, trying to poison her. Her cousin , which she lives with, explains that the patient has been having this septal disturbances for about 2 weeks and the patient has been very disturbed, anxious , this regulated and not sleeping at night. The patient does not have any previous psychiatric history, no psychiatric hospitalizations, no previous suicidal attempts. The patient does not have a formal diagnosis of dementia. Current symptoms seems to be secondary to a medical condition, most probably UTI or epileptogenic activity. EEG was done and was unremarkable. UTI was treated in the ER ceftriaxone at thousand milligrams IV. Given her level of psychosis and disorganization, the patient will be admitted in psychiatry for stabilization and safety. Will consult hospitalist to continue exploring another potential conditions that could account for perceptual disturbances. We will consult psychiatry for second opinion. We will start Seroquel 12.5 mg twice daily for psychosis, this medication was widely discussed with Casandra Martinez, HCP, and she agrees. Assessment & Plan Estimated LOS: Italo Laura MD September 25, 2017 12:52
--- NOTE | 2017-09-25 12:53 | HHI.PR ---
Addendum to Inpatient Note Addendum Reason: Additional Documentation Additional Information Discharge patient to inpatient Med/Psychiatry Condition on discharge: Improved Regular Diet as tolerated Ad Siena activity Rx written:see EMR Follow-up with primary care physician in 2-3 days Reji Vincent MD September 25, 2017 12:53
--- NOTE | 2017-09-25 18:20 | EKG ---
Date Performed: 09/24/2017 Time Performed: 22:03:57 PTAGE: 71 years EKG: Sinus rhythm WITH MARKED SINUS ARRHYTHMIA LEFT ANTERIOR FASCICULAR BLOCK POSSIBLE ANTERIOR MYOCARDIAL INFARCTION ABNORMAL ECG PREVIOUS TRACING : 06/02/2016 16.10 Since the previous tracing, no significant change noted DOCTOR: Francesca Braldey Interpretating Date/Time 09/25/2017 18:18:30
--- NOTE | 2017-09-25 20:50 | MG ---
cc: Sarthak Salcedo MD DESCRIPTION OF RECORD: 6-8 Hz posterior rhythm, 20-40 microvolts with a lot of myogenic artifact in the frontal channels almost continuous, slight increased beta frequencies. Attenuation generalized slowing transition into drowsy stage I and stage II sleep. Tiny sharp transients left frontal central region noted at epoch 68. K complex and spindle appearance followed by awake state. Return to sleep, in and out. Good EEG variability and reactivity noted. Good driving with photic stimulation. Single lead EKG showing sinus rhythm. INTERPRETATION: Minimal encephalopathy, sleep state. Subtle frontal nonspecific changes. Otherwise good electroencephalogram variability and reactivity. Clinical correlation. MD PERFECTO Rivas/ , 08:39 PM , 08:50 PM [facility]
[2017-09-26] MEDS ORDERED: cefTRIAXone INJ 1,000 MG in SODIUM CHLORIDE 0.9% INJ 100 ML IV SCH (01:00)
[2017-10-03] MEDS ORDERED: QUET5TAB PO (10:56)
[2017-10-03] MEDS ORDERED: LEVE500 PO (10:56)
== END 2017-09-25 13:29 ==
LOC: NEPC 21:10 → NEDA 09-25 01:01 → NEPFCDU 09-25 01:50
PROVIDERS: ADMIT Hospitalist; ATTEND Hospitalist
DX: G93.41 Metabolic encephalopathy (principal); N39.0 Urinary tract infection, site not specified; I10 Essential (primary) hypertension; E11.9 Type 2 diabetes mellitus without complications; J45.909 Unspecified asthma, uncomplicated; I44.4 Left anterior fascicular block; R94.31 Abnormal electrocardiogram [ECG] [EKG]; F39 Unspecified mood [affective] disorder; G40.909 Epilepsy, unspecified, not intractable, without status epilepticus; D72.819 Decreased white blood cell count, unspecified; D69.6 Thrombocytopenia, unspecified; R53.1 Weakness; Z79.899 Other long term (current) drug therapy
CPT/HCPCS: 70450; 71045; 80053; 80177; 81001; 82140; 82550; 82948; 83735; 84484; 85025; 85610; 85730; 87077; 87086; 87186; 93005; 95819; 96361; 96365; 96372; 97162; 99285; G0378; G8987; G8988; J0696; J1644; J7030

== ENCOUNTER 2017-09-25 13:33 | Inpatient (IN) | END 2017-10-03 12:10 | disposition home or self-care (01) | DRG 885 | DX: F29 Unspecified psychosis not due to a substance or known physiological condition (principal); N39.0 Urinary tract infection, site not specified; B37.3 Candidiasis of vulva and vagina; E11.9 Type 2 diabetes mellitus without complications; I10 Essential (primary) hypertension; G40.909 Epilepsy, unspecified, not intractable, without status epilepticus; M54.9 Dorsalgia, unspecified; Z82.3 Family history of stroke ==

== ENCOUNTER 2017-10-03 13:34 | Emergency (ER) | payer MEDICARE ==
[~2017-10-03] VITALS: Ht 152.4 cm; Wt 84.0 kg
[~2017-10-03 13:34] MED LIST changes: -HYDR-3516 PO; +QUET5TAB PO; -ROBA750T PO
[2017-10-03 13:44] VITALS: BP 127/78; PULSE 69; RESP 12; TEMP 97.8
[2017-10-03] MEDS ORDERED: SODIUM CHLOR 0.9% 1000 ML INJ 1,000 ML IV ONE (13:50)
[2017-10-03 13:53] VITALS: BP_SYST 140; BP_SYST 143; BP_SYST 152; BP_DIAS 77; BP_DIAS 86; BP_DIAS 95; RESP 19; RESP 20; RESP 21
--- NOTE | 2017-10-03 14:07 | PD ---
HPI Chief Complaint: Dizziness Time Seen by Provider: 13:46 Travel History International Travel<30 days: No Contact w/Intl Traveler<30days: No Traveled to known affect area: No History of Present Illness HPI This is a 71-year-old female who presents via EMS for evaluation of an episode of dizziness. The patient was just discharged this afternoon from the psychiatry unit where she was being evaluated by psychiatry and the hospitalist for unspecified psychosis. Immediately upon returning home she was reportedly ambulating in her home when she had an episode of dizziness. Currently resolved. She reports that she lives with her cousin Casandra who is her summer sessions director. She reports that occasionally she has abdominal pain but none currently. She reports that she occasionally has dysuria. According the chart review it appears that the patient was found to have a UTI on September 25 and it does not appear that the patient is currently being treated for it. She denies any headache, neck pain, chest pain, shortness of breath, nausea, vomiting, blurred vision. She has no other complaints at this time. PFSH Past Medical History Anemia: Yes Arthritis: Yes Asthma: Yes Blood Disorders: No Heart Rhythm Problems: No Cancer: No Cardiovascular Problems: Yes High Cholesterol: No Chest Pain: No Congestive Heart Failure: No COPD: No Cerebrovascular Accident: No Diabetes: Yes Diminished Hearing: No Endocrine: No Gastrointestinal Disorders: No Genitourinary: No Headaches: No Hypertension: Yes Implanted Vascular Access Dvce: Yes Musculoskeletal: Yes Neurologic: Yes Psychiatric: No Reproductive: No Respiratory: Yes Migraines: No Myocardial Infarction: No Seizures: Yes Sleep Apnea: No Menopausal: Yes Past Surgical History Abdominal Surgery: No Body Medical Devices: clips in brain Cardiac Surgery: No Ear Surgery: No Endocrine Surgery: No Eye Surgery: No Genitourinary Surgery: No Gynecologic Surgery: No Neurologic Surgery: Yes (SUBARACHNOID HEMORRHAGE, ) Oral Surgery: No Thoracic Surgery: No Other Surgery: Yes Social History Alcohol Use: No Tobacco Use: Yes Substance Use: No Allergies-Medications (Allergen,Severity, Reaction): Coded Allergies: morphine (Unverified Allergy, Severe, TROUBLE BREATHING, 10/03/17) Reported Meds & Prescriptions Reported Meds & Active Scripts Active Keflex (Cephalexin) 500 Mg Cap 500 Mg PO Q12H 7 Days Quetiapine (Quetiapine Fumarate) 50 Mg Tab 50 Mg PO BID Keppra (Levetiracetam) 500 Mg Tab 500 Mg PO Q12HR 30 Days Roller Walker (Misc. Devices) 1 Mis Mis 1 Ea .ROUTE NOW Review of Systems Except as stated in HPI: all other systems reviewed are Neg Physical Exam Narrative GENERAL: Well-developed well-nourished female no acute distress laying on bed. SKIN: Warm and dry. HEAD: Atraumatic. Normocephalic. EYES: Pupils equal and round. No scleral icterus. No injection or drainage. ENT: No nasal bleeding or discharge. Mucous membranes pink and moist. NECK: Trachea midline. No JVD. CARDIOVASCULAR: Regular rate and rhythm. No murmur appreciated. RESPIRATORY: No accessory muscle use. Clear to auscultation. Breath sounds equal bilaterally. GASTROINTESTINAL: Abdomen soft, non-tender, nondistended. Hepatic and splenic margins not palpable. MUSCULOSKELETAL: No obvious deformities. No clubbing. No cyanosis. No edema. NEUROLOGICAL: Awake and alert. No obvious cranial nerve deficits. Motor grossly within normal limits. Normal speech. Data Data Last Documented VS Vital Signs Date Time Temp Pulse Resp B/P (MAP) Pulse Ox O2 Delivery O2 Flow Rate FiO2 10/03/17 13:53 75 20 152/86 (108) 80 19 143/95 (111) 90 21 140/77 (98) 10/03/17 13:44 97.8 Orders Orders Electrocardiogram (10/03/17 13:50) Complete Blood Count With Diff (10/03/17 13:50) Comprehensive Metabolic Panel (10/03/17 13:50) Magnesium (Mg) (10/03/17 13:50) Urinalysis - C+S If Indicated (10/03/17 13:50) Blood Glucose (10/03/17 13:50) Ecg Monitoring (10/03/17 13:50) Iv Access Insert/Monitor (10/03/17 13:50) Sodium Chlor 0.9% 1000 Ml Inj (Ns 1000 M (10/03/17 13:50) Orthostatic Vital Signs (10/03/17 13:50) Cath For Specimen (10/03/17 13:50) Ed Discharge Order (10/03/17 15:56) Ceftriaxone Inj (Rocephin Inj) (10/03/17 16:00) Labs Laboratory Tests Test 10/03/17 14:06 10/03/17 14:29 White Blood Count 2.5 TH/MM3 Red Blood Count 4.65 MIL/MM3 Hemoglobin 12.9 GM/DL Hematocrit 39.9 % Mean Corpuscular Volume 85.7 FL Mean Corpuscular Hemoglobin 27.7 PG Mean Corpuscular Hemoglobin Concent 32.4 % Red Cell Distribution Width 14.5 % Platelet Count 113 TH/MM3 Mean Platelet Volume 8.7 FL Neutrophils (%) (Auto) 58.9 % Lymphocytes (%) (Auto) 27.9 % Monocytes (%) (Auto) 10.4 % Eosinophils (%) (Auto) 1.6 % Basophils (%) (Auto) 1.2 % Neutrophils # (Auto) 1.5 TH/MM3 Lymphocytes # (Auto) 0.7 TH/MM3 Monocytes # (Auto) 0.3 TH/MM3 Eosinophils # (Auto) 0.0 TH/MM3 Basophils # (Auto) 0.0 TH/MM3 CBC Comment DIFF FINAL Differential Comment Blood Urea Nitrogen 12 MG/DL Creatinine 0.87 MG/DL Random Glucose 91 MG/DL Total Protein 7.8 GM/DL Albumin 3.0 GM/DL Calcium Level 9.0 MG/DL Magnesium Level 2.1 MG/DL Alkaline Phosphatase 61 U/L Aspartate Amino Transf (AST/SGOT) 49 U/L Alanine Aminotransferase (ALT/SGPT) 26 U/L Total Bilirubin 0.6 MG/DL Sodium Level 142 MEQ/L Potassium Level 4.3 MEQ/L Chloride Level 103 MEQ/L Carbon Dioxide Level 31.8 MEQ/L Anion Gap 7 MEQ/L Estimat Glomerular Filtration Rate 78 ML/MIN Urine Color YELLOW Urine Turbidity HAZY Urine pH 5.0 Urine Specific Gary 1.016 Urine Protein TRACE mg/dL Urine Glucose (UA) NEG mg/dL Urine Ketones NEG mg/dL Urine Occult Blood NEG Urine Nitrite NEG Urine Bilirubin NEG Urine Urobilinogen 2.0 MG/DL Urine Leukocyte Esterase SMALL Urine RBC 1 /hpf Urine WBC 1 /hpf Urine Squamous Epithelial Cells 1 /hpf Urine Hyaline Casts 9 /lpf Urine Mucus FEW /lpf Microscopic Urinalysis Comment CULT NOT INDICATED MDM Medical Decision Making Medical Screen Exam Complete: Yes Emergency Medical Condition: Yes Medical Record Reviewed: Yes Differential Diagnosis Orthostatic hypotension, dehydration, electrolyte abnormality, UTI, vasovagal reaction, vertigo Narrative Course I reviewed the patient's medical records. She was admitted here for several days for evaluation of unspecified psychosis and discharged today. During that time she underwent chest x-ray, CT the brain which revealed no acute abnormalities, lab work, urinalysis which culture results have grown out Klebsiella pneumonia. Plan today is for basic lab work, repeat urinalysis, she will be given IV fluids, orthostatic vital signs will be obtained. Orthostatic vital signs are unremarkable. The patient was asymptomatic when standing and she has been asymptomatic during her hospital stay. CBC reveals WBC of 2.5 and platelet count of 113 consistent with her baseline. CMP is unremarkable. Urinalysis reveals small leukocytes, this is a cath specimen and urine culture from September 25 growing Klebsiella pneumonia. Therefore the patient will be treated for pneumonia. She will be discharged with Keflex, provided a dose of ceftriaxone here. Diagnosis Primary Impression: UTI (urinary tract infection) Additional Impression: Dizziness Additional Instructions: Medication as prescribed. Follow-up with primary care physician. Return for any emergent medical conditions. Med/Other Pt SpecificInfo: Prescription(s) given Scripts Cephalexin (Keflex) 500 Mg Cap 500 MG PO Q12H for Infection for 7 Days, #14 CAP 0 Refills Prov: Stanley Epps MD 10/03/17 Disposition: 01 DISCHARGE HOME Condition: Stable Osmani Copeland October 03, 2017 14:07
[2017-10-03 15:04] LABS: AUTOMATED NEUTROPHIL # 1.5 TH/MM3 (1.8-7.7); BASOPHIL % 1.2 % (0.0-2.0); EOSINOPHIL % 1.6 % (0.0-4.0); HEMATOCRIT 39.9 % (35.0-46.0); HEMOGLOBIN 12.9 GM/DL (11.6-15.3); LYMPH % 27.9 % (9.0-44.0); LYMPHOCYTE # 0.7 TH/MM3 (1.0-4.8); MEAN CELL VOLUME 85.7 FL (80.0-100.0); MEAN CORPUSCULAR HEMOGLOBIN 27.7 PG (27.0-34.0); MEAN CORPUSCULAR HGB CONC 32.4 % (32.0-36.0); MEAN PLATELET VOLUME 8.7 FL (7.0-11.0); MONO % 10.4 % (0.0-8.0); MONOCYTE # 0.3 TH/MM3 (0-0.9); NEUT % 58.9 % (16.0-70.0); PLATELET COUNT 113 TH/MM3 (150-450); RED BLOOD COUNT 4.65 MIL/MM3 (4.00-5.30); RED CELL DISTRIBUTION WIDTH 14.5 % (11.6-17.2); WHITE BLOOD COUNT 2.5 TH/MM3 (4.0-11.0)
[2017-10-03 15:24] LABS: BILIRUBIN, URINE NEG (NEG); BLOOD, URINE NEG (NEG); GLUCOSE,URINE NEG (NEG); HYALINE CAST, URINE 9 /lpf (RARE); KETONE, URINE NEG (NEG); MUCUS URINE FEW /lpf (OCC); NITRITE,URINE NEG (NEG); SQUAMOUS EPITHELIAL CELL URINE 1 /hpf (0-5); URINE COLOR YELLOW (YELLW/STRAW); URINE LEUKOCYTE ESTERASE SMALL (NEG)
[2017-10-03 15:36] LABS: AST (GOT) 49 U/L (15-37); BICARBONATE 31.8 MEQ/L (21.0-32.0); BLOOD UREA NITROGEN 12 MG/DL (7-18); CHLORIDE 103 MEQ/L (98-107); CREATININE 0.87 MG/DL (0.50-1.00); GLOMERULAR FILTRATION RATE 78 ML/MIN (>89); GLUCOSE,RANDOM 91 MG/DL (74-106); MAGNESIUM 2.1 MG/DL (1.5-2.5); SODIUM (NA) 142 MEQ/L (136-145)
[2017-10-03 15:38] LABS: ALKALINE PHOSPHATASE 61 U/L (45-117); ALT (GPT) 26 U/L (10-53); TOTAL BILIRUBIN ADULT 0.6 MG/DL (0.2-1.0); TOTAL PROTEIN 7.8 GM/DL (6.4-8.2)
[2017-10-03] MEDS ORDERED: CEPH-460 PO (15:58)
[2017-10-03] MEDS ORDERED: cefTRIAXone INJ 1,000 MG in SODIUM CHLORIDE 0.9% INJ 100 ML IV ONE (16:00)
== END 2017-10-03 16:49 | disposition home or self-care (01) ==
LOC: NEPC 13:34
DX: N39.0 Urinary tract infection, site not specified (principal); R42 Dizziness and giddiness; B96.1 Klebsiella pneumoniae [K. pneumoniae] as the cause of diseases classified elsewhere; Z72.0 Tobacco use; Z79.899 Other long term (current) drug therapy
CPT/HCPCS: 80053; 81001; 83735; 85025; 99284; P9612

== ENCOUNTER 2017-10-10 20:02 | Inpatient (IN) | payer MEDICARE, OTHER ==
[~2017-10-10] VITALS: Ht 167.6 cm; Wt 78.9 kg
[~2017-10-10 20:02] MED LIST changes: +CEPH-460 PO
[2017-10-10 20:16] VITALS: BP 157/95; PULSE 89; RESP 18; TEMP 98.2; O2SAT 97
--- NOTE | 2017-10-10 20:35 | PD ---
HPI Chief Complaint: General Weakness Time Seen by Provider: 20:21 Travel History International Travel<30 days: No Contact w/Intl Traveler<30days: No Traveled to known affect area: No History of Present Illness HPI 71-year-old female brought in by ambulance from home under a Rodriguez act. According to the Rodriguez act patient has not had anything to eat or drink in the last 3 days. The patient is also refused to bathe and has been lying in a soiled bed for 3 days. The patient's family believes that if she does not take care of herself and if she refuses to be taking care of, that harm will come to her. Chart review shows that the patient was admitted to psychiatry on September 25 of this year and was diagnosed with nonspecific psychosis and was started on Seroquel. On my assessment the patient is awake and alert with flat affect and poor eye contact. She denies any physical complaints. She states that she feels depressed, however does not want to and denies suicidal ideation. PFSH Past Medical History Anemia: Yes Arthritis: Yes Asthma: Yes Blood Disorders: No Heart Rhythm Problems: No Cancer: No Cardiovascular Problems: Yes High Cholesterol: No Chest Pain: No Congestive Heart Failure: No COPD: No Cerebrovascular Accident: No Diabetes: Yes Patient Takes Glucophage: No Diminished Hearing: No Endocrine: No Gastrointestinal Disorders: No Genitourinary: No Headaches: No Hypertension: Yes Implanted Vascular Access Dvce: Yes Musculoskeletal: Yes Neurologic: Yes Psychiatric: No Reproductive: No Respiratory: Yes Migraines: No Myocardial Infarction: No Seizures: Yes Sleep Apnea: No Menopausal: Yes Past Surgical History Abdominal Surgery: No Body Medical Devices: clips in brain Cardiac Surgery: No Ear Surgery: No Endocrine Surgery: No Eye Surgery: No Genitourinary Surgery: No Gynecologic Surgery: No Neurologic Surgery: Yes (SUBARACHNOID HEMORRHAGE, ) Oral Surgery: No Thoracic Surgery: No Other Surgery: Yes Social History Alcohol Use: No Tobacco Use: Yes Substance Use: No Allergies-Medications (Allergen,Severity, Reaction): Coded Allergies: morphine (Unverified Allergy, Severe, TROUBLE BREATHING, 10/03/17) Reported Meds & Prescriptions Reported Meds & Active Scripts Active Keflex (Cephalexin) 500 Mg Cap 500 Mg PO Q12H 7 Days Quetiapine (Quetiapine Fumarate) 50 Mg Tab 50 Mg PO BID Keppra (Levetiracetam) 500 Mg Tab 500 Mg PO Q12HR 30 Days Roller Walker (Misc. Devices) 1 Mis Mis 1 Ea .ROUTE NOW Review of Systems Except as stated in HPI: all other systems reviewed are Neg Physical Exam Narrative GENERAL: Well-developed, well-nourished, awake, flat affect, poor eye contact, depressed mood, no acute distress, smells of urine. SKIN: Focused skin assessment warm/dry. HEAD: Atraumatic. Normocephalic. EYES: Pupils equal and round. No scleral icterus. No injection or drainage. ENT: No nasal bleeding or discharge. Mucous membranes pink and dry. NECK: Trachea midline. No JVD. CARDIOVASCULAR: Regular rate and rhythm. RESPIRATORY: No accessory muscle use. Clear to auscultation. Breath sounds equal bilaterally. GASTROINTESTINAL: Abdomen soft, non-tender, nondistended. MUSCULOSKELETAL: No obvious deformities. No clubbing. No cyanosis. No edema. NEUROLOGICAL: Awake and alert. No obvious cranial nerve deficits. Motor grossly within normal limits. Normal speech. PSYCHIATRIC: Flat affect, poor eye contact, depressed mood Data Data Last Documented VS Vital Signs Date Time Temp Pulse Resp B/P (MAP) Pulse Ox O2 Delivery O2 Flow Rate FiO2 10/10/17 20:16 98.2 89 18 157/95 (115) 97 Room Air Orders Orders Complete Blood Count With Diff (10/10/17 20:28) Comprehensive Metabolic Panel (10/10/17 20:28) Thyroid Stimulating Hormone (10/10/17 20:28) Urinalysis - C+S If Indicated (10/10/17 20:28) Psych Screen (10/10/17 20:28) Drug Screen, Random Urine (10/10/17 20:28) Alcohol (Ethanol) (10/10/17 20:28) Salicylates (Aspirin) (10/10/17 20:28) Tylenol (Acetaminophen) (10/10/17 20:28) Cath For Specimen (10/10/17 21:26) Labs Laboratory Tests Test 10/10/17 20:33 10/10/17 21:01 White Blood Count 4.3 TH/MM3 Red Blood Count 5.22 MIL/MM3 Hemoglobin 14.6 GM/DL Hematocrit 44.4 % Mean Corpuscular Volume 84.9 FL Mean Corpuscular Hemoglobin 27.9 PG Mean Corpuscular Hemoglobin Concent 32.9 % Red Cell Distribution Width 14.7 % Platelet Count 132 TH/MM3 Mean Platelet Volume 8.5 FL Neutrophils (%) (Auto) 71.6 % Lymphocytes (%) (Auto) 18.6 % Monocytes (%) (Auto) 9.0 % Eosinophils (%) (Auto) 0.5 % Basophils (%) (Auto) 0.3 % Neutrophils # (Auto) 3.1 TH/MM3 Lymphocytes # (Auto) 0.8 TH/MM3 Monocytes # (Auto) 0.4 TH/MM3 Eosinophils # (Auto) 0.0 TH/MM3 Basophils # (Auto) 0.0 TH/MM3 CBC Comment DIFF FINAL Differential Comment Blood Urea Nitrogen 18 MG/DL Creatinine 0.79 MG/DL Random Glucose 65 MG/DL Total Protein 9.1 GM/DL Albumin 3.2 GM/DL Calcium Level 9.3 MG/DL Alkaline Phosphatase 61 U/L Aspartate Amino Transf (AST/SGOT) 30 U/L Alanine Aminotransferase (ALT/SGPT) 16 U/L Total Bilirubin 0.9 MG/DL Sodium Level 143 MEQ/L Potassium Level 3.9 MEQ/L Chloride Level 102 MEQ/L Carbon Dioxide Level 24.4 MEQ/L Anion Gap 17 MEQ/L Estimat Glomerular Filtration Rate 87 ML/MIN Thyroid Stimulating Hormone 3rd Gen 1.470 uIU/ML Salicylates Level LESS THAN 1.7 MG/DL Acetaminophen Level LESS THAN 2.0 MCG/ML Ethyl Alcohol Level LESS THAN 3 MG/DL Urine Color YELLOW Urine Turbidity CLEAR Urine pH 5.5 Urine Specific Bland 1.019 Urine Protein NEG mg/dL Urine Glucose (UA) NEG mg/dL Urine Ketones 40 mg/dL Urine Occult Blood NEG Urine Nitrite NEG Urine Bilirubin NEG Urine Urobilinogen 2.0 MG/DL Urine Leukocyte Esterase NEG Urine RBC 1 /hpf Urine WBC 2 /hpf Urine Squamous Epithelial Cells 1 /hpf Urine Hyaline Casts 5 /lpf Urine Mucus MOD /lpf Microscopic Urinalysis Comment CATH-CULT NOT IND Urine Opiates Screen NEG Urine Barbiturates Screen NEG Urine Amphetamines Screen NEG Urine Benzodiazepines Screen NEG Urine Cocaine Screen NEG Urine Cannabinoids Screen NEG MDM Medical Decision Making Medical Screen Exam Complete: Yes Emergency Medical Condition: Yes Differential Diagnosis Depression, dehydration, metabolic abnormality, UTI Narrative Course Vital signs reviewed. CBC: WBC 4.3, hemoglobin 14.6, hematocrit 44.4, platelets 132. CMP is remarkable for random glucose 65. The patient will be given something to eat. UA is not suggestive of UTI. Tylenol, alcohol, and salicylate levels are negative. Urine drug screen is negative. The patient is medically cleared for psychiatric evaluation and disposition by them. Diagnosis Primary Impression: Medical clearance for psychiatric admission Jaxon Allen MD October 10, 2017 20:35
[2017-10-10 21:36] LABS: AUTOMATED NEUTROPHIL # 3.1 TH/MM3 (1.8-7.7); BASOPHIL % 0.3 % (0.0-2.0); EOSINOPHIL % 0.5 % (0.0-4.0); HEMATOCRIT 44.4 % (35.0-46.0); HEMOGLOBIN 14.6 GM/DL (11.6-15.3); LYMPH % 18.6 % (9.0-44.0); LYMPHOCYTE # 0.8 TH/MM3 (1.0-4.8); MEAN CELL VOLUME 84.9 FL (80.0-100.0); MEAN CORPUSCULAR HEMOGLOBIN 27.9 PG (27.0-34.0); MEAN CORPUSCULAR HGB CONC 32.9 % (32.0-36.0); MEAN PLATELET VOLUME 8.5 FL (7.0-11.0); MONOCYTE # 0.4 TH/MM3 (0-0.9); NEUT % 71.6 % (16.0-70.0); PLATELET COUNT 132 TH/MM3 (150-450); RED BLOOD COUNT 5.22 MIL/MM3 (4.00-5.30); RED CELL DISTRIBUTION WIDTH 14.7 % (11.6-17.2); WHITE BLOOD COUNT 4.3 TH/MM3 (4.0-11.0)
[2017-10-10 21:53] LABS: ACETAMINOPHEN LESS THAN 2.0 MCG/ML (10.0-30.0); ALBUMIN 3.2 GM/DL (3.4-5.0); ALT (GPT) 16 U/L (10-53); AST (GOT) 30 U/L (15-37); BICARBONATE 24.4 MEQ/L (21.0-32.0); BLOOD UREA NITROGEN 18 MG/DL (7-18); CALCIUM 9.3 MG/DL (8.5-10.1); CHLORIDE 102 MEQ/L (98-107); CREATININE 0.79 MG/DL (0.50-1.00); GLOMERULAR FILTRATION RATE 87 ML/MIN (>89); GLUCOSE,RANDOM 65 MG/DL (74-106); SODIUM (NA) 143 MEQ/L (136-145)
[2017-10-10 22:01] LABS: BILIRUBIN, URINE NEG (NEG); BLOOD, URINE NEG (NEG); GLUCOSE,URINE NEG (NEG); HYALINE CAST, URINE 5 /lpf (RARE); KETONE, URINE 40 mg/dL (NEG); MUCUS URINE MOD /lpf (OCC); NITRITE,URINE NEG (NEG); PH, URINE 5.5 (5.0-8.5); SQUAMOUS EPITHELIAL CELL URINE 1 /hpf (0-5); URINE COLOR YELLOW (YELLW/STRAW); URINE LEUKOCYTE ESTERASE NEG (NEG)
[2017-10-10 22:02] LABS: ALKALINE PHOSPHATASE 61 U/L (45-117); TOTAL BILIRUBIN ADULT 0.9 MG/DL (0.2-1.0); TOTAL PROTEIN 9.1 GM/DL (6.4-8.2)
[2017-10-10 23:10] VITALS: BP 127/88; PULSE 86; RESP 18; TEMP 98.3; O2SAT 94
[2017-10-10] MEDS ORDERED: ALUMINUM/MAGNESIUM/SIMETH 30 ML CUP PO PRN (23:30)
[2017-10-10] MEDS ORDERED: LORazepam 0.5 MG TAB age > 65 yrs PO PRN (23:30)
[2017-10-10] MEDS ORDERED: ACETAMINOPHEN 325 MG TAB PO PRN (23:30)
[2017-10-10] MEDS ORDERED: LORazepam 2 MG/ML VIAL - age > 65 yrs IM PRN (23:30)
[2017-10-10] MEDS ORDERED: MAGNESIUM HYDROXIDE SUSP 30 ML CUP PO PRN (23:30)
[2017-10-11 05:32] VITALS: BP 164/82; PULSE 72; RESP 20; TEMP 97.7; O2SAT 95
[2017-10-11] MEDS: NICOTINE 21 MG/24 HR PATCH T-DERMAL SCH (09:00)
[2017-10-11] MEDS: QUEtiapine FUMARATE 25 MG TAB PO SCH ×2 (09:00→21:00)
[2017-10-11] MEDS: levETIRAcetam 500 MG TAB PO SCH ×2 (09:02→20:33)
--- NOTE | 2017-10-11 09:38 | HHI.HP ---
Provisional Diagnosis Admission Date October 10, 2017 at 22:32 [place]. Dementia with behavioral disturbances, summary disease late onset Certification of Person's Competence To Provide Express and Informed Consent I have personally examined Lisa Juarez , a person being served at [facility] on, October 11, 2017 09:25. Express and informed consent means consent voluntarily given in writing, by a competent person, after sufficient explanation and disclosure of the subject matter involved to enable the person to make a knowing and willful decision without any element of force, fraud, deceit, duress, or other form of constraint or coercion. This person is 18 years of age or older, is not now known to be incompetent to consent to treatment with a guardian advocate, and does not have a health care surrogate or proxy currently making medical treatment decisions. I have found this person to be one of the following: [] Competent to provide express and informed consent, as defined above, for voluntary admission to this facility and is competent to provide express and informed consent for treatment. He/she has the consistent capacity to make well reasoned, willful, and knowing decisions concerning his or her medical or mental health treatment. The person fully and consistently understands the purpose of the admission for examination/placement and is fully capable of personally exercising all rights assured under [place]xxx] Incompetent to provide express and informed consent to voluntary admission , and this is incompetent to provide express and informed consent to treatment. The person must be transferred to involuntary status and a petition for a guardian advocate filed with the Circuit Court. [] Refusing to provide express and informed consent to voluntary admission but is competent to provide express and informed consent for treatment. The person must be discharged or transferred to involuntary status. Form shall be completed within 24 hours of a person's arrival at the receiving facility and filed in the clinical record of each person: 1. Admitted on a voluntary basis 2. Permitted to provide express and informed consent to his/her own treatment 3. Allowed to transfer from involuntary to voluntary status 4. Prior to permitting a person to consent to his or her own treatment after having been previously found incompetent to consent to treatment. History of Present Illness Capacity: Lacks Capacity HPI Patient is a 71-year-old female who comes here under a Rodriguez act by the [place] [employer] dated 10/10/17 at 023 8 PM that document reviewed it states essentially Ann has not eaten or had any water in 3 days range refuses to eat or to bathe she has been in a soiled bed for 3 days. Family believes that if she does not take care of herself or refuses to be taking care of that she will might care for herself patient seen and screened in the ED urine toxicology negative blood alcohol level negative. Patient medically cleared and transferred to the unit. At the present time patient sitting quietly in Kalyani chair in the dayroom RN present throughout session patient is an alert -Thai female appears her stated age she is confused as to location though she knows she is in [place] from [place] she feels is 2011, she does not know the month or the situation. She is vague about her living situation is vague about the events got her to this hospital. Of interest patient was hospitalized here 09/25/17 through 10/04/79 under visit [id number]. She was told by Dr. Singh at that time. She was discharged to her cousin's home. Leading to the above behaviors. The readmission. Patient does deny suicidality homicidality voices or visions. At this time patient does meet criteria for further psychiatric hospitalization under the Rodriguez act I will do first opinion request second opinion. I feel she does not have capacity I will ask for health care surrogate and guardian advocate. Hospitalist consult will us, will have PT and OT consult will S. Considering the poor outcome of the past discharge need to consider a more safe and secure placement for this lady. Review of Systems ROS Limitations: Clinical Condition, Altered Mental Status Past Psych History Psychological trauma history Unknown at this time Violence risk - others (6 mos) Low Violence risk - self (6 mos) Low, except perhaps by self neglect Substance Abuse History Drugs/Alcohol past 12 months Patient denies Past Family Social History Coded Allergies: morphine (Unverified Allergy, Severe, TROUBLE BREATHING, 10/03/17) Active Scripts Cephalexin (Keflex) 500 Mg Cap, 500 MG PO Q12H for Infection for 7 Days, #14 CAP 0 Refills Prov:Stanley Epps MD 10/03/17 Quetiapine (Quetiapine) 50 Mg Tab, 50 MG PO BID for health, #60 TAB 0 Refills Prov:Reji Singh MD 10/03/17 Levetiracetam (Keppra) 500 Mg Tab, 500 MG PO Q12HR for Control Seizures for 30 Days, #60 TAB Prov:Reji Singh MD 10/03/17 Misc. Devices (Roller Walker) 1 Mis Mis, 1 EA .ROUTE NOW, #1 EA Prov:Ld Gilbert MD 06/04/16 Current Medications Medications (Trade) Dose Ordered Sig/Marcos Route Start Time Stop Time Status Last Admin (Keppra) 500 mg BID PO 10/11/17 09:00 10/11/17 09:02 (SEROquel) 50 mg BID PO 10/11/17 09:00 (Tylenol) 650 mg Q4H PRN PO 10/10/17 23:30 (Milk Of Magnesia Liq) 30 ml DAILY PRN PO 10/10/17 23:30 (Mag-Al Plus Susp Liq) 30 ml Q6H PRN PO 10/10/17 23:30 (Habitrol 21 Mg Patch.24 Hr) 1 patch DAILY T-DERMAL 10/11/17 09:00 Miscellaneous Information 1 HS T-DERMAL 10/11/17 21:00 (Lexapro) 10 mg DAILY PO 10/12/17 09:00 UNV (Keppra) 500 mg Q12HR PO 10/11/17 21:00 UNV Non-Formulary Medication 50 mg BID PO 10/11/17 21:00 UNV Family Psych History Unknown at this time Social History Patient living with cousin Patient's Strengths (min. 2) Patient verbal able access healthcare Physical Exam Patient medically cleared ED at the present time patient sitting quietly Kalyani chair she is in no acute distress, no respiratory distress, no complaints of chest pain or abdominal pain Vital Signs Vital Signs Date Time Temp Pulse Resp B/P (MAP) Pulse Ox O2 Delivery O2 Flow Rate FiO2 10/11/17 05:32 97.7 72 20 164/82 (109) 95 10/10/17 20:16 Room Air Lab Results Test 10/10/17 20:33 10/10/17 21:01 White Blood Count 4.3 TH/MM3 Red Blood Count 5.22 MIL/MM3 Hemoglobin 14.6 GM/DL Hematocrit 44.4 % Mean Corpuscular Volume 84.9 FL Mean Corpuscular Hemoglobin 27.9 PG Mean Corpuscular Hemoglobin Concent 32.9 % Red Cell Distribution Width 14.7 % Platelet Count 132 TH/MM3 Mean Platelet Volume 8.5 FL Neutrophils (%) (Auto) 71.6 % Lymphocytes (%) (Auto) 18.6 % Monocytes (%) (Auto) 9.0 % Eosinophils (%) (Auto) 0.5 % Basophils (%) (Auto) 0.3 % Neutrophils # (Auto) 3.1 TH/MM3 Lymphocytes # (Auto) 0.8 TH/MM3 Monocytes # (Auto) 0.4 TH/MM3 Eosinophils # (Auto) 0.0 TH/MM3 Basophils # (Auto) 0.0 TH/MM3 CBC Comment DIFF FINAL Differential Comment Blood Urea Nitrogen 18 MG/DL Creatinine 0.79 MG/DL Random Glucose 65 MG/DL Total Protein 9.1 GM/DL Albumin 3.2 GM/DL Calcium Level 9.3 MG/DL Alkaline Phosphatase 61 U/L Aspartate Amino Transf (AST/SGOT) 30 U/L Alanine Aminotransferase (ALT/SGPT) 16 U/L Total Bilirubin 0.9 MG/DL Sodium Level 143 MEQ/L Potassium Level 3.9 MEQ/L Chloride Level 102 MEQ/L Carbon Dioxide Level 24.4 MEQ/L Anion Gap 17 MEQ/L Estimat Glomerular Filtration Rate 87 ML/MIN Thyroid Stimulating Hormone 3rd Gen 1.470 uIU/ML Salicylates Level LESS THAN 1.7 MG/DL Acetaminophen Level LESS THAN 2.0 MCG/ML Ethyl Alcohol Level LESS THAN 3 MG/DL Urine Color YELLOW Urine Turbidity CLEAR Urine pH 5.5 Urine Specific Hunter 1.019 Urine Protein NEG mg/dL Urine Glucose (UA) NEG mg/dL Urine Ketones 40 mg/dL Urine Occult Blood NEG Urine Nitrite NEG Urine Bilirubin NEG Urine Urobilinogen 2.0 MG/DL Urine Leukocyte Esterase NEG Urine RBC 1 /hpf Urine WBC 2 /hpf Urine Squamous Epithelial Cells 1 /hpf Urine Hyaline Casts 5 /lpf Urine Mucus MOD /lpf Microscopic Urinalysis Comment CATH-CULT NOT IND Urine Opiates Screen NEG Urine Barbiturates Screen NEG Urine Amphetamines Screen NEG Urine Benzodiazepines Screen NEG Urine Cocaine Screen NEG Urine Cannabinoids Screen NEG Mental Status Examination Appearance: Disheveled Consciousness: Alert Orientation: Person, Place (Vaguely) Motor Activity: Normal gait (Patient in Kalyani chair) Speech: Hesitant (Mumbling), Stuttering Language: Adequate Fund of Knowledge: Inadequate Attention and Concentration: Easily Distracted Memory: Impaired Mood: Sad Affect: Other (Decreased range and intensity) Thought Process & Associations: Linear Thought Content: Other (Disorganized) Hallucination Type: None Delusion Type: None (Vigilant) Suicidal Ideation: No Suicidal Plan: No Suicidal Intention: No Homicidal Ideation: No Homicidal Plan: No Homicidal Intention: No Insight: Poor Judgment: Poor Assessment & Plan Problem List: (1) DEMENTIA IN OTH DISEASES CLASSD ELSWHR W BEHAVIORAL DISTURB ICD Codes: F02.81 - DEMENTIA IN OTH DISEASES CLASSD ELSWHR W BEHAVIORAL DISTURB (2) ALZHEIMER'S DISEASE WITH LATE ONSET ICD Codes: G30.1 - ALZHEIMER'S DISEASE WITH LATE ONSET Assessment & Plan Estimated LOS: 5-7 days patient meets criteria for further involuntary psychiatric hospitalization under the Rodriguez act L the first opinion request second opinion I feel she does not have capacity we will ask for health care surrogate and guardian advocate. We will consult with hospitalist, we will consult with PT and OT. Consult with family related to placement issues Discharge Planning To be determined Request HC Surrog/Guard Advoc?: Yes Jono Gabriel MD October 11, 2017 09:38
[2017-10-11 16:43] VITALS: BP 119/78; PULSE 70; RESP 16; TEMP 98.3; O2SAT 98
[2017-10-11] MEDS: REMOVE OLD NICOTINE PATCH T-DERMAL SCH (21:00)
[2017-10-11] MEDS ORDERED: QUEtiapine FUMARATE 25 MG TAB PO SCH (21:00)
[2017-10-11] MEDS ORDERED: levETIRAcetam 500 MG TAB PO SCH (21:00)
[2017-10-12 06:03] VITALS: BP 140/86; PULSE 62; RESP 16; TEMP 98.1
[2017-10-12] MEDS: ESCITALOPRAM OXALATE 10 MG TAB PO SCH (09:00)
[2017-10-12] MEDS: NICOTINE 21 MG/24 HR PATCH T-DERMAL SCH (09:00)
[2017-10-12] MEDS: QUEtiapine FUMARATE 25 MG TAB PO SCH ×2 (09:00→21:00)
[2017-10-12] MEDS: levETIRAcetam 500 MG TAB PO SCH ×2 (09:00→21:00)
[2017-10-12 09:17] LABS: BICARBONATE 29.3 MEQ/L (21.0-32.0); BLOOD UREA NITROGEN 30 MG/DL (7-18); CALCIUM 9.5 MG/DL (8.5-10.1); CHLORIDE 103 MEQ/L (98-107); CHOLESTEROL 171 MG/DL (120-200); CHOLESTEROL/ HDL RATIO 5.66 RATIO; CREATININE 0.77 MG/DL (0.50-1.00); GLOMERULAR FILTRATION RATE 90 ML/MIN (>89); GLUCOSE,RANDOM 82 MG/DL (74-106); HDL CHOLESTEROL 30.2 MG/DL (40.0-60.0); LDL CHOLESTEROL 125 MG/DL (0-99); SODIUM (NA) 142 MEQ/L (136-145); TRIGLYCERIDES 81 MG/DL (42-150)
--- NOTE | 2017-10-12 10:04 | HHI.PYPN ---
Subjective Remarks Patient seen in her room with nurse Israel, chart reviewed, patient refusing medications at this time. She still remains vigilant somewhat irritable though feels that she may be being poisoned at this time. For now continue treatment Review of Systems Except as stated in HPI: all other systems reviewed are Neg Mental Status Examination Appearance: Disheveled Consciousness: Alert Orientation: Person, Place (Vaguely) Motor Activity: Normal gait (Patient in Kalyani chair) Speech: Hesitant (Mumbling), Stuttering Language: Adequate Fund of Knowledge: Inadequate Attention and Concentration: Easily Distracted Memory: Impaired Mood: Sad Affect: Other (Decreased range and intensity) Thought Process & Associations: Linear Thought Content: Other (Disorganized) Hallucination Type: None Delusion Type: None (Vigilant) Suicidal Ideation: No Suicidal Plan: No Suicidal Intention: No Homicidal Ideation: No Homicidal Plan: No Homicidal Intention: No Insight: Poor Judgment: Poor Results Labs Test 10/12/17 07:33 Blood Urea Nitrogen 30 MG/DL Creatinine 0.77 MG/DL Random Glucose 82 MG/DL Calcium Level 9.5 MG/DL Sodium Level 142 MEQ/L Potassium Level 3.4 MEQ/L Chloride Level 103 MEQ/L Carbon Dioxide Level 29.3 MEQ/L Anion Gap 10 MEQ/L Estimat Glomerular Filtration Rate 90 ML/MIN Triglycerides Level 81 MG/DL Cholesterol Level 171 MG/DL LDL Cholesterol 125 MG/DL HDL Cholesterol 30.2 MG/DL Cholesterol/HDL Ratio 5.66 RATIO Vitals/IOs Vital Signs Date Time Temp Pulse Resp B/P (MAP) Pulse Ox O2 Delivery O2 Flow Rate FiO2 10/12/17 06:03 98.1 62 16 140/86 (104) 10/11/17 16:43 98 10/10/17 20:16 Room Air Assessment & Plan Problem List: (1) DEMENTIA IN OTH DISEASES CLASSD ELSWHR W BEHAVIORAL DISTURB ICD Codes: F02.81 - DEMENTIA IN OTH DISEASES CLASSD ELSWHR W BEHAVIORAL DISTURB (2) ALZHEIMER'S DISEASE WITH LATE ONSET ICD Codes: G30.1 - ALZHEIMER'S DISEASE WITH LATE ONSET Assessment & Plan Estimated LOS: days patient continues confused and disoriented mixed compliance medication, for now continue treatment Justification for Cont. Inpt. At this time patient would decompensate a place to a lower level of care Discharge Planning To be determined Request HC Surrog/Guard Advoc?: Yes Caliendo,Jono E. MD Oct 12, 2017 10:04
--- NOTE | 2017-10-12 16:07 | PD.PSY.CON ---
Provisional Diagnosis Admission Date October 10, 2017 at 22:32 [place] I. Dementia with behavioral disturbances History of Present Illness Service Psychiatry Consult Requested By Psychiatry Reason for Consult Second opinion Primary Care Physician Unknown HPI Patient is a 71-year-old female who comes here under a Rodriguez act by the [place] [employer] dated 10/10/17 at 023 8 PM that document reviewed it states essentially Juarez has not eaten or had any water in 3 days range refuses to eat or to bathe she has been in a soiled bed for 3 days. Family believes that if she does not take care of herself or refuses to be taking care of that she will might care for herself patient seen and screened in the ED urine toxicology negative blood alcohol level negative. Patient medically cleared and transferred to the unit. At the present time patient sitting quietly in Kalyani chair in the dayroom RN present throughout session patient is an alert -Ecuadorean female appears her stated age she is confused as to location though she knows she is in [place] from [place] she feels is 2011, she does not know the month or the situation. She is vague about her living situation is vague about the events got her to this hospital. Of interest patient was hospitalized here 09/25/17 through 10/04/79 under visit [id number]. She was told by Dr. Singh at that time. She was discharged to her cousin's home. Leading to the above behaviors. The readmission. Patient does deny suicidality homicidality voices or visions. At this time patient does meet criteria for further psychiatric hospitalization under the Rodriguez act I will do first opinion request second opinion. I feel she does not have capacity I will ask for health care surrogate and guardian advocate. Hospitalist consult will us, will have PT and OT consult will S. Considering the poor outcome of the past discharge need to consider a more safe and secure placement for this lady. The patient is a 71 years old -Ecuadorean woman, who came to the hospital on the Rodriguez act due to self neglecting behavior, the patient has been refusing to eat and to take care of herself. She was consulted to me for second opinion. On the evaluation the patient is found in her bed. The patient seems to be quite oppositional, defiant, refusing to answer my questions. She says that she is fine, but does answer any further questions. She does not seem to be in acute distress or in pain. Past Family Social History Coded Allergies: morphine (Unverified Allergy, Severe, TROUBLE BREATHING, 10/03/17) Active Scripts Cephalexin (Keflex) 500 Mg Cap, 500 MG PO Q12H for Infection for 7 Days, #14 CAP 0 Refills Prov:Stanley Epps MD 10/03/17 Quetiapine (Quetiapine) 50 Mg Tab, 50 MG PO BID for health, #60 TAB 0 Refills Prov:Reji Singh MD 10/03/17 Levetiracetam (Keppra) 500 Mg Tab, 500 MG PO Q12HR for Control Seizures for 30 Days, #60 TAB Prov:Reji Singh MD 10/03/17 Misc. Devices (Roller Walker) 1 Mis Mis, 1 EA .ROUTE NOW, #1 EA Prov:Ld Gilbert MD 06/04/16 Current Medications Medications (Trade) Dose Ordered Sig/Marcos Route Start Time Stop Time Status Last Admin (Keppra) 500 mg BID PO 10/11/17 09:00 10/11/17 09:02 (SEROquel) 50 mg BID PO 10/11/17 09:00 (Tylenol) 650 mg Q4H PRN PO 10/10/17 23:30 (Milk Of Magnesia Liq) 30 ml DAILY PRN PO 10/10/17 23:30 (Mag-Al Plus Susp Liq) 30 ml Q6H PRN PO 10/10/17 23:30 (Habitrol 21 Mg Patch.24 Hr) 1 patch DAILY T-DERMAL 10/11/17 09:00 Miscellaneous Information 1 HS T-DERMAL 10/11/17 21:00 (Lexapro) 10 mg DAILY PO 10/12/17 09:00 Patient's Strengths (min. 2) Patient verbal able access healthcare Physical Exam Vital Signs Vital Signs Date Time Temp Pulse Resp B/P (MAP) Pulse Ox O2 Delivery O2 Flow Rate FiO2 10/12/17 06:03 98.1 62 16 140/86 (104) 10/11/17 16:43 98 10/10/17 20:16 Room Air Lab Results Test 10/12/17 07:33 Blood Urea Nitrogen 30 MG/DL Creatinine 0.77 MG/DL Random Glucose 82 MG/DL Calcium Level 9.5 MG/DL Sodium Level 142 MEQ/L Potassium Level 3.4 MEQ/L Chloride Level 103 MEQ/L Carbon Dioxide Level 29.3 MEQ/L Anion Gap 10 MEQ/L Estimat Glomerular Filtration Rate 90 ML/MIN Triglycerides Level 81 MG/DL Cholesterol Level 171 MG/DL LDL Cholesterol 125 MG/DL HDL Cholesterol 30.2 MG/DL Cholesterol/HDL Ratio 5.66 RATIO Mental Status Examination Appearance: Disheveled Consciousness: Alert Orientation: Person, Place (Vaguely) Motor Activity: Normal gait (Patient in Kalyani chair) Speech: Hesitant (Mumbling), Stuttering Language: Adequate Fund of Knowledge: Inadequate Attention and Concentration: Easily Distracted Memory: Impaired Mood: Sad Affect: Other (Decreased range and intensity) Thought Process & Associations: Linear Thought Content: Other (Disorganized) Hallucination Type: None Delusion Type: None (Vigilant) Suicidal Ideation: No Suicidal Plan: No Suicidal Intention: No Homicidal Ideation: No Homicidal Plan: No Homicidal Intention: No Insight: Poor Judgment: Poor Assessment & Plan Problem List: (1) DEMENTIA IN OTH DISEASES CLASSD ELSWHR W BEHAVIORAL DISTURB ICD Codes: F02.81 - DEMENTIA IN OTH DISEASES CLASSD ELSWHR W BEHAVIORAL DISTURB Assessment & Plan: I have seen and examined this patient, reviewed documentation, I agree and concur with Dr. Gabriel's assessment and plan. (2) ALZHEIMER'S DISEASE WITH LATE ONSET ICD Codes: G30.1 - ALZHEIMER'S DISEASE WITH LATE ONSET Assessment & Plan Estimated LOS: days Request HC Surrog/Guard Advoc?: Yes Italo Perea MD Oct 12, 2017 16:07
[2017-10-12 17:37] LABS: HEMOGLOBIN A1C 5.7 % (4.3-6.0)
[2017-10-12] MEDS: REMOVE OLD NICOTINE PATCH T-DERMAL SCH (21:00)
[2017-10-13 06:17] VITALS: BP 170/90; PULSE 50; RESP 17; TEMP 97.1; O2SAT 100
[2017-10-13] MEDS: levETIRAcetam 500 MG TAB PO SCH ×2 (09:00→20:32)
[2017-10-13] MEDS: NICOTINE 21 MG/24 HR PATCH T-DERMAL SCH (09:00)
[2017-10-13] MEDS: ESCITALOPRAM OXALATE 10 MG TAB PO SCH (09:00)
[2017-10-13] MEDS: QUEtiapine FUMARATE 25 MG TAB PO SCH ×2 (09:00→20:32)
[2017-10-13] MEDS ORDERED: POTASSIUM CHLORIDE 25 MEQ EFFERVESCENT TAB PO ONE (11:15)
[2017-10-13 11:22] VITALS: BP 158/89; PULSE 79; RESP 18
--- NOTE | 2017-10-13 11:46 | PD.CONS ---
HPI Service [facility] Hospitalists Consult Requested By Dr. Gabriel Reason for Consult Medical management Primary Care Physician Unknown Diagnoses: History of Present Illness 71-year-old female with past medical history of HTN, DM, subarachnoid hemorrhage , and seizure disorder who presents to the emergency department under Rodriguez act after patient was at home not drinking for the past 3 days. Patient was also noted to be lying in swelling bed for the past 3 days, concern over patient's well-being thus she was Rodriguez acted and brought to [place] for psychiatric evaluation. Patient is seen and examined in her room with nurse at bedside. She is awake, alert, oriented to self, year, and location. She is requesting to go to the bathroom however with staff present is refusing to get out of bed. She repeatedly states that if she goes into the bathroom she will not come out with clothing. She also makes mention over the toilet although unclear what she is trying to say. When asked if she is having any fevers, chills, nausea, vomiting, diarrhea, headaches, dizziness, shortness of breath, cough or chest pain patient does not respond to questions. She is a very poor historian. Nursing staff reports that patient has been refusing medications and meals, did manage to drink water today. Review of Systems Except as stated in HPI: all other systems reviewed are Neg Past Family Social History Allergies: Coded Allergies: morphine (Unverified Allergy, Severe, TROUBLE BREATHING, 10/03/17) Past Medical History Past medical and surgical history obtained from review of EMR Hypertension Diabetes mellitus type 2 Seizure disorder Subarachnoid hemorrhage 2008 Past Surgical History Evacuation of subarachnoid hemorrhage in 2008 Reported Medications Reported Meds & Active Scripts Active Keflex (Cephalexin) 500 Mg Cap 500 Mg PO Q12H 7 Days Quetiapine (Quetiapine Fumarate) 50 Mg Tab 50 Mg PO BID Keppra (Levetiracetam) 500 Mg Tab 500 Mg PO Q12HR 30 Days Roller Walker (Misc. Devices) 1 Mis Mis 1 Ea .ROUTE NOW Active Ordered Medications Current Medications Medications (Trade) Dose Ordered Sig/Marcos Route Start Time Stop Time Status Last Admin (Keppra) 500 mg BID PO 10/11/17 09:00 10/11/17 09:02 (SEROquel) 50 mg BID PO 10/11/17 09:00 (Tylenol) 650 mg Q4H PRN PO 10/10/17 23:30 (Milk Of Magnesia Liq) 30 ml DAILY PRN PO 10/10/17 23:30 (Mag-Al Plus Susp Liq) 30 ml Q6H PRN PO 10/10/17 23:30 (Habitrol 21 Mg Patch.24 Hr) 1 patch DAILY T-DERMAL 10/11/17 09:00 Miscellaneous Information 1 HS T-DERMAL 10/11/17 21:00 (Lexapro) 10 mg DAILY PO 10/12/17 09:00 Family History Mother: [place] Father: CVA Social History No documented history of tobacco, alcohol, or illicit drug use. Physical Exam Vital Signs Vital Signs Date Time Temp Pulse Resp B/P (MAP) Pulse Ox O2 Delivery O2 Flow Rate FiO2 10/13/17 11:22 79 18 158/89 (112) 10/13/17 06:17 97.1 50 17 170/90 (116) 100 Physical Exam GENERAL: Well-developed obese AA female in no apparent distress. SKIN: No rashes, ecchymoses or lesions. Cool and dry. HEAD: Atraumatic. Normocephalic. EYES: Pupils equal round. Extraocular motions intact. No scleral icterus. No injection or drainage. ENT: Nose without bleeding, purulent drainage. Airway patent. NECK: Trachea midline. No JVD. Supple. CARDIOVASCULAR: Regular rate and rhythm without murmurs, gallops, or rubs. RESPIRATORY: Clear to auscultation. Breath sounds equal bilaterally. No wheezes , rales, or rhonchi. GASTROINTESTINAL: Abdomen soft, non-tender, nondistended, obese. No palpable masses. No guarding. Hypoactive bowel sounds. MUSCULOSKELETAL: Extremities without clubbing, cyanosis, or edema. No joint tenderness, effusion, or edema noted. No calf tenderness. NEUROLOGICAL: Awake and alert, oriented to self, place, and year. Cranial nerves II through XII grossly intact. Motor and sensory grossly within normal limits. Does not participate in strength testing. Normal speech. Result Diagram: 10/10/17203210/12/17 0733 Assessment and Plan Assessment and Plan 71-year-old female with past medical history of HTN, DM, subarachnoid hemorrhage , and seizure disorder who presents to the emergency department under Rodriguez act after patient was at home not drinking for the past 3 days. Patient was also noted to be lying in swelling bed for the past 3 days, concern over patient's well-being thus she was Rodriguez acted and brought to [place] for psychiatric evaluation. Dementia/Alzheimer's with behavioral disturbances Self-neglect -Treatment plan per psychiatry -Patient continues to refuse medications, drinking some amounts of fluid. -We will check labs tomorrow to follow renal function and hydration status. If needed transfer to med psych for IV hydration. Hx seizure disorder -Continue on Keppra 500 mg every 12 hours - Patient refusing, seizure precautions, fall precautions. - Monitor closely, if needed transfer to [facility]. Hypertension - Fluctuating, will continue to follow and if still high start on low dose Norvasc Diabetes type 2 diet controlled -Hemoglobin A1C 5.7, no ISS since patient not eating. Hypokalemia -Potassium level on 10/12 was 3.4, replaced with KCl p.o. Discussed with patient importance of medications. Thrombocytopenia, appear chronic -Outpatient follow-up with hematology DVT prophylaxis-ambulation Discussed with patient and nurse. Thank you for this consultation, will continue to follow along. Rhys Moreno Oct 13, 2017 11:46
--- NOTE | 2017-10-13 16:47 | HHI.PYPN ---
Subjective Remarks Patient was seen and case discussed with nursing. Patient is oppositional with exam. Speaking in a soft low tone with poor eye contact. She continues to refuse to eat and refuses Ensure. Per nursing, she believes her food is poisoned which she does not endorse for this interview. Likely responding to internal stimuli Mental Status Examination Appearance: Disheveled Consciousness: Alert Orientation: Person, Place (Vaguely) Motor Activity: Normal gait (Patient in Kalyani chair) Speech: Hesitant (Mumbling), Stuttering Language: Adequate Fund of Knowledge: Inadequate Attention and Concentration: Easily Distracted Memory: Impaired Mood: Sad, Oppositional Affect: Other (Decreased range and intensity) Thought Process & Associations: Linear Thought Content: Other (Disorganized) Hallucination Type: None Delusion Type: None (Vigilant) Suicidal Ideation: No Suicidal Plan: No Suicidal Intention: No Homicidal Ideation: No Homicidal Plan: No Homicidal Intention: No Insight: Poor Judgment: Poor Results Vitals/IOs Vital Signs Date Time Temp Pulse Resp B/P (MAP) Pulse Ox O2 Delivery O2 Flow Rate FiO2 10/13/17 11:22 79 18 158/89 (112) 10/13/17 06:17 97.1 100 10/10/17 20:16 Room Air Intake and Output 10/13/17 10/13/17 10/14/17 08:00 16:00 00:00 Intake Total 0 ml Balance 0 ml Assessment & Plan Problem List: (1) DEMENTIA IN OTH DISEASES CLASSD ELSWHR W BEHAVIORAL DISTURB ICD Codes: F02.81 - DEMENTIA IN OTH DISEASES CLASSD ELSWHR W BEHAVIORAL DISTURB (2) ALZHEIMER'S DISEASE WITH LATE ONSET ICD Codes: G30.1 - ALZHEIMER'S DISEASE WITH LATE ONSET Assessment & Plan Continue current treatment plan Justification for Cont. Inpt. Patient would decompensate in a less restrictive setting Request HC Surrog/Guard Advoc?: Yes Yong Pearce DO Oct 13, 2017 16:47
[2017-10-13 17:45] VITALS: BP 174/82; PULSE 62; RESP 16; TEMP 97.6; O2SAT 99
[2017-10-13] MEDS: REMOVE OLD NICOTINE PATCH T-DERMAL SCH (20:32)
[2017-10-14 06:39] VITALS: BP 146/91; PULSE 78; RESP 18; TEMP 97.4; O2SAT 94
[2017-10-14 07:31] LABS: BICARBONATE 30.1 MEQ/L (21.0-32.0); CALCIUM 8.9 MG/DL (8.5-10.1); CREATININE 0.72 MG/DL (0.50-1.00)
[2017-10-14] MEDS: QUEtiapine FUMARATE 25 MG TAB PO SCH ×2 (09:00→21:00)
[2017-10-14] MEDS: NICOTINE 21 MG/24 HR PATCH T-DERMAL SCH (09:00)
[2017-10-14] MEDS: ESCITALOPRAM OXALATE 10 MG TAB PO SCH (09:00)
[2017-10-14] MEDS: levETIRAcetam 500 MG TAB PO SCH ×2 (09:00→21:00)
[2017-10-14] MEDS: amLODIPine BESYLATE 5 MG TAB PO SCH (10:00)
--- NOTE | 2017-10-14 10:59 | HHI.PR ---
Subjective Remarks Follow-up visit for HTN and DM. Nurse does not report any acute events overnight or this am. Patient is seen and evaluated in chair out in the day room. She states "I don't want to talk". Patient also refuses medical examination, no complaints voiced to me. Staff states patient still not eating, but drinking fluids. Objective Vitals Vital Signs Date Time Temp Pulse Resp B/P (MAP) Pulse Ox O2 Delivery O2 Flow Rate FiO2 10/14/17 06:39 97.4 78 18 146/91 (109) 94 10/13/17 17:45 97.6 62 16 174/82 (112) 99 10/13/17 11:22 79 18 158/89 (112) I/O 10/13/17 10/13/17 10/13/17 10/14/17 10/14/17 10/14/17 07:00 15:00 23:00 07:00 15:00 23:00 Intake Total 0 ml 240 ml 360 ml Balance 0 ml 240 ml 360 ml Intake Oral 0 ml 240 ml 360 ml # Voids 1 4 3 # Bowel Movements 0 Result Diagram: 10/10/17203210/14/17 0558 Objective Remarks GENERAL: Obese AA female in no apparent distress. HEAD: Atraumatic. MUSCULOSKELETAL: Sitting up in chair, moves all extremities with no visible weakness. NEUROLOGICAL: Awake and alert. Speech is clear. Refuses medical exam. A/P Assessment and Plan 71-year-old female with past medical history of HTN, DM, subarachnoid hemorrhage , and seizure disorder who presents to the emergency department under Rodriguez act after patient was at home not drinking for the past 3 days. Patient was also noted to be lying in swelling bed for the past 3 days, concern over patient's well-being thus she was Rodriguez acted and brought to [place] for psychiatric evaluation. Dementia/Alzheimer's with behavioral disturbances -Treatment plan per psychiatry Self-neglect Poor PO intake -Patient continues to refuse medications, drinking some amounts of fluid, will add Ensure shake to meals. -Labs this am with improved BUN, continue to encourage PO intake. Hx seizure disorder -Continue on Keppra 500 mg every 12 hours - Patient refusing, seizure precautions, fall precautions. - Monitor closely, if needed transfer to [facility]psych. Hypertension - Fluctuating, Start on low dose Norvasc, patient noncompliant with medications. Diabetes type 2 diet controlled -Hemoglobin A1C 5.7, no ISS since patient not eating. Hypokalemia, resolved Thrombocytopenia, appear chronic -Outpatient follow-up with hematology DVT prophylaxis-ambulation Discussed with nurse. Rhys Moreno Oct 14, 2017 10:59
--- NOTE | 2017-10-14 12:02 | HHI.PYPN ---
Subjective Remarks Patient was seen and case discussed with nursing. Patient is oppositional during the interview. Poor eye contact and not answering questions appropriately. Continues to have poor p.o. intake. Seclusive to self Mental Status Examination Appearance: Disheveled Consciousness: Alert Orientation: Person, Place (Vaguely) Motor Activity: Normal gait (Patient in Aklyani chair) Speech: Hesitant (Mumbling), Stuttering Language: Adequate Fund of Knowledge: Inadequate Attention and Concentration: Easily Distracted Memory: Impaired Mood: Sad, Oppositional Affect: Other (Decreased range and intensity) Thought Process & Associations: Linear Thought Content: Depersonalization Hallucination Type: None Delusion Type: None (Vigilant) Suicidal Ideation: No Suicidal Plan: No Suicidal Intention: No Homicidal Ideation: No Homicidal Plan: No Homicidal Intention: No Insight: Poor Judgment: Poor Results Labs Test 10/14/17 05:58 Blood Urea Nitrogen 19 MG/DL Creatinine 0.72 MG/DL Random Glucose 83 MG/DL Calcium Level 8.9 MG/DL Sodium Level 140 MEQ/L Potassium Level 4.0 MEQ/L Chloride Level 100 MEQ/L Carbon Dioxide Level 30.1 MEQ/L Anion Gap 10 MEQ/L Estimat Glomerular Filtration Rate 97 ML/MIN Vitals/IOs Vital Signs Date Time Temp Pulse Resp B/P (MAP) Pulse Ox O2 Delivery O2 Flow Rate FiO2 10/14/17 06:39 97.4 78 18 146/91 (109) 94 10/10/17 20:16 Room Air Intake and Output 10/14/17 10/14/17 10/15/17 08:00 16:00 00:00 Intake Total 0 ml Balance 0 ml Assessment & Plan Problem List: (1) DEMENTIA IN OTH DISEASES CLASSD ELSWHR W BEHAVIORAL DISTURB ICD Codes: F02.81 - DEMENTIA IN OTH DISEASES CLASSD ELSWHR W BEHAVIORAL DISTURB (2) ALZHEIMER'S DISEASE WITH LATE ONSET ICD Codes: G30.1 - ALZHEIMER'S DISEASE WITH LATE ONSET Assessment & Plan Continue current treatment plan Justification for Cont. Inpt. Patient would decompensate in a less restrictive setting Request HC Surrog/Guard Advoc?: Yes Yong Pearce DO Oct 14, 2017 12:01
[2017-10-14] MEDS: REMOVE OLD NICOTINE PATCH T-DERMAL SCH (21:00)
[2017-10-15 05:31] VITALS: BP 159/103; PULSE 79; RESP 18; O2SAT 94
[2017-10-15] MEDS: NICOTINE 21 MG/24 HR PATCH T-DERMAL SCH (09:00)
[2017-10-15] MEDS: QUEtiapine FUMARATE 25 MG TAB PO SCH ×2 (09:00→20:57)
[2017-10-15] MEDS: levETIRAcetam 500 MG TAB PO SCH ×2 (09:00→20:56)
[2017-10-15] MEDS: amLODIPine BESYLATE 5 MG TAB PO SCH (09:00)
[2017-10-15] MEDS: ESCITALOPRAM OXALATE 10 MG TAB PO SCH (09:00)
--- NOTE | 2017-10-15 12:36 | HHI.PR ---
Subjective Remarks Nursing denies any deterioration since last night. No new complaints. Objective Vital Signs Date Time Temp Pulse Resp B/P (MAP) Pulse Ox O2 Delivery O2 Flow Rate FiO2 10/15/17 05:31 79 18 159/103 (121) 94 10/14/17 15:09 I/O 10/14/17 10/14/17 10/14/17 10/15/17 10/15/17 10/15/17 07:00 15:00 23:00 07:00 15:00 23:00 Intake Total 360 ml 60 ml 0 ml Balance 360 ml 60 ml 0 ml Intake Oral 360 ml 60 ml 0 ml # Voids 3 Result Diagram: 10/14/17 0558 A/P Assessment and Plan 71-year-old female with past medical history of HTN, DM, subarachnoid hemorrhage , and seizure disorder who presents to the emergency department under Rodriguez act after patient was at home not drinking for the past 3 days. Patient was also noted to be lying in swelling bed for the past 3 days, concern over patient's well-being thus she was Rodriguez acted and brought to [place] for psychiatric evaluation. Dementia/Alzheimer's with behavioral disturbances -Treatment plan per psychiatry Self-neglect Poor PO intake -Patient continues to refuse medications, drinking some amounts of fluid, Ensure shake to meals. check bmp in 2 days. Hx seizure disorder -Continue on Keppra - Patient refusing, seizure precautions, fall precautions. Hypertension - norvasc, uncontrolled bc pt is refusing Diabetes type 2 diet controlled -Hemoglobin A1C 5.7, no ISS since patient not eating. Thrombocytopenia, appear chronic -Outpatient follow-up with hematology Miguelito Catalan MD Oct 15, 2017 12:36
--- NOTE | 2017-10-15 14:04 | HHI.PYPN ---
Subjective Remarks Patient seen in her room with nurse Татьяна, patient laying quietly in bed with covers to her chin. Patient remained somewhat diffusely confused. Though did recognize me as her nurse. Chart reviewed. Patient noncompliant with all medication. However patient does acknowledge auditory hallucinations stating they "will not go away" we will add Zyprexa 2.5 mg p.o. twice daily and if she refuses Zyprexa 2.[address] IM [address] its [address], only with permission of healthcare surrogate/guardian advocate Review of Systems Except as stated in HPI: all other systems reviewed are Neg Mental Status Examination Appearance: Disheveled Consciousness: Alert Orientation: Person, Place (Vaguely) Motor Activity: Normal gait (Patient in Kalyani chair) Speech: Hesitant (Mumbling), Stuttering Language: Adequate Fund of Knowledge: Inadequate Attention and Concentration: Easily Distracted Memory: Impaired Mood: Sad, Oppositional Affect: Other (Decreased range and intensity) Thought Process & Associations: Linear Thought Content: Depersonalization Hallucination Type: None Delusion Type: None (Vigilant) Suicidal Ideation: No Suicidal Plan: No Suicidal Intention: No Homicidal Ideation: No Homicidal Plan: No Homicidal Intention: No Insight: Poor Judgment: Poor Results Vitals/IOs Vital Signs Date Time Temp Pulse Resp B/P (MAP) Pulse Ox O2 Delivery O2 Flow Rate FiO2 10/15/17 05:31 79 18 159/103 (121) 94 10/14/17 06:39 97.4 Intake and Output 10/15/17 10/15/17 10/16/17 08:00 16:00 00:00 Intake Total 0 ml Balance 0 ml Assessment & Plan Problem List: (1) DEMENTIA IN OTH DISEASES CLASSD ELSWHR W BEHAVIORAL DISTURB ICD Codes: F02.81 - DEMENTIA IN OTH DISEASES CLASSD ELSWHR W BEHAVIORAL DISTURB (2) ALZHEIMER'S DISEASE WITH LATE ONSET ICD Codes: G30.1 - ALZHEIMER'S DISEASE WITH LATE ONSET Assessment & Plan Estimated LOS: days patient remained psychotic and confused and disoriented. Continues noncompliant on medication. She medication adjustments above Justification for Cont. Inpt. At this time patient would decompensate a place to the lower level of care Discharge Planning To be determined Request HC Surrog/Guard Advoc?: Yes Jono Gabriel MD Oct 15, 2017 14:04
[2017-10-15] MEDS: REMOVE OLD NICOTINE PATCH T-DERMAL SCH (20:57)
[2017-10-15] MEDS: OLANZapine 2.5 MG TAB PO SCH (20:57)
[2017-10-15] MEDS: OLANZapine IM 10 MG VIAL IM PRN (21:46)
[2017-10-16 06:06] VITALS: BP 154/89; PULSE 79; RESP 16; O2SAT 92
[2017-10-16] MEDS: QUEtiapine FUMARATE 25 MG TAB PO SCH ×3 (08:32→21:00)
[2017-10-16] MEDS: levETIRAcetam 500 MG TAB PO SCH ×3 (08:33→21:00)
[2017-10-16] MEDS: OLANZapine 2.5 MG TAB PO SCH ×2 (08:33→20:58)
[2017-10-16] MEDS: amLODIPine BESYLATE 5 MG TAB PO SCH (08:33)
[2017-10-16] MEDS: ESCITALOPRAM OXALATE 10 MG TAB PO SCH (08:34)
[2017-10-16] MEDS: NICOTINE 21 MG/24 HR PATCH T-DERMAL SCH (09:00)
[2017-10-16] MEDS: cloNIDine HCL 0.1 MG/24 HR PATCH T-DERMAL SCH (10:00)
--- NOTE | 2017-10-16 12:09 | HHI.PYPN ---
Subjective Remarks Patient seen in day room with nurse Brandi and medical student Charley patient continues somewhat vigilant and suspicious though calm with me today. Patient seen in day room eating lunch without difficulty. For now continue treatment Review of Systems Except as stated in HPI: all other systems reviewed are Neg Mental Status Examination Appearance: Disheveled Consciousness: Alert Orientation: Person, Place (Vaguely) Motor Activity: Normal gait (Patient in Kalyani chair) Speech: Hesitant (Mumbling), Stuttering Language: Adequate Fund of Knowledge: Inadequate Attention and Concentration: Easily Distracted Memory: Impaired Mood: Sad, Oppositional Affect: Other (Decreased range and intensity) Thought Process & Associations: Linear Thought Content: Depersonalization Hallucination Type: None Delusion Type: None (Vigilant) Suicidal Ideation: No Suicidal Plan: No Suicidal Intention: No Homicidal Ideation: No Homicidal Plan: No Homicidal Intention: No Insight: Poor Judgment: Poor Results Vitals/IOs Vital Signs Date Time Temp Pulse Resp B/P (MAP) Pulse Ox O2 Delivery O2 Flow Rate FiO2 10/16/17 06:06 79 16 154/89 (110) 92 10/14/17 06:39 97.4 Assessment & Plan Problem List: (1) DEMENTIA IN OTH DISEASES CLASSD ELSWHR W BEHAVIORAL DISTURB ICD Codes: F02.81 - DEMENTIA IN OTH DISEASES CLASSD ELSWHR W BEHAVIORAL DISTURB (2) ALZHEIMER'S DISEASE WITH LATE ONSET ICD Codes: G30.1 - ALZHEIMER'S DISEASE WITH LATE ONSET Assessment & Plan Estimated LOS: days patient continues confused demented somewhat irritable with today, eating lunch in the day room. For now continue treatment Justification for Cont. Inpt. At this time patient would decompensate if placed in a lower level of care Discharge Planning To be determined Request HC Surrog/Guard Advoc?: Yes Jono Gabriel MD Oct 16, 2017 12:09
[2017-10-16 12:44] VITALS: BP 126/73; PULSE 70; RESP 18; O2SAT 97
--- NOTE | 2017-10-16 14:07 | HHI.PR ---
Subjective Remarks Follow-up visit for HTN and DM. Patient seen today with nurse. She refused to be examined. States she is doing well. As per nursing, she had an episode today where and she is just staring at her family member like she does not recognize them but came back to being okay. As per family member, she might be having seizures. Patient is awake and alert, irritable and agitated. States that she is doing well and not to touch her because everything is making her feel bad. States the food is not good and is making her sick. And if people are touching her it makes her sick to. Patient has been refusing her BP medications, including her fingersticks Objective Vitals Vital Signs Date Time Temp Pulse Resp B/P (MAP) Pulse Ox O2 Delivery O2 Flow Rate FiO2 10/16/17 12:44 70 18 126/73 (90) 97 10/16/17 06:06 79 16 154/89 (110) 92 I/O 10/15/17 10/15/17 10/15/17 10/16/17 10/16/17 10/16/17 07:00 15:00 23:00 07:00 15:00 23:00 Intake Total 0 ml 0 ml Balance 0 ml 0 ml Intake Oral 0 ml 0 ml Result Diagram: 10/14/17 0558 Objective Remarks GENERAL: This is a well-nourished, well-developed patient, in no apparent distress. SKIN: Warm and dry. HEENT: Normocephalic. Pupils equal round and reactive. Nose without bleeding. Airway patent. NECK: Trachea midline. No JVD. Supple. MUSCULOSKELETAL: Extremities without clubbing, cyanosis. Bilateral lower extremity +1 edema, stasis NEUROLOGICAL: Awake and alert. Normal speech. Agitated, irritable. A/P Problem List: (1) ALZHEIMER'S DISEASE WITH LATE ONSET ICD Code: G30.1 - ALZHEIMER'S DISEASE WITH LATE ONSET (2) DEMENTIA IN OTH DISEASES CLASSD ELSWHR W BEHAVIORAL DISTURB ICD Code: F02.81 - DEMENTIA IN OTH DISEASES CLASSD ELSWHR W BEHAVIORAL DISTURB (3) HTN (hypertension) ICD Code: I10 - Essential (primary) hypertension Status: Chronic (4) DM (diabetes mellitus) ICD Code: E11.9 - Type 2 diabetes mellitus without complications Status: Chronic Assessment and Plan 71-year-old female with past medical history of HTN, DM, subarachnoid hemorrhage , and seizure disorder who presents to the emergency department under Rodriguez act after patient was at home not drinking for the past 3 days. Patient was also noted to be lying in swelling bed for the past 3 days, concern over patient's well-being thus she was Rodriguez acted and brought to [place] for psychiatric evaluation. Dementia/Alzheimer's with behavioral disturbances Paranoia -Treatment plan per psychiatry Self-neglect Poor PO intake -Patient continues to refuse medications, drinking some amounts of fluid, will add Ensure shake to meals. -Labs this am with improved BUN, continue to encourage PO intake. Hx seizure disorder -Continue on Keppra 500 mg every 12 hours -Patient refusing, seizure precautions, fall precautions. -Monitor closely, if needed transfer to [facility]. Hypertension -Low dose Norvasc, patient noncompliant with medications. -Patient only intermittently takes medication. Mostly refused. Clonidine patch if patient refused to take BP meds. -It will be a difficult management since patient is noncompliant and very paranoid. Diabetes type 2 diet controlled -Hemoglobin A1C 5.7, no ISS since patient not eating. Hypokalemia, resolved Thrombocytopenia, appear chronic -Outpatient follow-up with hematology DVT prophylaxis-ambulation Problem Qualifiers (1) DM (diabetes mellitus): Shanthi Betancur Oct 16, 2017 14:07
[2017-10-16 18:21] VITALS: BP 102/64; PULSE 75; RESP 18
[2017-10-16] MEDS: REMOVE OLD NICOTINE PATCH T-DERMAL SCH (21:00)
[2017-10-17 05:59] VITALS: BP 159/92; PULSE 68; RESP 16; TEMP 97.8; O2SAT 96
[2017-10-17] MEDS: OLANZapine 2.5 MG TAB PO SCH ×2 (09:00→20:53)
[2017-10-17] MEDS: QUEtiapine FUMARATE 25 MG TAB PO SCH ×2 (09:00→20:53)
[2017-10-17] MEDS: ESCITALOPRAM OXALATE 10 MG TAB PO SCH (09:00)
[2017-10-17] MEDS: amLODIPine BESYLATE 5 MG TAB PO SCH (09:00)
[2017-10-17] MEDS: levETIRAcetam 500 MG TAB PO SCH ×2 (09:00→20:53)
[2017-10-17] MEDS: NICOTINE 21 MG/24 HR PATCH T-DERMAL SCH (09:00)
--- NOTE | 2017-10-17 10:39 | PD.TTN ---
Patient Problems 1. Discharge planning 2. Medication compliance 3. Knowledge deficit 4. Lack of coping skills Progress Toward Goals Provider Present: Dr. Nicko Gabriel Provider Input: 10/17/17 Continue to stabilize pt then DC to [facility] Nurse(s) Present: Abner Nurse(s) Input: 10/17/17 Pt is gaurded, paranoid, refused medications this morning Psychiatric Counselors Present: Yahaira Yeh, [facility], Thom Fountain Jr., [facility], Jacki Coker, [facility] Group Spec/RT/OT/JENNINGS Present: DICK Estevez, Butch Navas, OT Group Spec/RT/OT/JENNINGS Input: 10/17/17 Pt attends select groups on unit. Remains isolated and gaurded. Discharge Plan DC to [facility] once stabilized Lisa Sneed/Ginger Oct 17, 2017 10:39
--- NOTE | 2017-10-17 13:52 | HHI.PYPN ---
Subjective Remarks Patient seen in day room with nurse, chart reviewed, patient showing mixed compliance with medication. Patient continues confused irritable paranoid fluid quite angry glaring attitude towards me. For now continue treatment Review of Systems Except as stated in HPI: all other systems reviewed are Neg Mental Status Examination Appearance: Disheveled Consciousness: Alert Orientation: Person, Place (Vaguely) Motor Activity: Normal gait (Patient in Kalyani chair) Speech: Hesitant (Mumbling), Stuttering Language: Adequate Fund of Knowledge: Inadequate Attention and Concentration: Easily Distracted Memory: Impaired Mood: Sad, Oppositional Affect: Other (Decreased range and intensity) Thought Process & Associations: Linear Thought Content: Depersonalization Hallucination Type: None Delusion Type: None (Vigilant) Suicidal Ideation: No Suicidal Plan: No Suicidal Intention: No Homicidal Ideation: No Homicidal Plan: No Homicidal Intention: No Insight: Poor Judgment: Poor Results Vitals/IOs Vital Signs Date Time Temp Pulse Resp B/P (MAP) Pulse Ox O2 Delivery O2 Flow Rate FiO2 10/17/17 05:59 97.8 68 16 159/92 (114) 96 Intake and Output 10/17/17 10/17/17 10/18/17 08:00 16:00 00:00 Intake Total 360 ml 240 ml Balance 360 ml 240 ml Assessment & Plan Problem List: (1) DEMENTIA IN OTH DISEASES CLASSD ELSWHR W BEHAVIORAL DISTURB ICD Codes: F02.81 - DEMENTIA IN OTH DISEASES CLASSD ELSWHR W BEHAVIORAL DISTURB (2) ALZHEIMER'S DISEASE WITH LATE ONSET ICD Codes: G30.1 - ALZHEIMER'S DISEASE WITH LATE ONSET Assessment & Plan Estimated LOS: days patient continues psychotic and paranoid mixed compliance medication continue medications no change Justification for Cont. Inpt. At this time patient would decompensate the placed on a lower level of care Discharge Planning To be determined Request HC Surrog/Guard Advoc?: Yes Jono Gabriel MD Oct 17, 2017 13:52
--- NOTE | 2017-10-17 13:56 | HHI.PR ---
Subjective Remarks Follow-up visit for HTN and DM. Patient seen today and examined today. Patient allowed to be examined. Awake and alert. Continues to be irritable. Unable to have meaningful conversations. She does not respond to questions. Occasionally would follow commands but is irritable. Objective Vitals Vital Signs Date Time Temp Pulse Resp B/P (MAP) Pulse Ox O2 Delivery O2 Flow Rate FiO2 10/17/17 05:59 97.8 68 16 159/92 (114) 96 10/16/17 18:21 75 18 102/64 (77) I/O 10/16/17 10/16/17 10/16/17 10/17/17 10/17/17 10/17/17 07:00 15:00 23:00 07:00 15:00 23:00 Intake Total 600 ml 600 ml Balance 600 ml 600 ml Intake Oral 600 ml 600 ml # Voids 2 Result Diagram: 10/14/17 0558 Objective Remarks GENERAL: This is a well-nourished, well-developed patient, in no apparent distress. SKIN: Warm and dry. HEENT: Normocephalic. Pupils equal round and reactive. Nose without bleeding. Airway patent. NECK: Trachea midline. No JVD. Supple. Cardiovascular: Regular rate and rhythm. Pulmonary: Lungs clear to auscultation, no wheeze, rhonchi MUSCULOSKELETAL: Extremities without clubbing, cyanosis. Bilateral lower extremity +2 edema, stasis, discolored, with varicosities NEUROLOGICAL: Awake and alert. Normal speech. Easily agitated, irritable. A/P Problem List: (1) ALZHEIMER'S DISEASE WITH LATE ONSET ICD Code: G30.1 - ALZHEIMER'S DISEASE WITH LATE ONSET (2) DEMENTIA IN OTH DISEASES CLASSD ELSWHR W BEHAVIORAL DISTURB ICD Code: F02.81 - DEMENTIA IN OTH DISEASES CLASSD ELSWHR W BEHAVIORAL DISTURB (3) HTN (hypertension) ICD Code: I10 - Essential (primary) hypertension Status: Chronic (4) DM (diabetes mellitus) ICD Code: E11.9 - Type 2 diabetes mellitus without complications Status: Chronic Assessment and Plan 71-year-old female with past medical history of HTN, DM, subarachnoid hemorrhage , and seizure disorder who presents to the emergency department under Rodriguez act after patient was at home not drinking for the past 3 days. Patient was also noted to be lying in swelling bed for the past 3 days, concern over patient's well-being thus she was Rodriguez acted and brought to [place] for psychiatric evaluation. Dementia/Alzheimer's with behavioral disturbances Paranoia -Treatment plan per psychiatry Self-neglect Poor PO intake -Patient continues to refuse medications, drinking some amounts of fluid, will add Ensure shake to meals. -Labs this am with improved BUN, continue to encourage PO intake. Hx seizure disorder -Continue on Keppra 500 mg every 12 hours -Patient refusing medications on and off, seizure precautions, fall precautions. -Monitor closely, if needed transfer to [facility]psych. Hypertension -Low dose Norvasc, patient noncompliant with medications. -Patient only intermittently takes medication. Mostly refused. Clonidine patch if patient refused to take BP meds. -It will be a difficult management since patient is noncompliant and very paranoid. -Patient is started on clonidine patch, monitor BP trend Diabetes type 2 diet controlled -Hemoglobin A1C 5.7, no ISS since patient not eating. Hypokalemia, resolved Thrombocytopenia, appear chronic -Outpatient follow-up with hematology DVT prophylaxis-ambulation Problem Qualifiers (1) DM (diabetes mellitus): Shanthi Betancur Oct 17, 2017 13:56
[2017-10-17] MEDS: OLANZapine IM 10 MG VIAL IM PRN (14:20)
[2017-10-17] MEDS: REMOVE OLD NICOTINE PATCH T-DERMAL SCH (21:40)
[2017-10-18 06:06] VITALS: BP 182/95; PULSE 65; RESP 17; TEMP 97.2; O2SAT 98
[2017-10-18] MEDS: levETIRAcetam 500 MG TAB PO SCH ×3 (08:26→20:46)
[2017-10-18] MEDS: amLODIPine BESYLATE 5 MG TAB PO SCH ×2 (08:26→08:31)
[2017-10-18] MEDS: OLANZapine 2.5 MG TAB PO SCH ×3 (08:26→20:46)
[2017-10-18] MEDS: QUEtiapine FUMARATE 25 MG TAB PO SCH ×3 (08:26→20:46)
[2017-10-18] MEDS: ESCITALOPRAM OXALATE 10 MG TAB PO SCH ×2 (08:26→08:30)
[2017-10-18] MEDS: NICOTINE 21 MG/24 HR PATCH T-DERMAL SCH (08:27)
--- NOTE | 2017-10-18 11:13 | HHI.PYPN ---
Subjective Remarks Patient seen in [place] court with Automatic Typewriter Inspector Ruperto, patient case continued with healthcare surrogate appointment. Patient was not responsive and Court questions. Patient seen by me prior to court then 2 she was refusing to answer any of my questions here at Hospital gaze at me continues to refuse to take oral medication. We will increase Zyprexa to 5 mg twice daily either p.o. or IM if she refuses oral Review of Systems Except as stated in HPI: all other systems reviewed are Neg Mental Status Examination Appearance: Disheveled Consciousness: Alert Orientation: Person, Place (Vaguely) Motor Activity: Normal gait (Patient in Kalyani chair) Speech: Hesitant (Mumbling), Stuttering Language: Adequate Fund of Knowledge: Inadequate Attention and Concentration: Easily Distracted Memory: Impaired Mood: Sad, Oppositional Affect: Other (Decreased range and intensity) Thought Process & Associations: Linear Thought Content: Depersonalization Hallucination Type: None Delusion Type: None (Vigilant) Suicidal Ideation: No Suicidal Plan: No Suicidal Intention: No Homicidal Ideation: No Homicidal Plan: No Homicidal Intention: No Insight: Poor Judgment: Poor Results Vitals/IOs Vital Signs Date Time Temp Pulse Resp B/P (MAP) Pulse Ox O2 Delivery O2 Flow Rate FiO2 10/18/17 06:06 97.2 65 17 182/95 (124) 98 Intake and Output 10/18/17 10/18/17 10/19/17 08:00 16:00 00:00 Intake Total 240 ml Balance 240 ml Assessment & Plan Problem List: (1) DEMENTIA IN OTH DISEASES CLASSD ELSWHR W BEHAVIORAL DISTURB ICD Codes: F02.81 - DEMENTIA IN OTH DISEASES CLASSD ELSWHR W BEHAVIORAL DISTURB (2) ALZHEIMER'S DISEASE WITH LATE ONSET ICD Codes: G30.1 - ALZHEIMER'S DISEASE WITH LATE ONSET Assessment & Plan Estimated LOS: days patient continues confused demented refusing oral medication, with poor oral intake also. She medication adjustment above Justification for Cont. Inpt. At this time patient would decompensate a place to a lower level of care Discharge Planning To be determined Request HC Surrog/Guard Advoc?: Yes Jono Gabriel MD Oct 18, 2017 11:13
[2017-10-18] MEDS ORDERED: OLANZapine IM 10 MG VIAL IM PRN (14:00)
--- NOTE | 2017-10-18 16:19 | HHI.PR ---
Subjective Remarks Follow-up visit for HTN and DM. Patient seen today and examined today. Reports she is doing okay. Denies pain or discomfort. No acute issues overnight. Continues to refuse medication as per nurse. Objective Vitals Vital Signs Date Time Temp Pulse Resp B/P (MAP) Pulse Ox O2 Delivery O2 Flow Rate FiO2 10/18/17 06:06 97.2 65 17 182/95 (124) 98 I/O 10/17/17 10/17/17 10/17/17 10/18/17 10/18/17 10/18/17 07:00 15:00 23:00 07:00 15:00 23:00 Intake Total 1200 ml 480 ml 120 ml 120 ml Balance 1200 ml 480 ml 120 ml 120 ml Intake Oral 1200 ml 480 ml 120 ml 120 ml # Voids 2 1 Result Diagram: 10/14/17 0558 Objective Remarks GENERAL: This is a well-nourished, well-developed patient, in no apparent distress. SKIN: Warm and dry. HEENT: Normocephalic. Pupils equal round and reactive. Nose without bleeding. Airway patent. NECK: Trachea midline. No JVD. Supple. Cardiovascular: Regular rate and rhythm. Pulmonary: Lungs clear to auscultation, no wheeze, rhonchi MUSCULOSKELETAL: Extremities without clubbing, cyanosis. Bilateral lower extremity +2 edema, stasis, discolored, with varicosities NEUROLOGICAL: Awake and alert. Normal speech. Easily agitated, irritable. A/P Problem List: (1) ALZHEIMER'S DISEASE WITH LATE ONSET ICD Code: G30.1 - ALZHEIMER'S DISEASE WITH LATE ONSET (2) DEMENTIA IN OTH DISEASES CLASSD ELSWHR W BEHAVIORAL DISTURB ICD Code: F02.81 - DEMENTIA IN OTH DISEASES CLASSD ELSWHR W BEHAVIORAL DISTURB (3) HTN (hypertension) ICD Code: I10 - Essential (primary) hypertension Status: Chronic (4) DM (diabetes mellitus) ICD Code: E11.9 - Type 2 diabetes mellitus without complications Status: Chronic Assessment and Plan 71-year-old female with past medical history of HTN, DM, subarachnoid hemorrhage , and seizure disorder who presents to the emergency department under Rodriguez act after patient was at home not drinking for the past 3 days. Patient was also noted to be lying in swelling bed for the past 3 days, concern over patient's well-being thus she was Rodriguez acted and brought to [place] for psychiatric evaluation. Dementia/Alzheimer's with behavioral disturbances Paranoia -Treatment plan per psychiatry Self-neglect Poor PO intake -Patient continues to refuse medications, drinking some amounts of fluid, will add Ensure shake to meals. -Labs this am with improved BUN, continue to encourage PO intake. Hx seizure disorder -Continue on Keppra 500 mg every 12 hours -Patient refusing medications on and off, seizure precautions, fall precautions. -Monitor closely, if needed transfer to [facility]. -Patient continues to refuse on and off her medication. Difficult to manage since patient is very noncompliant Hypertension -Low dose Norvasc, patient noncompliant with medications. -Patient only intermittently takes medication. Mostly refused. Clonidine patch if patient refused to take BP meds. -It will be a difficult management since patient is noncompliant and very paranoid. -Patient is started on clonidine patch, monitor BP trend Diabetes type 2 diet controlled -Hemoglobin A1C 5.7, no ISS since patient not eating. Hypokalemia, resolved Thrombocytopenia, appear chronic -Outpatient follow-up with hematology DVT prophylaxis-ambulation Patient is difficult to manage secondary to noncompliance. Currently she is stable and hemodynamically stable. Increase in BP and labile BP will persist due to noncompliance. Continue low dose clonidine to maintain BP <180. Continue with current regimen. Stable from Hospitalist standpoint. We will sign off. Reconsult as needed. Problem Qualifiers (1) DM (diabetes mellitus): Shanthi Betancur Oct 18, 2017 16:19
[2017-10-18 18:20] VITALS: BP 115/68; PULSE 80; RESP 18; TEMP 98.3; O2SAT 94
[2017-10-18] MEDS: REMOVE OLD NICOTINE PATCH T-DERMAL SCH (20:58)
[2017-10-19 06:00] VITALS: BP 158/92; PULSE 91; RESP 16; O2SAT 93
[2017-10-19] MEDS: OLANZapine 2.5 MG TAB PO SCH ×2 (08:42→21:18)
[2017-10-19] MEDS: amLODIPine BESYLATE 5 MG TAB PO SCH (08:42)
[2017-10-19] MEDS: QUEtiapine FUMARATE 25 MG TAB PO SCH ×2 (08:42→21:17)
[2017-10-19] MEDS: ESCITALOPRAM OXALATE 10 MG TAB PO SCH (08:42)
[2017-10-19] MEDS: levETIRAcetam 500 MG TAB PO SCH ×2 (08:42→21:17)
[2017-10-19] MEDS: NICOTINE 21 MG/24 HR PATCH T-DERMAL SCH (09:00)
[2017-10-19] MEDS ORDERED: OLANZapine IM 10 MG VIAL IM PRN (11:15)
--- NOTE | 2017-10-19 11:20 | HHI.PYPN ---
Subjective Remarks Patient seen in the day room with nurse Kemi, medical student Mandy, chart reviewed, patient showing mixed compliance medication. Staff states patient did not sleep well at all last night. She still somewhat irritable paranoid and vigilant. We will adjust Zyprexa to 15 mg p.o. at at bedtime to help with sleep at the paranoia. Continue daytime Seroquel little change at this time Review of Systems Except as stated in HPI: all other systems reviewed are Neg Mental Status Examination Appearance: Disheveled Consciousness: Alert Orientation: Person, Place (Vaguely) Motor Activity: Normal gait (Patient in Kalyani chair) Speech: Hesitant (Mumbling), Stuttering Language: Adequate Fund of Knowledge: Inadequate Attention and Concentration: Easily Distracted Memory: Impaired Mood: Sad, Oppositional Affect: Other (Decreased range and intensity) Thought Process & Associations: Linear Thought Content: Depersonalization Hallucination Type: None Delusion Type: None (Vigilant) Suicidal Ideation: No Suicidal Plan: No Suicidal Intention: No Homicidal Ideation: No Homicidal Plan: No Homicidal Intention: No Insight: Poor Judgment: Poor Results Vitals/IOs Vital Signs Date Time Temp Pulse Resp B/P (MAP) Pulse Ox O2 Delivery O2 Flow Rate FiO2 10/19/17 06:00 91 16 158/92 (114) 93 10/18/17 18:20 98.3 Intake and Output 10/19/17 10/19/17 10/20/17 08:00 16:00 00:00 Intake Total 240 ml Balance 240 ml Assessment & Plan Problem List: (1) DEMENTIA IN OTH DISEASES CLASSD ELSWHR W BEHAVIORAL DISTURB ICD Codes: F02.81 - DEMENTIA IN OTH DISEASES CLASSD ELSWHR W BEHAVIORAL DISTURB (2) ALZHEIMER'S DISEASE WITH LATE ONSET ICD Codes: G30.1 - ALZHEIMER'S DISEASE WITH LATE ONSET Assessment & Plan Estimated LOS: days patient continues confused and demented, very poor sleep, she medication adjustment above Justification for Cont. Inpt. At this time patient would decompensate a place to a lower level of care Discharge Planning To be determined Request HC Surrog/Guard Advoc?: Yes Jono Gabriel MD Oct 19, 2017 11:20
[2017-10-19 17:48] VITALS: BP 134/88; PULSE 82; RESP 16; TEMP 97.9; O2SAT 97
[2017-10-19 18:21] LABS: BICARBONATE 32.7 MEQ/L (21.0-32.0); CALCIUM 9.3 MG/DL (8.5-10.1); CREATININE 0.73 MG/DL (0.50-1.00)
[2017-10-19] MEDS: REMOVE OLD NICOTINE PATCH T-DERMAL SCH (21:00)
[2017-10-20 00:46] VITALS: BP 144/89; PULSE 69; RESP 20; TEMP 98; O2SAT 94
[2017-10-20] MEDS: NICOTINE 21 MG/24 HR PATCH T-DERMAL SCH (09:00)
[2017-10-20] MEDS: levETIRAcetam 500 MG TAB PO SCH ×2 (09:51→20:40)
[2017-10-20] MEDS: amLODIPine BESYLATE 5 MG TAB PO SCH (09:52)
[2017-10-20] MEDS: ESCITALOPRAM OXALATE 10 MG TAB PO SCH (09:52)
[2017-10-20] MEDS: QUEtiapine FUMARATE 25 MG TAB PO SCH ×2 (09:52→20:40)
--- NOTE | 2017-10-20 15:20 | HHI.PYPN ---
Subjective Remarks Pt seen and discussed with staff. Chart reviewed. She has been labile on unit with rambling speech. She has been paranoid about medications and expressed fears of being poisoned. She had a non-injurious fall last night per staff. She denies pain or discomfort. She states that RNs are pouring wet medicine onto the floor. No SI/HI. Mental Status Examination Appearance: Disheveled Consciousness: Alert Orientation: Person, Place (Vaguely) Motor Activity: Normal gait (Patient in Kalyani chair) Speech: Hesitant (Mumbling), Stuttering Language: Adequate Fund of Knowledge: Inadequate Attention and Concentration: Easily Distracted Memory: Impaired Mood: Sad, Oppositional Affect: Other (Decreased range and intensity) Thought Process & Associations: Linear Thought Content: Depersonalization Hallucination Type: None Delusion Type: None (Vigilant) Suicidal Ideation: No Suicidal Plan: No Suicidal Intention: No Homicidal Ideation: No Homicidal Plan: No Homicidal Intention: No Insight: Poor Judgment: Poor Results Labs Test 10/19/17 17:15 Blood Urea Nitrogen 19 MG/DL Creatinine 0.73 MG/DL Random Glucose 96 MG/DL Calcium Level 9.3 MG/DL Sodium Level 140 MEQ/L Potassium Level 3.3 MEQ/L Chloride Level 100 MEQ/L Carbon Dioxide Level 32.7 MEQ/L Anion Gap 7 MEQ/L Estimat Glomerular Filtration Rate 96 ML/MIN Vitals/IOs Vital Signs Date Time Temp Pulse Resp B/P (MAP) Pulse Ox O2 Delivery O2 Flow Rate FiO2 10/20/17 00:46 98.0 69 20 144/89 (107) 94 Intake and Output 10/20/17 10/20/17 10/21/17 08:00 16:00 00:00 Intake Total 480 ml Balance 480 ml Assessment & Plan Problem List: (1) DEMENTIA IN OTH DISEASES CLASSD ELSWHR W BEHAVIORAL DISTURB ICD Codes: F02.81 - DEMENTIA IN OTH DISEASES CLASSD ELSWHR W BEHAVIORAL DISTURB (2) ALZHEIMER'S DISEASE WITH LATE ONSET ICD Codes: G30.1 - ALZHEIMER'S DISEASE WITH LATE ONSET Assessment & Plan Continue current tx plan. Estimated LOS: days Justification for Cont. Inpt. risk of decompensation Request HC Surrog/Guard Advoc?: Yes Mahnaz Shah MD Oct 20, 2017 15:20
[2017-10-20] MEDS: OLANZapine 2.5 MG TAB PO SCH (20:40)
[2017-10-20] MEDS: REMOVE OLD NICOTINE PATCH T-DERMAL SCH (20:40)
[2017-10-21 06:06] VITALS: BP 144/90; PULSE 78; RESP 18; TEMP 97.9; O2SAT 96
[2017-10-21] MEDS: QUEtiapine FUMARATE 25 MG TAB PO SCH ×2 (09:00→21:06)
[2017-10-21] MEDS: amLODIPine BESYLATE 5 MG TAB PO SCH (09:00)
[2017-10-21] MEDS: NICOTINE 21 MG/24 HR PATCH T-DERMAL SCH (09:00)
[2017-10-21] MEDS: levETIRAcetam 500 MG TAB PO SCH ×2 (09:00→21:06)
[2017-10-21] MEDS: ESCITALOPRAM OXALATE 10 MG TAB PO SCH (09:00)
--- NOTE | 2017-10-21 11:48 | HHI.PYPN ---
Subjective Remarks Pt seen and discussed with nursing staff.Pt was agitated last night and had difficulty sleeping. Staff report that she finally slept around 200am. Pt reports that she is feeling "ok today" and hallucinations are "not as loud". Mental Status Examination Appearance: Appropriate Consciousness: Alert Orientation: Person Motor Activity: Other (lying in bed) Speech: Other (soft, mumbling) Language: Adequate Fund of Knowledge: Inadequate Attention and Concentration: Easily Distracted Memory: Impaired Mood: Irritable Affect: Flat Thought Process & Associations: Linear Thought Content: Depersonalization Hallucination Type: Other (internal stimulation) Delusion Type: Paranoid Suicidal Ideation: No Suicidal Plan: No Suicidal Intention: No Homicidal Ideation: No Homicidal Plan: No Homicidal Intention: No Insight: Poor Judgment: Poor Results Vitals/IOs Vital Signs Date Time Temp Pulse Resp B/P (MAP) Pulse Ox O2 Delivery O2 Flow Rate FiO2 10/21/17 06:06 97.9 78 18 144/90 (108) 96 Assessment & Plan Problem List: (1) DEMENTIA IN OTH DISEASES CLASSD ELSWHR W BEHAVIORAL DISTURB ICD Codes: F02.81 - DEMENTIA IN OTH DISEASES CLASSD ELSWHR W BEHAVIORAL DISTURB (2) ALZHEIMER'S DISEASE WITH LATE ONSET ICD Codes: G30.1 - ALZHEIMER'S DISEASE WITH LATE ONSET Assessment & Plan Continue current tx plan. Estimated LOS: days Justification for Cont. Inpt. risk of decompensation Request HC Surrog/Guard Advoc?: Yes Mahnaz Shah MD Oct 21, 2017 11:48
[2017-10-21] MEDS: REMOVE OLD NICOTINE PATCH T-DERMAL SCH (21:00)
[2017-10-21] MEDS: OLANZapine 2.5 MG TAB PO SCH (21:06)
[2017-10-22] MEDS: QUEtiapine FUMARATE 25 MG TAB PO SCH (09:00)
[2017-10-22] MEDS: amLODIPine BESYLATE 5 MG TAB PO SCH (09:00)
[2017-10-22] MEDS: ESCITALOPRAM OXALATE 10 MG TAB PO SCH (09:00)
[2017-10-22] MEDS: levETIRAcetam 500 MG TAB PO SCH ×2 (09:00→20:05)
[2017-10-22] MEDS: NICOTINE 21 MG/24 HR PATCH T-DERMAL SCH (09:00)
[2017-10-22] MEDS ORDERED: OLANZapine IM 10 MG VIAL IM PRN (12:30)
--- NOTE | 2017-10-22 12:35 | HHI.PYPN ---
Subjective Remarks Patient seen in day room with nurse Israel medical student Mandy, chart reviewed, patient continues to refuse oral medication. 7 significant sleep issues also. Attempted to speak with patient today she comes irritable mumbling almost nonsensical statements. We will discontinue the Seroquel orally. We will increase the Zyprexa to 15 mg twice daily orally, and if she refuses than 15 mg IM in its place Review of Systems Except as stated in HPI: all other systems reviewed are Neg Mental Status Examination Appearance: Appropriate Consciousness: Alert Orientation: Person Motor Activity: Other (lying in bed) Speech: Other (soft, mumbling) Language: Adequate Fund of Knowledge: Inadequate Attention and Concentration: Easily Distracted Memory: Impaired Mood: Irritable Affect: Flat Thought Process & Associations: Linear Thought Content: Depersonalization Hallucination Type: Other (internal stimulation) Delusion Type: Paranoid Suicidal Ideation: No Suicidal Plan: No Suicidal Intention: No Homicidal Ideation: No Homicidal Plan: No Homicidal Intention: No Insight: Poor Judgment: Poor Results Vitals/IOs Vital Signs Date Time Temp Pulse Resp B/P (MAP) Pulse Ox O2 Delivery O2 Flow Rate FiO2 10/21/17 06:06 97.9 78 18 144/90 (108) 96 Intake and Output 10/22/17 10/22/17 10/23/17 08:00 16:00 00:00 Intake Total 0 ml Balance 0 ml Assessment & Plan Problem List: (1) DEMENTIA IN OTH DISEASES CLASSD ELSWHR W BEHAVIORAL DISTURB ICD Codes: F02.81 - DEMENTIA IN OTH DISEASES CLASSD ELSWHR W BEHAVIORAL DISTURB (2) ALZHEIMER'S DISEASE WITH LATE ONSET ICD Codes: G30.1 - ALZHEIMER'S DISEASE WITH LATE ONSET Assessment & Plan Estimated LOS: days patient continues confused irritable noncompliant with all oral medications. See medication adjustments above Justification for Cont. Inpt. At this time patient would decompensate a place to the lower level of care Discharge Planning To be determined Request HC Surrog/Guard Advoc?: Yes Jono Gabriel MD Oct 22, 2017 12:35
--- NOTE | 2017-10-22 14:59 | PD.TTN ---
Patient Problems 1. Discharge planning 2. Medication compliance 3. Knowledge deficit 4. Lack of coping skills Progress Toward Goals Provider Present: Dr. Nicko Gabriel Provider Input: 10/22/17 increasing medications 10/17/17 Continue to stabilize pt then DC to [facility] Nurse(s) Present: Abner Nurse(s) Input: 10/22/17 Israel: she is not cooperating and not talking much, med compliant 10/17/17 Pt is gaurded, paranoid, refused medications this morning Psychiatric Counselors Present: Bharti Parker LCSW, Yahaira Yeh, [facility]PLAC[facility] BY [facility], Thom Fountain Jr., [facility], aJcki Coker, [facility] Psych Therapist Input: 10/22/17 patient remains watchful, guarded, not talking much Group Spec/RT/OT/JENNINGS Present: DICK Estevez, Butch Navas, OT Group Spec/RT/OT/JENNINGS Input: 10/22/17 she is not attending 10/17/17 Pt attends select groups on unit. Remains isolated and gaurded. Discharge Plan DC to [facility] once stabilized Bharti Parker LCSW Oct 22, 2017 14:59
[2017-10-22] MEDS: OLANZapine 2.5 MG TAB PO SCH (20:06)
[2017-10-22] MEDS: REMOVE OLD NICOTINE PATCH T-DERMAL SCH (20:08)
[2017-10-23 06:03] VITALS: BP 158/96; PULSE 75; RESP 18; TEMP 97.6; O2SAT 95
[2017-10-23] MEDS: NICOTINE 21 MG/24 HR PATCH T-DERMAL SCH (09:00)
[2017-10-23] MEDS: levETIRAcetam 500 MG TAB PO SCH ×2 (09:19→20:06)
[2017-10-23] MEDS: ESCITALOPRAM OXALATE 10 MG TAB PO SCH (09:19)
[2017-10-23] MEDS: amLODIPine BESYLATE 5 MG TAB PO SCH (09:19)
[2017-10-23] MEDS: OLANZapine 2.5 MG TAB PO SCH ×2 (09:20→20:06)
[2017-10-23] MEDS: cloNIDine HCL 0.1 MG/24 HR PATCH T-DERMAL SCH (10:00)
[2017-10-23] MEDS ORDERED: REMOVE OLD CATAPRES (CLONIDINE) PATCH T-DERMAL SCH (10:00)
--- NOTE | 2017-10-23 11:30 | HHI.PYPN ---
Subjective Remarks Patient seen in day room with nurse Israel and medical student Mandy, chart reviewed, patient compliant medications. The patient continues somewhat confused and her responses are not as delayed as it was prior to her eye contact is slightly improved. For now continue treatment Review of Systems Except as stated in HPI: all other systems reviewed are Neg Mental Status Examination Appearance: Appropriate Consciousness: Alert Orientation: Person Motor Activity: Other (lying in bed) Speech: Other (soft, mumbling) Language: Adequate Fund of Knowledge: Inadequate Attention and Concentration: Easily Distracted Memory: Impaired Mood: Irritable Affect: Flat Thought Process & Associations: Linear Thought Content: Depersonalization Hallucination Type: Other (internal stimulation) Delusion Type: Paranoid Suicidal Ideation: No Suicidal Plan: No Suicidal Intention: No Homicidal Ideation: No Homicidal Plan: No Homicidal Intention: No Insight: Poor Judgment: Poor Results Vitals/IOs Vital Signs Date Time Temp Pulse Resp B/P (MAP) Pulse Ox O2 Delivery O2 Flow Rate FiO2 10/23/17 06:03 97.6 75 18 158/96 (116) 95 Intake and Output 10/23/17 10/23/17 10/24/17 08:00 16:00 00:00 Intake Total 240 ml Balance 240 ml Assessment & Plan Problem List: (1) DEMENTIA IN OTH DISEASES CLASSD ELSWHR W BEHAVIORAL DISTURB ICD Codes: F02.81 - DEMENTIA IN OTH DISEASES CLASSD ELSWHR W BEHAVIORAL DISTURB (2) ALZHEIMER'S DISEASE WITH LATE ONSET ICD Codes: G30.1 - ALZHEIMER'S DISEASE WITH LATE ONSET Assessment & Plan Estimated LOS: days patient continues confused disoriented though somewhat calmer today less irritable and isolating, compliant medications. Justification for Cont. Inpt. At this time patient would decompensate placed a lower level of care Discharge Planning To be determined Request HC Surrog/Guard Advoc?: Yes Jono Gabriel MD Oct 23, 2017 11:30
[2017-10-23 17:44] VITALS: BP 103/61; PULSE 78; RESP 16; TEMP 98.3; O2SAT 95
[2017-10-23] MEDS: REMOVE OLD NICOTINE PATCH T-DERMAL SCH (20:06)
[2017-10-24 05:58] VITALS: BP 140/74; PULSE 67; RESP 15; TEMP 97.5; O2SAT 95
[2017-10-24] MEDS: ESCITALOPRAM OXALATE 10 MG TAB PO SCH (08:58)
[2017-10-24] MEDS: OLANZapine 2.5 MG TAB PO SCH (08:59)
[2017-10-24] MEDS: levETIRAcetam 500 MG TAB PO SCH ×2 (08:59→20:21)
[2017-10-24] MEDS: amLODIPine BESYLATE 5 MG TAB PO SCH (08:59)
[2017-10-24] MEDS: NICOTINE 21 MG/24 HR PATCH T-DERMAL SCH (09:00)
--- NOTE | 2017-10-24 11:49 | HHI.PYPN ---
Subjective Remarks Patient seen in day room with nurse Jane, also present was a possible caregiver in her home. Caregiver states that she is unable to take Lisa into her home at this time. She is already caring for an 85-year-old mother and does not have the capacity to take days. At this time I would agree with her. We will cancel the discharge had not been anticipated for today. We will look at a rehab facility as soon as possible for this lady. We will also increase her Zyprexa to 20 mg twice daily Review of Systems Except as stated in HPI: all other systems reviewed are Neg Mental Status Examination Appearance: Appropriate Consciousness: Alert Orientation: Person Motor Activity: Other (lying in bed) Speech: Other (soft, mumbling) Language: Adequate Fund of Knowledge: Inadequate Attention and Concentration: Easily Distracted Memory: Impaired Mood: Irritable Affect: Flat Thought Process & Associations: Linear Thought Content: Depersonalization Hallucination Type: Other (internal stimulation) Delusion Type: Paranoid Suicidal Ideation: No Suicidal Plan: No Suicidal Intention: No Homicidal Ideation: No Homicidal Plan: No Homicidal Intention: No Insight: Poor Judgment: Poor Results Vitals/IOs Vital Signs Date Time Temp Pulse Resp B/P (MAP) Pulse Ox O2 Delivery O2 Flow Rate FiO2 10/24/17 05:58 97.5 67 15 140/74 (96) 95 Intake and Output 10/24/17 10/24/17 10/25/17 08:00 16:00 00:00 Intake Total 120 ml Balance 120 ml Assessment & Plan Problem List: (1) DEMENTIA IN OTH DISEASES CLASSD ELSWHR W BEHAVIORAL DISTURB ICD Codes: F02.81 - DEMENTIA IN OTH DISEASES CLASSD ELSWHR W BEHAVIORAL DISTURB (2) ALZHEIMER'S DISEASE WITH LATE ONSET ICD Codes: G30.1 - ALZHEIMER'S DISEASE WITH LATE ONSET Assessment & Plan Estimated LOS: days patient continues confused demented, at times somewhat resistant to medication. It appears possible placement at home with his follow- through. We will now look for a rehab facility for this lady Justification for Cont. Inpt. At this time patient would decompensate a place to a lower level of care Discharge Planning Placement may become problematic Request HC Surrog/Guard Advoc?: Yes Jono Gabriel MD Oct 24, 2017 11:49
[2017-10-24] MEDS: OLANZapine 10 MG TAB PO SCH (20:21)
[2017-10-24] MEDS: REMOVE OLD NICOTINE PATCH T-DERMAL SCH (21:10)
[2017-10-25 06:04] VITALS: BP 145/80; PULSE 66; RESP 16; TEMP 97.5; O2SAT 95
[2017-10-25] MEDS: NICOTINE 21 MG/24 HR PATCH T-DERMAL SCH (09:00)
[2017-10-25] MEDS: OLANZapine 10 MG TAB PO SCH ×2 (10:06→20:33)
[2017-10-25] MEDS: amLODIPine BESYLATE 5 MG TAB PO SCH (10:06)
[2017-10-25] MEDS: ESCITALOPRAM OXALATE 10 MG TAB PO SCH (10:06)
[2017-10-25] MEDS: levETIRAcetam 500 MG TAB PO SCH ×2 (10:06→20:33)
--- NOTE | 2017-10-25 16:11 | HHI.PYPN ---
Subjective Remarks Patient seen in day room with medical student Mandy. Chart reviewed. Patient compliant medications. Today patient somewhat more alert and focused though still diffusely confused. For now continue treatment Review of Systems Except as stated in HPI: all other systems reviewed are Neg Mental Status Examination Appearance: Appropriate Consciousness: Alert Orientation: Person Motor Activity: Other (lying in bed) Speech: Other (soft, mumbling) Language: Adequate Fund of Knowledge: Inadequate Attention and Concentration: Easily Distracted Memory: Impaired Mood: Irritable Affect: Flat Thought Process & Associations: Linear Thought Content: Depersonalization Hallucination Type: Other (internal stimulation) Delusion Type: Paranoid Suicidal Ideation: No Suicidal Plan: No Suicidal Intention: No Homicidal Ideation: No Homicidal Plan: No Homicidal Intention: No Insight: Poor Judgment: Poor Results Vitals/IOs Vital Signs Date Time Temp Pulse Resp B/P (MAP) Pulse Ox O2 Delivery O2 Flow Rate FiO2 10/25/17 06:04 97.5 66 16 145/80 (101) 95 Intake and Output 10/25/17 10/25/17 10/26/17 08:00 16:00 00:00 Intake Total 360 ml Balance 360 ml Assessment & Plan Problem List: (1) DEMENTIA IN OTH DISEASES CLASSD ELSWHR W BEHAVIORAL DISTURB ICD Codes: F02.81 - DEMENTIA IN OTH DISEASES CLASSD ELSWHR W BEHAVIORAL DISTURB (2) ALZHEIMER'S DISEASE WITH LATE ONSET ICD Codes: G30.1 - ALZHEIMER'S DISEASE WITH LATE ONSET Assessment & Plan Estimated LOS: days patient remains diffusely confused disoriented though more alert today, compliant medication. Justification for Cont. Inpt. At this time patient would decompensate a place to a lower level of care Discharge Planning To be determined Request HC Surrog/Guard Advoc?: Yes Jono Gabriel MD Oct 25, 2017 16:11
[2017-10-25 17:39] VITALS: BP 121/74; PULSE 79; RESP 17; TEMP 97.7; O2SAT 96
[2017-10-25] MEDS: REMOVE OLD NICOTINE PATCH T-DERMAL SCH (20:36)
[2017-10-26] MEDS: ESCITALOPRAM OXALATE 10 MG TAB PO SCH (08:55)
[2017-10-26] MEDS: OLANZapine 10 MG TAB PO SCH ×2 (08:55→19:53)
[2017-10-26] MEDS: amLODIPine BESYLATE 5 MG TAB PO SCH (08:55)
[2017-10-26] MEDS: levETIRAcetam 500 MG TAB PO SCH ×2 (08:55→19:54)
[2017-10-26] MEDS: NICOTINE 21 MG/24 HR PATCH T-DERMAL SCH (09:00)
--- NOTE | 2017-10-26 09:07 | HHI.PYPN ---
Subjective Remarks Patient seen in day room with nurse Carlos, and medical student Leny, chart reviewed, patient compliant medication. Patient continues alert diffusely confused and somewhat mumbled responses. Though no behavioral issues. Review of Systems Except as stated in HPI: all other systems reviewed are Neg Mental Status Examination Appearance: Appropriate Consciousness: Alert Orientation: Person Motor Activity: Other (lying in bed) Speech: Other (soft, mumbling) Language: Adequate Fund of Knowledge: Inadequate Attention and Concentration: Easily Distracted Memory: Impaired Mood: Irritable Affect: Flat Thought Process & Associations: Linear Thought Content: Depersonalization Hallucination Type: Other (internal stimulation) Delusion Type: Paranoid Suicidal Ideation: No Suicidal Plan: No Suicidal Intention: No Homicidal Ideation: No Homicidal Plan: No Homicidal Intention: No Insight: Poor Judgment: Poor Results Vitals/IOs Vital Signs Date Time Temp Pulse Resp B/P (MAP) Pulse Ox O2 Delivery O2 Flow Rate FiO2 10/25/17 17:39 97.7 79 17 121/74 (90) 96 Assessment & Plan Problem List: (1) DEMENTIA IN OTH DISEASES CLASSD ELSWHR W BEHAVIORAL DISTURB ICD Codes: F02.81 - DEMENTIA IN OTH DISEASES CLASSD ELSWHR W BEHAVIORAL DISTURB (2) ALZHEIMER'S DISEASE WITH LATE ONSET ICD Codes: G30.1 - ALZHEIMER'S DISEASE WITH LATE ONSET Assessment & Plan Estimated LOS: days patient continues diffusely confused somewhat vigilant but no significant behavioral problems, Justification for Cont. Inpt. At this time patient would decompensate a place to a lower level of care Discharge Planning To be determined Request HC Surrog/Guard Advoc?: Yes Jono Gabriel MD Oct 26, 2017 09:07
[2017-10-26] MEDS: REMOVE OLD NICOTINE PATCH T-DERMAL SCH (19:54)
[2017-10-27 05:08] VITALS: BP 171/97; PULSE 72; RESP 16; TEMP 97.4; O2SAT 92
[2017-10-27] MEDS: NICOTINE 21 MG/24 HR PATCH T-DERMAL SCH (08:22)
[2017-10-27] MEDS: ESCITALOPRAM OXALATE 10 MG TAB PO SCH (08:29)
[2017-10-27] MEDS: OLANZapine 10 MG TAB PO SCH ×2 (08:30→20:51)
[2017-10-27] MEDS: amLODIPine BESYLATE 5 MG TAB PO SCH (08:30)
[2017-10-27] MEDS: levETIRAcetam 500 MG TAB PO SCH ×2 (08:30→20:51)
[2017-10-27 10:45] VITALS: BP 157/81; PULSE 73
--- NOTE | 2017-10-27 15:08 | HHI.PYPN ---
Subjective Remarks Patient was seen and case discussed with nursing. Patient is oppositional with eating. She remains seclusive to her room and talking to herself throughout the day. She speaks in a soft low tone is difficult to understand. She is alert and oriented 2. Says she is unsure if she wants to end her life. But denies any active suicidal or homicidal ideation intent or plan Mental Status Examination Appearance: Appropriate Consciousness: Alert Orientation: Person Motor Activity: Other (lying in bed) Speech: Other (soft, mumbling) Language: Adequate Fund of Knowledge: Inadequate Attention and Concentration: Easily Distracted Memory: Impaired Mood: Irritable Affect: Flat Thought Process & Associations: Linear Thought Content: Depersonalization Hallucination Type: Other (internal stimulation) Delusion Type: Paranoid Suicidal Ideation: Yes (Passive) Suicidal Plan: No Suicidal Intention: No Homicidal Ideation: No Homicidal Plan: No Homicidal Intention: No Insight: Poor Judgment: Poor Results Vitals/IOs Vital Signs Date Time Temp Pulse Resp B/P (MAP) Pulse Ox O2 Delivery O2 Flow Rate FiO2 10/27/17 10:45 73 157/81 (106) 10/27/17 05:08 97.4 16 92 Intake and Output 10/27/17 10/27/17 10/28/17 08:00 16:00 00:00 Intake Total 0 ml Balance 0 ml Assessment & Plan Problem List: (1) DEMENTIA IN OTH DISEASES CLASSD ELSWHR W BEHAVIORAL DISTURB ICD Codes: F02.81 - DEMENTIA IN OTH DISEASES CLASSD ELSWHR W BEHAVIORAL DISTURB (2) ALZHEIMER'S DISEASE WITH LATE ONSET ICD Codes: G30.1 - ALZHEIMER'S DISEASE WITH LATE ONSET Assessment & Plan Continue current treatment plan Justification for Cont. Inpt. Patient would decompensate in a less restrictive setting Request HC Surrog/Guard Advoc?: Yes Yong Pearce DO Oct 27, 2017 15:08
[2017-10-27 18:00] VITALS: BP 150/86; PULSE 67; RESP 16; TEMP 97.4; O2SAT 93
[2017-10-27] MEDS: REMOVE OLD NICOTINE PATCH T-DERMAL SCH (20:51)
[2017-10-28 06:00] VITALS: BP 160/82; PULSE 61; RESP 15; TEMP 97.4; O2SAT 95
[2017-10-28] MEDS: levETIRAcetam 500 MG TAB PO SCH ×2 (08:19→20:30)
[2017-10-28] MEDS: amLODIPine BESYLATE 5 MG TAB PO SCH (08:19)
[2017-10-28] MEDS: ESCITALOPRAM OXALATE 10 MG TAB PO SCH (08:19)
[2017-10-28] MEDS: NICOTINE 21 MG/24 HR PATCH T-DERMAL SCH (08:20)
[2017-10-28] MEDS: OLANZapine 10 MG TAB PO SCH ×2 (08:20→20:30)
--- NOTE | 2017-10-28 13:20 | HHI.PYPN ---
Subjective Remarks Patient was seen and case discussed with nursing. Patient is spending more time out of bed today. She is alert and oriented 1. Remains with nonsensical word salad. Eating well per nursing. Behaving well with no agitation Mental Status Examination Appearance: Appropriate Consciousness: Alert Orientation: Person Motor Activity: Other (lying in bed) Speech: Other (soft, mumbling) Language: Adequate Fund of Knowledge: Inadequate Attention and Concentration: Easily Distracted Memory: Impaired Mood: Irritable Affect: Flat Thought Process & Associations: Linear Thought Content: Depersonalization Hallucination Type: Other (internal stimulation) Delusion Type: Paranoid Suicidal Ideation: Yes (Passive) Suicidal Plan: No Suicidal Intention: No Homicidal Ideation: No Homicidal Plan: No Homicidal Intention: No Insight: Poor Judgment: Poor Results Vitals/IOs Vital Signs Date Time Temp Pulse Resp B/P (MAP) Pulse Ox O2 Delivery O2 Flow Rate FiO2 10/28/17 06:00 97.4 61 15 160/82 (108) 95 Assessment & Plan Problem List: (1) DEMENTIA IN OTH DISEASES CLASSD ELSWHR W BEHAVIORAL DISTURB ICD Codes: F02.81 - DEMENTIA IN OTH DISEASES CLASSD ELSWHR W BEHAVIORAL DISTURB (2) ALZHEIMER'S DISEASE WITH LATE ONSET ICD Codes: G30.1 - ALZHEIMER'S DISEASE WITH LATE ONSET Assessment & Plan Continue current treatment plan Justification for Cont. Inpt. Patient would decompensate in a less restrictive setting Request HC Surrog/Guard Advoc?: Yes Yong Pearce DO Oct 28, 2017 13:20
[2017-10-28 16:51] VITALS: BP 103/60; PULSE 90; RESP 16; TEMP 98.3; O2SAT 93
[2017-10-28] MEDS: REMOVE OLD NICOTINE PATCH T-DERMAL SCH (20:39)
[2017-10-29 06:00] VITALS: BP 147/100; PULSE 59; RESP 16; O2SAT 17
[2017-10-29] MEDS: NICOTINE 21 MG/24 HR PATCH T-DERMAL SCH (07:25)
[2017-10-29] MEDS: amLODIPine BESYLATE 5 MG TAB PO SCH (08:06)
[2017-10-29] MEDS: levETIRAcetam 500 MG TAB PO SCH ×2 (08:06→20:48)
[2017-10-29] MEDS: ESCITALOPRAM OXALATE 10 MG TAB PO SCH (08:06)
[2017-10-29] MEDS: OLANZapine 10 MG TAB PO SCH ×2 (08:06→20:48)
--- NOTE | 2017-10-29 16:45 | HHI.PYPN ---
Subjective Remarks Patient seen in day room with nurse Moraima, chart reviewed, patient complaint medications. Patient alert though diffusely confused and mumbling her words quite a bit. She is otherwise showing no significant behavioral problems. For now continue treatment Review of Systems Except as stated in HPI: all other systems reviewed are Neg Mental Status Examination Appearance: Appropriate Consciousness: Alert Orientation: Person Motor Activity: Other (lying in bed) Speech: Other (soft, mumbling) Language: Adequate Fund of Knowledge: Inadequate Attention and Concentration: Easily Distracted Memory: Impaired Mood: Irritable Affect: Flat Thought Process & Associations: Linear Thought Content: Depersonalization Hallucination Type: Other (internal stimulation) Delusion Type: Paranoid Suicidal Ideation: Yes (Passive) Suicidal Plan: No Suicidal Intention: No Homicidal Ideation: No Homicidal Plan: No Homicidal Intention: No Insight: Poor Judgment: Poor Results Vitals/IOs Vital Signs Date Time Temp Pulse Resp B/P (MAP) Pulse Ox O2 Delivery O2 Flow Rate FiO2 10/29/17 06:00 59 16 147/100 (116) 17 10/28/17 16:51 98.3 Intake and Output 10/29/17 10/29/17 10/30/17 08:00 16:00 00:00 Intake Total 120 ml Balance 120 ml Assessment & Plan Problem List: (1) DEMENTIA IN OTH DISEASES CLASSD ELSWHR W BEHAVIORAL DISTURB ICD Codes: F02.81 - DEMENTIA IN OTH DISEASES CLASSD ELSWHR W BEHAVIORAL DISTURB (2) ALZHEIMER'S DISEASE WITH LATE ONSET ICD Codes: G30.1 - ALZHEIMER'S DISEASE WITH LATE ONSET Assessment & Plan Estimated LOS: days patient continues confused and demented the low significant behavioral problems at this time. For now continue treatment Justification for Cont. Inpt. At this time patient would decompensate a place to a lower level of care Discharge Planning To be determined Request HC Surrog/Guard Advoc?: Yes Jono Gabriel MD Oct 29, 2017 16:45
[2017-10-29 18:50] VITALS: BP 113/77; PULSE 69; RESP 18; TEMP 97.5; O2SAT 95
[2017-10-29] MEDS: REMOVE OLD NICOTINE PATCH T-DERMAL SCH (20:49)
[2017-10-30 06:08] VITALS: BP 129/77; PULSE 60; RESP 16; TEMP 97.3; O2SAT 94
[2017-10-30] MEDS: ESCITALOPRAM OXALATE 10 MG TAB PO SCH (09:00)
[2017-10-30] MEDS: levETIRAcetam 500 MG TAB PO SCH ×2 (09:00→20:15)
[2017-10-30] MEDS: OLANZapine 10 MG TAB PO SCH ×2 (09:00→20:15)
[2017-10-30] MEDS: amLODIPine BESYLATE 5 MG TAB PO SCH (09:00)
[2017-10-30] MEDS: NICOTINE 21 MG/24 HR PATCH T-DERMAL SCH (09:00)
[2017-10-30] MEDS: cloNIDine HCL 0.1 MG/24 HR PATCH T-DERMAL SCH (09:52)
[2017-10-30] MEDS ORDERED: OLAN20TA PO (12:13)
[2017-10-30] MEDS ORDERED: LEVE500 PO (12:13)
[2017-10-30] MEDS ORDERED: ESCI10TA PO (12:13)
[2017-10-30] MEDS ORDERED: AMLO5 PO (12:13)
--- NOTE | 2017-10-30 12:19 | HHI.DS ---
Psychiatry Discharge Summary Inpatient Psychiatric care?: Yes Advance Directive: No Reason Not Provided: not available Mental Health AdvanceDirective: No Health Care Proxy: No Admission Admission Date October 10, 2017 at 22:32 Admission Diagnosis: (1) ALZHEIMER'S DISEASE WITH LATE ONSET ICD Code: G30.1 - ALZHEIMER'S DISEASE WITH LATE ONSET (2) DEMENTIA IN OTH DISEASES CLASSD ELSWHR W BEHAVIORAL DISTURB ICD Code: F02.81 - DEMENTIA IN OTH DISEASES CLASSD ELSWHR W BEHAVIORAL DISTURB Brief History Patient is a 71-year-old female who comes here under a Rodriguez act by the [place] [employer] dated 10/10/17 at 023 8 PM that document reviewed it states essentially [place] has not eaten or had any water in 3 days range refuses to eat or to bathe she has been in a soiled bed for 3 days. Family believes that if she does not take care of herself or refuses to be taking care of that she will might care for herself patient seen and screened in the ED urine toxicology negative blood alcohol level negative. Patient medically cleared and transferred to the unit. At the present time patient sitting quietly in Kalyani chair in the dayroom RN present throughout session patient is an alert -[place] female appears her stated age she is confused as to location though she knows she is in [place] from [place] she feels is 2011, she does not know the month or the situation. She is vague about her living situation is vague about the events got her to this hospital. Of interest patient was hospitalized here 09/25/17 through 10/04/79 under visit [id number]. She was told by Dr. Singh at that time. She was discharged to her cousin's home. Leading to the above behaviors. The readmission. Patient does deny suicidality homicidality voices or visions. At this time patient does meet criteria for further psychiatric hospitalization under the Rodriguez act I will do first opinion request second opinion. I feel she does not have capacity I will ask for health care surrogate and guardian advocate. Hospitalist consult will us, will have PT and OT consult will S. Considering the poor outcome of the past discharge need to consider a more safe and secure placement for this lady. The patient is a 71 years old -[place]kin[place] woman, who came to the hospital on the Rodriguez act due to self neglecting behavior, the patient has been refusing to eat and to take care of herself. She was consulted to me for second opinion. On the evaluation the patient is found in her bed. The patient seems to be quite oppositional, defiant, refusing to answer my questions. She says that she is fine, but does answer any further questions. She does not seem to be in acute distress or in pain. Tobacco Use In Past 30 Days: Refused To Answer Alcohol Use: Never Hospital Course Patient's hospital course was at times stressful due to patient's need for medical stabilization during the psychiatric hospitalization this led to a brief psych discharge and admission to the medical service to return to the psychiatric unit where she has been stable for the past few days, compliant with medications, continues somewhat feisty with her dementia at times somewhat mumbling with her responses but overall cooperative redirectable and directable. At this time we feel patient is reached maximum benefit of this hospitalization. Patient to be discharged to her family tomorrow morning early with Rx 1 month to follow-up [facility] act Results Blood Pressure 129 / 77 Vital Signs Date Time Temp Pulse Resp B/P (MAP) Pulse Ox O2 Delivery O2 Flow Rate FiO2 10/30/17 06:08 97.3 60 16 129/77 (94) 94 Laboratory Results Test 10/12/17 07:33 Cholesterol Level 171 MG/DL (120-200) HDL Cholesterol 30.2 MG/DL (40.0-60.0) Hemoglobin A1c 5.7 % (4.3-6.0) LDL Cholesterol 125 MG/DL (0-99) Triglycerides Level 81 MG/DL (42-150) Summary of Procedures None done Pending results at discharge: No Medications # of Antipsychotic meds at D/C: 1 Approp Antipsych med options 1 - Minimum of three failed multiple trials of monotherapy. 2 - Documented plan to taper to monotherapy due to previous use of multiple meds OR cross-taper in progress at D/C. 3 - Documentation of augmentation of Clozapine. 4 - Justification other than those listed in allowable values 1-3, document here : Discharge Discharge Date: Oct 30, 2017 Discharge Diagnosis: (1) ALZHEIMER'S DISEASE WITH LATE ONSET Diagnosis: Principal ICD Code: G30.1 - ALZHEIMER'S DISEASE WITH LATE ONSET (2) DEMENTIA IN OTH DISEASES CLASSD ELSWHR W BEHAVIORAL DISTURB Diagnosis: Principal ICD Code: F02.81 - DEMENTIA IN OTH DISEASES CLASSD ELSWHR W BEHAVIORAL DISTURB Pt Condition on Discharge: Stable Discharge Disposition: Discharge Home Discharge Instructions Diet Instructions: As Tolerated, No Restrictions Activities you can perform: Regular-No Restrictions Scheduled Appointment: Wilfredo Daynayonny Act Discharge Time > 30 minutes Mental Status Examination Appearance: Appropriate Consciousness: Alert Orientation: Person Motor Activity: Other (lying in bed) Speech: Other (soft, mumbling) Language: Adequate Fund of Knowledge: Inadequate Attention and Concentration: Easily Distracted Memory: Impaired Mood: Irritable Affect: Flat Thought Process & Associations: Linear Thought Content: Depersonalization Hallucination Type: Other (internal stimulation) Delusion Type: Paranoid Suicidal Ideation: Yes (Passive) Suicidal Plan: No Suicidal Intention: No Homicidal Ideation: No Homicidal Plan: No Homicidal Intention: No Insight: Poor Judgment: Poor Discharge/Advance Care Plan Health Problems: (1) DEMENTIA IN OTH DISEASES CLASSD ELSWHR W BEHAVIORAL DISTURB (2) ALZHEIMER'S DISEASE WITH LATE ONSET Goals to promote your health * To prevent worsening of your condition and complications * To maintain your health at the optimal level Directions to meet your goals Take your medications as prescribed Follow your dietary instruction Follow activity as directed Keep your appointments as scheduled Take your immunizations and boosters as scheduled If your symptoms worsen call your PCP, if no PCP go to Urgent Care Center or Emergency Room For 04/12 questions related to your inpatient stay or results of tests pending at discharge, please contact Dr. Jono Gabriel at Smoking is Dangerous to Your Health. Avoid second hand smoking Jono Gabriel MD Oct 30, 2017 12:19
[2017-10-30 18:05] VITALS: BP 138/77; PULSE 91; RESP 16; TEMP 98.3; O2SAT 92
[2017-10-30] MEDS: REMOVE OLD NICOTINE PATCH T-DERMAL SCH (20:16)
[2017-10-31 05:55] VITALS: BP 109/65; PULSE 71; RESP 18; TEMP 98.8; O2SAT 92
[2017-10-31] MEDS: levETIRAcetam 500 MG TAB PO SCH ×2 (07:39→20:57)
[2017-10-31] MEDS: ESCITALOPRAM OXALATE 10 MG TAB PO SCH (07:39)
[2017-10-31] MEDS: OLANZapine 10 MG TAB PO SCH ×2 (07:40→20:57)
[2017-10-31] MEDS: amLODIPine BESYLATE 5 MG TAB PO SCH (07:41)
[2017-10-31] MEDS: NICOTINE 21 MG/24 HR PATCH T-DERMAL SCH (09:00)
--- NOTE | 2017-10-31 15:32 | HHI.PYPN ---
Subjective Remarks The discharge that was anticipated for today fell through. Receiving his family members unable to make appropriate arrangements for patient's safety. Thus discharge will be canceled we will continue all orders medication procedures and consultations probably look for perhaps a more appropriate placement Review of Systems Except as stated in HPI: all other systems reviewed are Neg Mental Status Examination Appearance: Appropriate Consciousness: Alert Orientation: Person Motor Activity: Other (lying in bed) Speech: Other (soft, mumbling) Language: Adequate Fund of Knowledge: Inadequate Attention and Concentration: Easily Distracted Memory: Impaired Mood: Irritable Affect: Flat Thought Process & Associations: Linear Thought Content: Depersonalization Hallucination Type: Other (internal stimulation) Delusion Type: Paranoid Suicidal Ideation: Yes (Passive) Suicidal Plan: No Suicidal Intention: No Homicidal Ideation: No Homicidal Plan: No Homicidal Intention: No Insight: Poor Judgment: Poor Results Vitals/IOs Vital Signs Date Time Temp Pulse Resp B/P (MAP) Pulse Ox O2 Delivery O2 Flow Rate FiO2 10/31/17 05:55 98.8 71 18 109/65 (80) 92 Assessment & Plan Problem List: (1) DEMENTIA IN OTH DISEASES CLASSD ELSWHR W BEHAVIORAL DISTURB ICD Codes: F02.81 - DEMENTIA IN OTH DISEASES CLASSD ELSWHR W BEHAVIORAL DISTURB (2) ALZHEIMER'S DISEASE WITH LATE ONSET ICD Codes: G30.1 - ALZHEIMER'S DISEASE WITH LATE ONSET Assessment & Plan Estimated LOS: days patient continues demented and confused, no specific changes in her behavior or her mental status. The discharge has been canceled due to an unsafe discharge. We will need to work again with family and facilities in the community Justification for Cont. Inpt. At this time patient would decompensate if not placed in an appropriate level of care Discharge Planning To be determined Request HC Surrog/Guard Advoc?: Yes Jono Gabriel MD Oct 31, 2017 15:32
[2017-10-31 17:57] VITALS: BP 113/74; PULSE 87; RESP 18; TEMP 97.1; O2SAT 97
[2017-10-31] MEDS: REMOVE OLD NICOTINE PATCH T-DERMAL SCH (20:57)
[2017-11-01 06:20] VITALS: BP 124/71; PULSE 79; RESP 16; TEMP 98.3; O2SAT 95
[2017-11-01] MEDS: levETIRAcetam 500 MG TAB PO SCH (08:50)
[2017-11-01] MEDS: ESCITALOPRAM OXALATE 10 MG TAB PO SCH (08:50)
[2017-11-01] MEDS: amLODIPine BESYLATE 5 MG TAB PO SCH (08:50)
[2017-11-01] MEDS: OLANZapine 10 MG TAB PO SCH (08:50)
[2017-11-01] MEDS: NICOTINE 21 MG/24 HR PATCH T-DERMAL SCH (08:50)
--- NOTE | 2017-11-01 12:03 | HHI.PYPN ---
Subjective Remarks Patient seen in day room with nurse Nicole, chart reviewed, patient compliant medication. Patient somewhat more alert today needing some assistance eating her lunch, though her speech is still markedly confused disoriented. She is been no behavior problems today Review of Systems Except as stated in HPI: all other systems reviewed are Neg Mental Status Examination Appearance: Appropriate Consciousness: Alert Orientation: Person Motor Activity: Other (lying in bed) Speech: Other (soft, mumbling) Language: Adequate Fund of Knowledge: Inadequate Attention and Concentration: Easily Distracted Memory: Impaired Mood: Irritable Affect: Flat Thought Process & Associations: Linear Thought Content: Depersonalization Hallucination Type: Other (internal stimulation) Delusion Type: Paranoid Suicidal Ideation: Yes (Passive) Suicidal Plan: No Suicidal Intention: No Homicidal Ideation: No Homicidal Plan: No Homicidal Intention: No Insight: Poor Judgment: Poor Results Vitals/IOs Vital Signs Date Time Temp Pulse Resp B/P (MAP) Pulse Ox O2 Delivery O2 Flow Rate FiO2 11/01/17 06:20 98.3 79 16 124/71 (88) 95 Intake and Output 11/01/17 11/01/17 11/02/17 08:00 16:00 00:00 Intake Total 60 ml Balance 60 ml Assessment & Plan Problem List: (1) DEMENTIA IN OTH DISEASES CLASSD ELSWHR W BEHAVIORAL DISTURB ICD Codes: F02.81 - DEMENTIA IN OTH DISEASES CLASSD ELSWHR W BEHAVIORAL DISTURB (2) ALZHEIMER'S DISEASE WITH LATE ONSET ICD Codes: G30.1 - ALZHEIMER'S DISEASE WITH LATE ONSET Assessment & Plan Estimated LOS: days patient remains confused disoriented, both somewhat calmer this afternoon Justification for Cont. Inpt. At this time patient would decompensate if not placed in an appropriate level of care Discharge Planning To be determined Request HC Surrog/Guard Advoc?: Yes Jono Gabrile MD Nov 01, 2017 12:03
== END 2017-11-01 16:45 | DRG 57 ==
LOC: NEPE 20:02 → NEDA 22:32 → H250 23:02
PROVIDERS: ADMIT Psychiatry & Neurology Psychiatry; ATTEND Psychiatry & Neurology Psychiatry
DX: G30.1 Alzheimer's disease with late onset (principal); R45.851 Suicidal ideations; D69.6 Thrombocytopenia, unspecified; F02.80 Dementia in other diseases classified elsewhere, unspecified severity, without behavioral disturbance, psychotic disturbance, mood disturbance, and anxiety; I10 Essential (primary) hypertension; G40.909 Epilepsy, unspecified, not intractable, without status epilepticus; E11.9 Type 2 diabetes mellitus without complications; E87.6 Hypokalemia; J45.909 Unspecified asthma, uncomplicated; W19.XXXA Unspecified fall, initial encounter; M19.90 Unspecified osteoarthritis, unspecified site; Z72.0 Tobacco use; Z91.14 Patient's other noncompliance with medication regimen; Z82.3 Family history of stroke; Z79.899 Other long term (current) drug therapy
CPT/HCPCS: 80048; 80053; 80061; 80307; 81001; 82948; 83036; 84443; 85025; 99285; P9612